=== PATIENT | female | born 1935 | race Caucasian/White ===

== ENCOUNTER 2017-06-02 16:16 | Inpatient (IN) | payer MEDICARE, OTHER ==
[2017-06-02] MEDS ORDERED: methylPREDNISolone 125 MG* 2 ML VIAL IV ONE (16:51)
[2017-06-02] MEDS ORDERED: Albuterol/Ipratropium NEB.SOL* Albuterol 2.5 MG/Ipratropium 0.5 MG 3 ML INH ONE (16:51)
--- NOTE | 2017-06-02 17:43 | RAD ---
INDICATION: Short of breath COMPARISON: March 23, 2015 TECHNIQUE: An AP portable view obtained at 1715 hours is submitted. FINDINGS: Bones/Soft Tissues: There are no acute bony findings. There is sternotomy. There is a scoliotic deformity. There is prior lumbar fusion. Cardiomediastinal: The cardiomediastinal silhouette is unchanged. The heart is normal in size. There is prior valvular surgery. Lungs: There is hyperinflation with chronic interstitial change. Pleura: There are no pleural effusions. Other: None IMPRESSION: HYPERINFLATION. POSTOPERATIVE CHANGE. NO ACUTE FINDINGS.
[2017-06-02 18:02] LABS: ABS Basophils 0 10^3/ul (0-0.2); ABS Eosinophils 0 10^3/ul (0-0.6); ABS Lymphocytes 0.9 10^3/ul (1.0-4.8); ABS Monocytes 0.5 10^3/ul (0-0.8); ABS Neutrophils 3.8 10^3/ul (1.5-7.7); ABS Nucleated RBC 0 10^3/ul; Eosinophil % 0.8 % (0-6); Hematocrit 43 % (35-47); Hemoglobin 14.3 g/dl (12.0-16.0); Lymphocyte % 16.4 % (25-47); Mean Corpuscular HGB Conc 33 g/dl (31-36); Mean Corpuscular Hemoglobin 32 pg (27-31); Mean Corpuscular Volume 95 fL (80-97); Mean Platelet Volume 9 um3 (7.4-10.4); Nucleated Red Blood Cells % 0.2; Platelet Count 148 10^3/ul (150-450); Red Cell Distribution Width 13 % (10.5-15); White Blood Count 5.2 10^3/ul (3.5-10.8)
[2017-06-02 18:16] LABS: EGFR Non-African American 54.3 (>60)
[2017-06-02 18:18] LABS: INR 0.94 (0.77-1.02)
[2017-06-02] MEDS ORDERED: Oseltamivir CAP* 75 MG CAP PO ONE (18:35)
[2017-06-02] MEDS ORDERED: HYDROcodone/ACETAMIN 5-325 MG* 1 TAB PO PRN (19:01)
[2017-06-02] MEDS ORDERED: Nitroglycerin TAB 0.4 MG* 0.4 MG TAB SL PRN (19:01)
[2017-06-02] MEDS ORDERED: Cetirizine* 10 MG TAB PO PRN (19:01)
[2017-06-02 19:28] LABS: Urine Appearance Clear; Urine Blood Negative (Negative); Urine Color Yellow; Urine Ketones Negative (Negative); Urine Protein 1+(30 mg/dL) (Negative); Urine Specific Gravity 1.019 (1.010-1.030); Urine Urobilinogen Negative (Negative)
[2017-06-02] MEDS ORDERED: Azithromycin TAB* 250 MG PO ONE ×2 (19:32)
[2017-06-02] MEDS ORDERED: Acetaminophen TAB* 325 MG PO PRN (19:36)
[2017-06-02] MEDS: Mometasone/Formoter 200/5 MDI INH SCH (19:55)
[2017-06-02] MEDS: Albuterol/Ipratropium NEB.SOL* Albuterol 2.5 MG/Ipratropium 0.5 MG 3 ML INH SCH (19:55)
[2017-06-02] MEDS: NS 0.9% 1000 ML* 1,000 ML IV SCH (21:13)
[2017-06-02] MEDS: Atorvastatin* 20 MG TAB PO SCH (21:28)
[2017-06-02] MEDS: ceFUROXime TAB(*) 250 MG PO SCH (21:28)
--- NOTE | 2017-06-02 22:15 | HP ---
HISTORY AND PHYSICAL: DATE OF ADMISSION: 06/02/17 ADMITTING PROVIDER: Vin Diego MD PRIMARY CARE PROVIDER: Dr. Milligan. CHIEF COMPLAINT: "Breathing hard; sorting out her medications." HISTORY OF PRESENT ILLNESS AND HOSPITAL COURSE: Charline Reyes is an 81-year-old female with past medical history of CAD, status post 2-vessel CABG and mitral valve repair in 2008, COPD, hypertension, hyperlipidemia, osteoporosis, diverticulitis (February 2011), who is a resident at [facility], who likely has some degree of dementia as well. She says that she called 911 because she was "breathing hard" and to sort out her medications. She is unable to give a clear history of the events but says that she has had a cough over the last week or so and at some point, saw Dr. Milligan and seems to have been prescribed cefuroxime 500 mg b.i.d. starting on 05/31/17. Her chief complaint actually seems to be that she was being told to drink a lot of fluids and orange juice and was not "allowed to eat" as much food as she would like and was getting frustrated. Per EMS, she was not improved on the cefuroxime and had a productive cough. She currently denies any fevers. Has occasional chills. Denies headaches. She has occasional back pains related to her surgical history. Denies abdominal pain or diarrhea. She is somewhat constipated with small marble-like bowel movements. She denies any chest tightness or chest pain. She uses a walker at baseline. On presentation to the [facility] Emergency Room , she was found to be influenza B positive. She was initially tachypneic to 25 on room air, satting 94% and hypoxic recorded to 84% on room air, and started on 2 L nasal cannula and referred to hospitalist service for admission for hypoxic respiratory failure secondary to influenza B. She also attest to nasal congestion. She cannot remember how long she has been at [facility] though when penned down, says a couple weeks. She formally had a condo in [place] which she has sold. PAST MEDICAL HISTORY: Includes hypertension, CAD, status post CABG, mitral valve repair in 2008, depression, frequent falls, COPD, hypertension, osteoporosis, postoperative atrial fibrillation (2008) does not seem to have returned, diverticulitis in 2010. MEDICATIONS: Include: 1. Ceftin 500 mg b.i.d., started on 05/31/17. 2. Atorvastatin 20 mg daily. 3. Fish oil 1000 mg p.o. every other day. 4. Ibuprofen 200 mg p.r.n. 5. Claritin 10 mg p.o. daily p.r.n. 6. Percocet 5/325 mg q.4 hours p.r.n. 7. Nitroglycerin 0.4 mg sublingual every 5 minutes p.r.n. 8. Vitamin D3 5000 units daily. 9. Celecoxib 200 mg every day. 10. Triamterene/hydrochlorothiazide 37.5/25 mg daily. 11. Advair 250 mg/50 mcg twice a day p.r.n. 12. Aspirin 81 mg daily. 13. Metoprolol tartrate 12.5 mg q.h.s. ALLERGIES: BIAXIN, ZITHROMAX, CODEINE, MIDODRINE, LISINOPRIL, PRINIVIL, AVELOX , OXYCODONE, TRAMADOL, DOXYCYCLINE, CLINDAMYCIN, AMBIEN, and MECLIZINE. FAMILY HISTORY: Heart attack in her father at age 55, heart attack in mother at age 78, and brother in his late 80s. SOCIAL HISTORY: The patient is a former teacher. Former smoker, quit 9 years ago, smoked between high school and age 72, approximately 65-pack years. She drinks a half a glass of wine each night at dinner. Her medical surrogate is her daughter, Floresita Arthur, though she is not currently on speaking terms with her and seems to have an estranged relationship. She also has a brother in [place], [place]. She is a DNR/DNI. REVIEW OF SYSTEMS: A complete 14-point review of systems negative except as per HPI. PHYSICAL EXAMINATION GENERAL APPEARANCE: Appears stated age but with poor muscle mass, somewhat cachectic. BMI is 19.9. No acute distress. VITAL SIGNS: Temperature 99.1; heart rate 70s to 90s; respiratory rate 25; O2 sat initially 94%, but dipped down to 84%, currently 93% on 2 L; blood pressure 121/64 initially, dipping down to 95/70 currently. HEENT: Normocephalic, atraumatic. Pupils equal, round, and reactive to light. EOMI NECK: No cervical lymphadenopathy. RESPIRATORY: Bilateral wheezing, both inspiratory and expiratory phase. Coarse rhonchi. No rales CARDIOVASCULAR: Regular rate and rhythm. No murmurs, rubs, or gallops. ABDOMEN: Soft, nontender. Paraumbilical hernia. No rebound, no guarding. The patient had a Sands placed in the emergency room draining clear yellow urine. EXTREMITIES: Warm and well perfused. SKIN: On lower extremities in particular left lower extremity, skin is very thin and occasionally hyperpigmented alternating with hypopigmentation, evidence of prior skin breaks it seems, no active skin breaks. Also ecchymosis on her left forearm about 3 cm in diameter. NEUROLOGIC: Cranial nerves II through XII intact. Clinical Laboratory Scientist strength 5/5. Hip flexion 5/5. Sensation intact bilaterally. LABORATORY DATA: White count 5.2, hemoglobin 14.3, hematocrit 43, platelets 148. INR 0.94. Sodium 137, potassium 4.0, chloride 95, carbon dioxide 38, creatinine 0.98, glucose 94, lactic acid 1.6. LFTs within normal limits. BNP 48. Serology influenza B positive. Urine pending. IMAGING: Chest x-ray showed no acute process, evidence of hyperinflation and evidence of prior valvular surgery. EKG demonstrated normal sinus rhythm, heart rate 72, normal axis, PAC, no T-wave inversions or ST changes, QTC 465, QRS 110. ASSESSMENT AND PLAN: Charline Reyes is an 81-year-old female with past medical history of coronary artery disease, status post CABG, mitral valve repair, and chronic obstructive pulmonary disease with approximately [id number] history, presenting with incompletely articulated history of respiratory distress and junky cough and found to be influenza B positive. She had some slight desaturations in the emergency room and is being admitted to observation status. Tamiflu is being initiated and can be monitored in the safe setting. We will continue her cefuroxime 500 mg b.i.d. for now. Chest x-ray was without evidence of infiltrate. She has no leukocytosis. I suspect this is all influenza B in the setting of chronic obstructive pulmonary disease. She is status post 125 mg of Solu-Medrol in the emergency room. We will continue 40 mg daily, start Dulera, DuoNebs q.6 hours standing and q.2 hours p.r.n. We will also start azithromycin for atypical coverage and get a sputum culture as well. We will get urine, strep pneumoniae antigen. For her coronary artery disease , we will continue her aspirin and nitroglycerin sublingual p.r.n. and her Lipitor in addition to her metoprolol tartrate 12.5 mg daily. For her hypertension, we will hold her triamterene/hydrochlorothiazide in the setting of acute illness and normotension here, titrate back as able. She is being admitted to observation status. We will remove the sands (placed to obtain urine sample apparently). We will not put her on telemetry and she is a DNR/ DNI. Her medical surrogate is Floresita Arthur, her daughter. She will continue the heart healthy diet. [id number]/[facility] #: [id number] MTDD
[2017-06-03] MEDS: Albuterol/Ipratropium NEB.SOL* Albuterol 2.5 MG/Ipratropium 0.5 MG 3 ML INH SCH ×4 (03:51→19:12)
[2017-06-03] MEDS: Mometasone/Formoter 200/5 MDI INH SCH ×2 (07:40→19:12)
[2017-06-03] MEDS: Tiotropium CAP.INH* CAP.INH/18 MCG (USE ORDER SET !) INH SCH (07:40)
[2017-06-03] MEDS ORDERED: Spiriva Inhaler DEVICE* 1 EACH DEVICE INH ONE (09:00)
[2017-06-03] MEDS: Cholecalciferol TAB* 1000 UNITS PO SCH (09:29)
[2017-06-03] MEDS: Atorvastatin* 20 MG TAB PO SCH (09:31)
[2017-06-03] MEDS: predniSONE TAB* 20 MG PO SCH (09:31)
[2017-06-03] MEDS: ceFUROXime TAB(*) 250 MG PO SCH ×2 (09:31→20:51)
[2017-06-03] MEDS: Aspirin EC Low Dose* 81 MG TAB.EC PO SCH (09:36)
[2017-06-03] MEDS: celeCOXIB CAP* 200 MG PO SCH (09:37)
[2017-06-03] MEDS: Oseltamivir SUSP 30 MG dose* 30 MG/5 ML ORAL.SYRIN PO SCH ×2 (10:57→20:51)
[2017-06-03] MEDS: Metoprolol Tartrate TAB* 25 MG PO SCH (10:57)
[2017-06-03] MEDS: NS 0.9% 1000 ML* 1,000 ML IV SCH (11:00)
[2017-06-03] MEDS: Azithromycin TAB* 250 MG PO SCH (14:43)
--- NOTE | 2017-06-03 17:27 | PN ---
Subjective Date of Service: 06/03/17 Interval History: Desat to 88% with PT. Still bronchospastic. Afebrile on 2L. no chest pain Objective Active Medications: Acetaminophen (Tylenol Tab*) 650 mg PO Q4H PRN PRN Reason: FEVER/PAIN Hydrocodone Bitart/Acetaminophen ([place] 5-325 Tab*) 1 tab PO Q4H PRN PRN Reason: PAIN Albuterol/Ipratropium (Duoneb (Albuterol 2.5 Mg/Ipratropium 0.5 Mg)) 1 neb INH Q6H [facility] Last Admin: 06/03/17 14:01 Dose: 1 neb Aspirin (Aspirin Ec Low Dose*) 81 mg PO DAILY [facility] Last Admin: 06/03/17 09:36 Dose: 81 mg Atorvastatin Calcium (Lipitor*) 20 mg PO DAILY [facility] Last Admin: 06/03/17 09:31 Dose: 20 mg Azithromycin (Zithromax Tab*) 250 mg PO DAILY [facility] Last Admin: 06/03/17 14:43 Dose: 250 mg Cefuroxime Axetil (Ceftin Tab(*)) 500 mg PO BID [facility] Last Admin: 06/03/17 09:31 Dose: 500 mg Celecoxib (Celebrex Cap*) 200 mg PO DAILY [facility] Last Admin: 06/03/17 09:37 Dose: 200 mg Cetirizine HCl (Zyrtec*) 10 mg PO DAILY PRN PRN Reason: Allergy Symptoms Cholecalciferol (Vitamin D Tab*) 5,000 units PO DAILY [facility] Last Admin: 06/03/17 09:29 Dose: 5,000 units Metoprolol Tartrate (Lopressor Tab*) 12.5 mg PO DAILY [facility] Last Admin: 06/03/17 10:57 Dose: 12.5 mg Mometasone Furoate/Formoterol Fumar (Dulera 200/5 Mdi*) 2 puff INH BID [facility] Last Admin: 06/03/17 07:40 Dose: 2 puff Nitroglycerin (Nitroglycerin Tab 0.4 Mg*) 0.4 mg SL Q5M PRN PRN Reason: PAIN - CHEST Oseltamivir Phosphate (Tamiflu Susp 30 Mg Dose*) 30 mg PO BID [facility] Last Admin: 06/03/17 10:57 Dose: 30 mg Prednisone (Deltasone Tab*) 40 mg PO DAILY [facility] Last Admin: 06/03/17 09:31 Dose: 40 mg Tiotropium [place] (Spiriva Cap.Inh*) 1 cap INH DAILY [facility] Last Admin: 06/03/17 07:40 Dose: 1 cap.inh Oxygen Devices in Use Now: Nasal Cannula Appearance: NAD, cachexia. Eyes: No Scleral Icterus, PERRLA Ears/Nose/Mouth/Throat: NL Teeth, Lips, Gums Respiratory: - - coarse rhonchi throughout Cardiovascular: NL Sounds; No Murmurs; No JVD, RRR, - - visible sternotomy scar Abdominal: NL Sounds; No Tenderness; No Distention, No Hepatosplenomegaly Extremities: - - trace edema Skin: No Rash or Ulcers, No Nodules or Sclerosis, - - alternating hypo and hyperpigmented skin LLE b/l Neurological: - - oriented to name and hospital Nutrition: Taking PO's Result Diagrams: 06/02/17 17:45 06/02/17 17:45 Additional Lab and Data: Laboratory Results - last 24 hr 06/02/17 17:18 Influenza A (Rapid) Negative Influenza B (Rapid) Positive H Microbiology and Other Data: Microbiology 06/02/17 17:25 Blood Venous Aerobic Blood Culture - Preliminary No Growth Day 1 06/02/17 17:25 Blood Venous Anaerobic Blood Culture - Preliminary No Growth Day 1 06/02/17 17:45 Blood Venous Aerobic Blood Culture - Preliminary No Growth Day 1 06/02/17 17:45 Blood Venous Anaerobic Blood Culture - Preliminary No Growth Day 1 06/03/17 04:00 Urine Legionella Urinary Antigen - Final Negative Legionella 06/03/17 04:00 Urine Streptococcus pneumoniae Ag Screen - Final Negative S. pneumo Antigen 06/02/17 17:05 Nasal Influenza Types A,B Antigen (CRISTELA) - Final Specimen received for Influenza A/B Molecular testing Assess/Plan/Problems-Billing Assessment: 81 yo PMH CAD, MVR s/p repair, COPD, HTN p/w influenza B and hypoxic respiratory failure w/ bronchspasm. - Patient Problems (1) COPD (chronic obstructive pulmonary disease) Current Visit: Yes Status: Acute Code(s): J44.9 - CHRONIC OBSTRUCTIVE PULMONARY DISEASE, UNSPECIFIED SNOMED Code(s): 03020338 Comment: continue dulera, spiriva, duo nebs. prednisone taper. was only on MEGAN upon admission. productive cough. f/u sputum cx cefuroxime(recent home) consider switch to ceftriaxone. Continue azithromycin (2) Influenza B Current Visit: Yes Status: Acute Code(s): J10.1 - FLU DUE TO OTH IDENT INFLUENZA VIRUS W OTH RESP MANIFEST SNOMED Code(s): 29234208 Comment: continue tamiflu. (3) CAD (coronary artery disease) Current Visit: Yes Status: Acute Code(s): I25.10 - ATHSCL HEART DISEASE OF [place] CORONARY ARTERY W/O ANG PCTRS SNOMED Code(s): 74959604 Comment: metoprolol 12.5mg BID, aspirin 81mg daily, atorvastatin 20mg daily. nitro 0.4mg SL prn (4) Falls frequently Current Visit: Yes Status: Acute Code(s): R29.6 - REPEATED FALLS SNOMED Code(s): 274324432 (5) Protein calorie malnutrition Current Visit: Yes Status: Acute Code(s): E46 - UNSPECIFIED PROTEIN-CALORIE MALNUTRITION SNOMED Code(s): 277589041 Status and Disposition: medicine, changed to inpatient. Attending: Vin Diego
--- NOTE | 2017-06-03 20:46 | ED ---
Garrison Carrillo Julia, scribed for Elian Crowder on 06/02/17 at 1914 . Respiratory - HPI Summary HPI Summary: This patient is a 81 year old F BIBA to [facility] with a chief complaint of SOB and cough for the past four days. Patient reports generalized illness and LE edema at baseline. Patient denies pain. Patient has a hx of COPD. - History of Current Complaint Chief Complaint: EDRespiratoryDistress Stated Complaint: GENERAL ILLNESS Time Seen by Provider: 06/02/17 16:38 Hx Obtained From: Patient Onset/Duration: Lasting Days, Still Present Pain Intensity: 0 Character: Cough (Nonproductive) Associated Signs and Symptoms: SOB - and cough Related History: Similar Episode/Dx as - COPD - Allergy/Home Medications Allergies/Adverse Reactions: Allergies Allergy/AdvReac Type Severity Reaction Status Date / Time EDIE Inhibitors Allergy Unknown Verified 06/02/17 19:40 Reaction Details acetaminophen Allergy Nausea And Verified 06/02/17 19:40 Vomiting amiodarone Allergy Unknown Verified 06/02/17 19:40 Reaction Details clarithromycin Allergy Unknown Verified 06/02/17 19:40 Reaction Details codeine Allergy Nausea And Verified 06/02/17 19:40 Vomiting hydrocodone Allergy Nausea And Verified 06/02/17 19:40 Vomiting Iodinated Contrast- Oral and Allergy Swelling Verified 06/02/17 19:40 IV Dye lisinopril Allergy Swelling Verified 06/02/17 19:40 Macrolide Antibiotics Allergy Unknown Verified 06/02/17 19:40 Reaction Details metoprolol Allergy Fatigue Verified 06/02/17 19:40 morphine Allergy Unknown Verified 06/02/17 19:40 Reaction Details oxycodone Allergy Nausea And Verified 06/02/17 19:40 Vomiting pimecrolimus Allergy Unknown Verified 06/02/17 19:40 Reaction Details sirolimus Allergy Unknown Verified 06/02/17 19:40 Reaction Details tacrolimus Allergy Unknown Verified 06/02/17 19:40 Reaction Details tramadol Allergy Swelling Verified 06/02/17 19:40 zolpidem Allergy See Comment Verified 06/02/17 19:41 Home Medications: Home Medications Aspirin EC Low Dose* [Ecotrin EC Low Dose 81 MG*] 81 mg PO DAILY 06/02/17 [ History Confirmed 06/02/17] Cholecalciferol CAP/TAB(NF) [Vitamin D3 CAP/TAB (NF)] 5,000 unit PO DAILY [History Confirmed 06/02/17] Fluticasone-Salmeterol 250-50* [Advair Diskus 250-50*] 1 puff PO BID PRN [History Confirmed 06/02/17] HYDROcodone/ACETAMIN 5-325 MG* [[place] 5-325 TAB*] 1 tab PO Q4H PRN 06/02/17 [ History Confirmed 06/02/17] Ibuprofen/Diphenhydramine HCl [Ibuprofen Pm 200-25 mg] 1 cap PO DAILY PRN [History Confirmed 06/02/17] LoraTADine TAB(NF) [Claritin 10 MG TAB(NF)] 10 mg PO DAILY PRN 06/02/17 [ History Confirmed 06/02/17] Nitroglycerin TAB 0.4 MG* 0.4 mg SL Q5M PRN 06/02/17 [History Confirmed 06/02/17 ] Park[place]-3 Fatty Acids (Nf) [Fish Oil (NF)] 1,000 mg PO DAILY 06/02/17 [History Confirmed 06/02/17] Triamterene/HCTZ 37.5-25 MG* [Dyazide CAP*] 1 cap PO DAILY 06/02/17 [History Confirmed 06/02/17] ceFUROXime TAB(*) [Ceftin TAB 250 MG(*)] 500 mg PO BID 06/02/17 [History Confirmed 06/02/17] PMH/Surg Hx/FS Hx/Imm Hx Endocrine/Hematology History: Denies: Hx Anticoagulant Therapy, Hx Diabetes, Hx Thyroid Disease Cardiovascular History: Reports: Hx Hypertension - benign Denies: Hx Pacemaker/ICD Respiratory History: Reports: Hx Chronic Obstructive Pulmonary Disease (COPD) Denies: Hx Asthma GI History: Denies: Hx Ulcer History: Denies: Hx Renal Disease Musculoskeletal History: Reports: Hx Osteoporosis Neurological History: Denies: Hx Dementia, Hx Seizures Psychiatric History: Denies: Hx Substance Abuse - Surgical History Surgery Procedure, Year, and Place: double bypass in 2008, back surgery; gallbladder and appendix - Immunization History Date of Influenza Vaccine: 01/26 Infectious Disease History: No Infectious Disease History: Denies: Hx Clostridium Difficile, Hx Hepatitis, Hx Human Immunodeficiency Virus (HIV), Hx of Known/Suspected MRSA, Hx Shingles, Hx Tuberculosis, Hx Known/ Suspected VRE, Hx Known/Suspected VRSA, History Other Infectious Disease, Traveled Outside the [place] in Last 30 Days - Family History Known Family History: Positive: Cardiac Disease - Social History Alcohol Use: Daily Alcohol Amount: WINE WITH DINNER Substance Use Type: Reports: None Smoking Status (MU): Former Smoker Type: Cigarettes Have You Smoked in the Last Year: No Review of Systems Positive: Other - generalized illness Positive: Shortness Of Breath, Cough Negative: Myalgia All Other Systems Reviewed And Are Negative: Yes Physical Exam - Summary Physical Exam Summary: Appearance: Well appearing, no pain distress Skin: warm, dry, reflects adequate perfusion Head/face: normal Eyes: EOMI, LINK ENT: normal Neck: supple, non-tender Respiratory: bilateral wheezes and rhonchi breath sounds present Cardiovascular: RRR, pulses symmetrical Abdomen: non-tender, soft Bowel: present Musculoskeletal: bilateral lower extremity edema, strength/ROM intact Neuro: normal, sensory motor intact, A&Ox3 Triage Information Reviewed: Yes Vital Signs On Initial Exam: Initial Vitals Temp Pulse Resp BP Pulse Ox 99.1 F 71 25 121/64 94 06/02/17 16:21 06/02/17 16:21 06/02/17 16:21 06/02/17 16:21 06/02/17 16:21 Vital Signs Reviewed: Yes Diagnostics - Vital Signs Vital Signs Temp Pulse Resp BP Pulse Ox 06/02/17 16:21 99.1 F 71 25 121/64 94 - Laboratory Lab Results: Lab Results 06/02/17 06/02/17 06/02/17 Range/Units 17:18 17:45 17:45 WBC (3.5-10.8) 10^3/ul RBC (4.0-5.4) 10^6/ul Hgb (12.0-16.0) g/dl Hct (35-47) % MCV (80-97) fL MCH (27-31) pg MCHC (31-36) g/dl RDW (10.5-15) % Plt Count (150-450) 10^3/ul MPV (7.4-10.4) um3 Neut % (Auto) (38-83) % Lymph % (Auto) (25-47) % Coal % (Auto) (1-9) % Eos % (Auto) (0-6) % Baso % (Auto) (0-2) % Absolute Neuts (auto) (1.5-7.7) 10^3/ul Absolute Lymphs (auto) (1.0-4.8) 10^3/ul Absolute Monos (auto) (0-0.8) 10^3/ul Absolute Eos (auto) (0-0.6) 10^3/ul Absolute Basos (auto) (0-0.2) 10^3/ul Absolute Nucleated RBC 10^3/ul Nucleated RBC % INR (Anticoag Therapy) 0.94 (0.77-1.02) APTT 30.8 (26.0-36.3) seconds Sodium (133-145) mmol/L Potassium (3.5-5.0) mmol/L Chloride (101-111) mmol/L Carbon Dioxide (22-32) mmol/L Anion Gap (2-11) mmol/L BUN (6-24) mg/dL Creatinine (0.51-0.95) mg/dL Est GFR ( Amer) (>60) Est GFR (Non-Af Amer) (>60) BUN/Creatinine Ratio (8-20) Glucose (70-100) mg/dL Lactic Acid (0.5-2.0) mmol/L Calcium (8.6-10.3) mg/dL Total Bilirubin (0.2-1.0) mg/dL AST (13-39) U/L ALT (7-52) U/L Alkaline Phosphatase (34-104) U/L Troponin I (<0.04) ng/mL B-Natriuretic Peptide 48 ( - 100) pg/mL Total Protein (6.4-8.9) g/dL Albumin (3.2-5.2) g/dL Globulin (2-4) g/dL Albumin/Globulin Ratio (1-3) Urine Color Urine Appearance Urine pH (5-9) Ur Specific [place] (1.010-1.030) Urine Protein (Negative) Urine Ketones (Negative) Urine Blood (Negative) Urine Nitrate (Negative) Urine Bilirubin (Negative) Urine Urobilinogen (Negative) Ur Leukocyte Esterase (Negative) Urine WBC (Auto) (Absent) Urine RBC (Auto) (Absent) Ur Squamous Epith Cells (Absent) Urine Bacteria (Absent) Hyaline Casts (Absent) Urine Glucose (Negative) Urine Ascorbic Acid (Negative) Influenza A (Rapid) Negative (Negative) Influenza B (Rapid) Positive H (Negative) 06/02/17 06/02/17 06/02/17 Range/Units 17:45 17:45 17:45 WBC 5.2 (3.5-10.8) 10^3/ul RBC 4.50 (4.0-5.4) 10^6/ul Hgb 14.3 (12.0-16.0) g/dl Hct 43 (35-47) % MCV 95 (80-97) fL MCH 32 H (27-31) pg MCHC 33 (31-36) g/dl RDW 13 (10.5-15) % Plt Count 148 L (150-450) 10^3/ul MPV 9 (7.4-10.4) um3 Neut % (Auto) 73.1 (38-83) % Lymph % (Auto) 16.4 L (25-47) % Coal % (Auto) 9.0 (1-9) % Eos % (Auto) 0.8 (0-6) % Baso % (Auto) 0.7 (0-2) % Absolute Neuts (auto) 3.8 (1.5-7.7) 10^3/ul Absolute Lymphs (auto) 0.9 L (1.0-4.8) 10^3/ul Absolute Monos (auto) 0.5 (0-0.8) 10^3/ul Absolute Eos (auto) 0 (0-0.6) 10^3/ul Absolute Basos (auto) 0 (0-0.2) 10^3/ul Absolute Nucleated RBC 0 10^3/ul Nucleated RBC % 0.2 INR (Anticoag Therapy) (0.77-1.02) APTT (26.0-36.3) seconds Sodium 137 (133-145) mmol/L Potassium 4.0 (3.5-5.0) mmol/L Chloride 95 L (101-111) mmol/L Carbon Dioxide 38 H (22-32) mmol/L Anion Gap 4 (2-11) mmol/L BUN 25 H (6-24) mg/dL Creatinine 0.98 H (0.51-0.95) mg/dL Est GFR ( Amer) 69.9 (>60) Est GFR (Non-Af Amer) 54.3 (>60) BUN/Creatinine Ratio 25.5 H (8-20) Glucose 94 (70-100) mg/dL Lactic Acid 1.6 (0.5-2.0) mmol/L Calcium 9.5 (8.6-10.3) mg/dL Total Bilirubin 0.70 (0.2-1.0) mg/dL AST 17 (13-39) U/L ALT 8 (7-52) U/L Alkaline Phosphatase 73 (34-104) U/L Troponin I 0.00 (<0.04) ng/mL B-Natriuretic Peptide ( - 100) pg/mL Total Protein 6.5 (6.4-8.9) g/dL Albumin 3.6 (3.2-5.2) g/dL Globulin 2.9 (2-4) g/dL Albumin/Globulin Ratio 1.2 (1-3) Urine Color Urine Appearance Urine pH (5-9) Ur Specific [place] (1.010-1.030) Urine Protein (Negative) Urine Ketones (Negative) Urine Blood (Negative) Urine Nitrate (Negative) Urine Bilirubin (Negative) Urine Urobilinogen (Negative) Ur Leukocyte Esterase (Negative) Urine WBC (Auto) (Absent) Urine RBC (Auto) (Absent) Ur Squamous Epith Cells (Absent) Urine Bacteria (Absent) Hyaline Casts (Absent) Urine Glucose (Negative) Urine Ascorbic Acid (Negative) Influenza A (Rapid) (Negative) Influenza B (Rapid) (Negative) 06/02/17 06/02/17 Range/Units 18:20 19:46 WBC (3.5-10.8) 10^3/ul RBC (4.0-5.4) 10^6/ul Hgb (12.0-16.0) g/dl Hct (35-47) % MCV (80-97) fL MCH (27-31) pg MCHC (31-36) g/dl RDW (10.5-15) % Plt Count (150-450) 10^3/ul MPV (7.4-10.4) um3 Neut % (Auto) (38-83) % Lymph % (Auto) (25-47) % Coal % (Auto) (1-9) % Eos % (Auto) (0-6) % Baso % (Auto) (0-2) % Absolute Neuts (auto) (1.5-7.7) 10^3/ul Absolute Lymphs (auto) (1.0-4.8) 10^3/ul Absolute Monos (auto) (0-0.8) 10^3/ul Absolute Eos (auto) (0-0.6) 10^3/ul Absolute Basos (auto) (0-0.2) 10^3/ul Absolute Nucleated RBC 10^3/ul Nucleated RBC % INR (Anticoag Therapy) (0.77-1.02) APTT (26.0-36.3) seconds Sodium (133-145) mmol/L Potassium (3.5-5.0) mmol/L Chloride (101-111) mmol/L Carbon Dioxide (22-32) mmol/L Anion Gap (2-11) mmol/L BUN (6-24) mg/dL Creatinine (0.51-0.95) mg/dL Est GFR ( Amer) (>60) Est GFR (Non-Af Amer) (>60) BUN/Creatinine Ratio (8-20) Glucose (70-100) mg/dL Lactic Acid (0.5-2.0) mmol/L Calcium (8.6-10.3) mg/dL Total Bilirubin (0.2-1.0) mg/dL AST (13-39) U/L ALT (7-52) U/L Alkaline Phosphatase (34-104) U/L Troponin I 0.00 (<0.04) ng/mL B-Natriuretic Peptide ( - 100) pg/mL Total Protein (6.4-8.9) g/dL Albumin (3.2-5.2) g/dL Globulin (2-4) g/dL Albumin/Globulin Ratio (1-3) Urine Color Yellow Urine Appearance Clear Urine pH 7.0 (5-9) Ur Specific [place] 1.019 (1.010-1.030) Urine Protein 1+(30 mg/dl) H (Negative) Urine Ketones Negative (Negative) Urine Blood Negative (Negative) Urine Nitrate Negative (Negative) Urine Bilirubin Negative (Negative) Urine Urobilinogen Negative (Negative) Ur Leukocyte Esterase Negative (Negative) Urine WBC (Auto) Trace(0-5/hpf) (Absent) Urine RBC (Auto) Trace(0-2/hpf) (Absent) Ur Squamous Epith Cells Present H (Absent) Urine Bacteria Absent (Absent) Hyaline Casts Present H (Absent) Urine Glucose Negative (Negative) Urine Ascorbic Acid * H (Negative) Influenza A (Rapid) (Negative) Influenza B (Rapid) (Negative) Result Diagrams: 06/02/17 17:45 06/02/17 17:45 Lab Statement: Any lab studies that have been ordered have been reviewed, and results considered in the medical decision making process. - Radiology CXR Radiology Interpretation Completed By: Radiologist - HYPERINFLATION. POSTOPERATIVE CHANGE. NO ACUTE FINDINGS. ED Physician has reviewed this report. - EKG 1651 Cardiac Rate: NL EKG Rhythm: Sinus Rhythm - no acute changes Disposition - Course Course Of Treatment: This patient presents with SOB and cough for the past four days. Patient has a hx of COPD. An EKG is unremarkable. A CXR reveals no acute findings.Bloodwork was completed. Labs were unremarkable except for a postive influenza B. Dr. Diego agrees to admit this patient. - Differential Dx - Cardiopulmonary Differential Diagnoses - Cardiopulmonary: Acute Dyspnea, Bronchitis, CHF, Exacerbation Of COPD, Influenza, Lower Resp Infection - Diagnoses Provider Diagnoses: Influenza B, COPD exacerbation - Critical Care Time Critical Care Time: 30-74 min Discharge - Discharge Plan Condition: Stable Disposition: ADMITTED TO [facility] documentation as recorded by the Garrison lala Julia accurately reflects the service I personally performed and the decisions made by Lakesha andino Emmanuel.
[2017-06-04] MEDS: Albuterol/Ipratropium NEB.SOL* Albuterol 2.5 MG/Ipratropium 0.5 MG 3 ML INH SCH ×4 (01:35→20:15)
[2017-06-04] MEDS: Tiotropium CAP.INH* CAP.INH/18 MCG (USE ORDER SET !) INH SCH (07:15)
[2017-06-04] MEDS: Mometasone/Formoter 200/5 MDI INH SCH ×2 (07:15→20:15)
[2017-06-04] MEDS: predniSONE TAB* 20 MG PO SCH (08:45)
[2017-06-04] MEDS: Azithromycin TAB* 250 MG PO SCH (08:45)
[2017-06-04] MEDS: ceFUROXime TAB(*) 250 MG PO SCH ×2 (08:45→22:48)
[2017-06-04] MEDS: Cholecalciferol TAB* 1000 UNITS PO SCH (08:45)
[2017-06-04] MEDS: celeCOXIB CAP* 200 MG PO SCH (08:45)
[2017-06-04] MEDS: Metoprolol Tartrate TAB* 25 MG PO SCH (08:45)
[2017-06-04] MEDS: Aspirin EC Low Dose* 81 MG TAB.EC PO SCH (08:45)
[2017-06-04] MEDS: Atorvastatin* 20 MG TAB PO SCH (08:45)
[2017-06-04] MEDS: Oseltamivir SUSP 30 MG dose* 30 MG/5 ML ORAL.SYRIN PO SCH ×2 (08:53→22:48)
[2017-06-04 09:32] LABS: ABS Basophils 0 10^3/ul (0-0.2); ABS Eosinophils 0 10^3/ul (0-0.6); ABS Lymphocytes 0.7 10^3/ul (1.0-4.8); ABS Monocytes 0.8 10^3/ul (0-0.8); ABS Neutrophils 7.5 10^3/ul (1.5-7.7); ABS Nucleated RBC 0 10^3/ul; Eosinophil % 0 % (0-6); Hematocrit 43 % (35-47); Hemoglobin 14.6 g/dl (12.0-16.0); Lymphocyte % 7.7 % (25-47); Mean Corpuscular HGB Conc 34 g/dl (31-36); Mean Corpuscular Hemoglobin 32 pg (27-31); Mean Corpuscular Volume 95 fL (80-97); Mean Platelet Volume 8 um3 (7.4-10.4); Nucleated Red Blood Cells % 0.1; Platelet Count 174 10^3/ul (150-450); Red Blood Count 4.58 10^6/ul (4.0-5.4); Red Cell Distribution Width 13 % (10.5-15); White Blood Count 8.9 10^3/ul (3.5-10.8)
[2017-06-04 09:41] LABS: EGFR Non-African American 60.7 (>60)
--- NOTE | 2017-06-04 20:27 | PN ---
Subjective Date of Service: 06/04/17 Interval History: Desat to 84% with ambulation on RA. Not oriented to year. nonproductive cough. Lung exam bad but improving does not remember last BM Afebrile, Cultures negative. Objective Active Medications: Acetaminophen (Tylenol Tab*) 650 mg PO Q4H PRN PRN Reason: FEVER/PAIN Hydrocodone Bitart/Acetaminophen ([place] 5-325 Tab*) 1 tab PO Q4H PRN PRN Reason: PAIN Albuterol/Ipratropium (Duoneb (Albuterol 2.5 Mg/Ipratropium 0.5 Mg)) 1 neb INH [id number] AWAKE [facility] Last Admin: 06/04/17 20:15 Dose: 1 neb Aspirin (Aspirin Ec Low Dose*) 81 mg PO DAILY [facility] Last Admin: 06/04/17 08:45 Dose: 81 mg Atorvastatin Calcium (Lipitor*) 20 mg PO DAILY [facility] Last Admin: 06/04/17 08:45 Dose: 20 mg Azithromycin (Zithromax Tab*) 250 mg PO DAILY [facility] Last Admin: 06/04/17 08:45 Dose: 250 mg Cefuroxime Axetil (Ceftin Tab(*)) 500 mg PO BID [facility] Last Admin: 06/04/17 08:45 Dose: 500 mg Celecoxib (Celebrex Cap*) 200 mg PO DAILY [facility] Last Admin: 06/04/17 08:45 Dose: 200 mg Cetirizine HCl (Zyrtec*) 10 mg PO DAILY PRN PRN Reason: Allergy Symptoms Cholecalciferol (Vitamin D Tab*) 5,000 units PO DAILY [facility] Last Admin: 06/04/17 08:45 Dose: 5,000 units Metoprolol Tartrate (Lopressor Tab*) 12.5 mg PO DAILY [facility] Last Admin: 06/04/17 08:45 Dose: 12.5 mg Mometasone Furoate/Formoterol Fumar (Dulera 200/5 Mdi*) 2 puff INH BID [facility] Last Admin: 06/04/17 20:15 Dose: 2 puff Nitroglycerin (Nitroglycerin Tab 0.4 Mg*) 0.4 mg SL Q5M PRN PRN Reason: PAIN - CHEST Oseltamivir Phosphate (Tamiflu Susp 30 Mg Dose*) 30 mg PO BID [facility] Last Admin: 06/04/17 08:53 Dose: 30 mg Prednisone (Deltasone Tab*) 40 mg PO DAILY [facility] Last Admin: 06/04/17 08:45 Dose: 40 mg Tiotropium [place] (Spiriva Cap.Inh*) 1 cap INH DAILY [facility] Last Admin: 06/04/17 07:15 Dose: 1 cap.inh Vital Signs - 8 hr 06/04/17 06/04/17 06/04/17 14:00 15:23 19:39 Temperature 97.4 F 98.1 F Pulse Rate 65 78 77 Respiratory 14 18 16 Rate Blood Pressure 102/47 131/59 (mmHg) O2 Sat by Pulse 92 95 91 Oximetry 06/04/17 06/04/17 19:56 20:15 Temperature Pulse Rate 77 Respiratory 16 16 Rate Blood Pressure (mmHg) O2 Sat by Pulse 91 Oximetry Oxygen Devices in Use Now: None Appearance: NAD Eyes: No Scleral Icterus, PERRLA Ears/Nose/Mouth/Throat: NL Teeth, Lips, Gums Respiratory: Symmetrical Chest Expansion and Respiratory Effort, - - rhoncorous diffusely but improved from day prior. no rales or wheezing. Cardiovascular: NL Sounds; No Murmurs; No JVD, RRR Extremities: No Edema Skin: - - hypo and hyperpigmented skin LE b/l with sensitivity to touch, unchanged. Neurological: - - oriented to name but not year. Nutrition: Taking PO's Result Diagrams: 06/04/17 08:57 06/04/17 08:57 Additional Lab and Data: Laboratory Results - last 24 hr 06/04/17 06/04/17 08:57 08:57 WBC 8.9 RBC 4.58 Hgb 14.6 Hct 43 MCV 95 MCH 32 H MCHC 34 RDW 13 Plt Count 174 MPV 8 Neut % (Auto) 83.7 H Lymph % (Auto) 7.[address] [place] % (Auto) 8.6 H Eos % (Auto) 0 Baso % (Auto) 0 Absolute Neuts (auto) 7.5 Absolute Lymphs (auto) 0.7 L Absolute Monos (auto) 0.8 Absolute Eos (auto) 0 Absolute Basos (auto) 0 Absolute Nucleated RBC 0 Nucleated RBC % 0.1 Sodium 139 Potassium 3.6 Chloride 100 L Carbon Dioxide 32 Anion Gap 7 BUN 27 H Creatinine 0.89 Est GFR ( Amer) 78.1 Est GFR (Non-Af Amer) 60.7 BUN/Creatinine Ratio 30.3 H Glucose 101 H Calcium 9.4 Microbiology and Other Data: Microbiology 06/02/17 17:25 Blood Venous Aerobic Blood Culture - Preliminary No Growth Day 2 06/02/17 17:25 Blood Venous Anaerobic Blood Culture - Preliminary No Growth Day 2 06/02/17 17:45 Blood Venous Aerobic Blood Culture - Preliminary No Growth Day 2 06/02/17 17:45 Blood Venous Anaerobic Blood Culture - Preliminary No Growth Day 2 06/03/17 04:00 Urine Legionella Urinary Antigen - Final Negative Legionella 06/03/17 04:00 Urine Streptococcus pneumoniae Ag Screen - Final Negative S. pneumo Antigen 06/02/17 17:05 Nasal Influenza Types A,B Antigen (CRISTELA) - Final Specimen received for Influenza A/B Molecular testing Assess/Plan/Problems-Billing Assessment: 81 yo PMH CAD, MVR s/p repair, COPD, HTN p/w influenza B and hypoxic respiratory failure w/ bronchspasm. - Patient Problems (1) COPD (chronic obstructive pulmonary disease) Current Visit: Yes Status: Acute Code(s): J44.9 - CHRONIC OBSTRUCTIVE PULMONARY DISEASE, UNSPECIFIED SNOMED Code(s): 96597122 Comment: continue dulera, spiriva, duo nebs. prednisone taper. was only on MEGAN upon admission. non-productive enough cough to get sputum sample. was continued on cefuroxime(recent started at home) but will switch to ceftriaxone now. Continue azithromycin (2) Influenza B Current Visit: Yes Status: Acute Code(s): J10.1 - FLU DUE TO OTH IDENT INFLUENZA VIRUS W OTH RESP MANIFEST SNOMED Code(s): 34871689 Comment: continue tamiflu. day 06/14 (3) CAD (coronary artery disease) Current Visit: Yes Status: Acute Code(s): I25.10 - ATHSCL HEART DISEASE OF [place] CORONARY ARTERY W/O ANG PCTRS SNOMED Code(s): 48118536 Comment: metoprolol 12.5mg BID, aspirin 81mg daily, atorvastatin 20mg daily. nitro 0.4mg SL prn (4) Falls frequently Current Visit: Yes Status: Acute Code(s): R29.6 - REPEATED FALLS SNOMED Code(s): 280503718 (5) Protein calorie malnutrition Current Visit: Yes Status: Acute Code(s): E46 - UNSPECIFIED PROTEIN-CALORIE MALNUTRITION SNOMED Code(s): 893217080 Comment: eating lunch today. Status and Disposition: medicine inpatient.
[2017-06-05] MEDS: Albuterol/Ipratropium NEB.SOL* Albuterol 2.5 MG/Ipratropium 0.5 MG 3 ML INH SCH ×2 (01:16→07:30)
[2017-06-05] MEDS: Mometasone/Formoter 200/5 MDI INH SCH ×2 (07:31→19:42)
[2017-06-05] MEDS: Tiotropium CAP.INH* CAP.INH/18 MCG (USE ORDER SET !) INH SCH (07:31)
[2017-06-05] MEDS: Cholecalciferol TAB* 1000 UNITS PO SCH (09:15)
[2017-06-05] MEDS: Azithromycin TAB* 250 MG PO SCH (09:15)
[2017-06-05] MEDS: Aspirin EC Low Dose* 81 MG TAB.EC PO SCH (09:16)
[2017-06-05] MEDS: predniSONE TAB* 20 MG PO SCH (09:16)
[2017-06-05] MEDS: Atorvastatin* 20 MG TAB PO SCH (09:16)
[2017-06-05] MEDS: celeCOXIB CAP* 200 MG PO SCH (09:18)
[2017-06-05] MEDS: Metoprolol Tartrate TAB* 25 MG PO SCH (09:18)
[2017-06-05] MEDS: Oseltamivir SUSP 30 MG dose* 30 MG/5 ML ORAL.SYRIN PO SCH (09:20)
[2017-06-05] MEDS: cefTRIAXone(*) 1 GM in NS 0.9% 50 ML* 50 ML IVPB SCH (09:24)
[2017-06-05] MEDS ORDERED: Albuterol/Ipratropium NEB.SOL* Albuterol 2.5 MG/Ipratropium 0.5 MG 3 ML INH PRN (12:13)
--- NOTE | 2017-06-05 16:49 | PN ---
Subjective Date of Service: 06/05/17 Interval History: Seemingly oriented this AM but also talking about how she has "2 flus" +cough denies SOB, CP, N/V RA 85% Objective Active Medications: Acetaminophen (Tylenol Tab*) 650 mg PO Q4H PRN PRN Reason: FEVER/PAIN Hydrocodone Bitart/Acetaminophen ([place] 5-325 Tab*) 1 tab PO Q4H PRN PRN Reason: PAIN Albuterol/Ipratropium (Duoneb (Albuterol 2.5 Mg/Ipratropium 0.5 Mg)) 1 neb INH Q4H PRN PRN Reason: SOB/WHEEZING Aspirin (Aspirin Ec Low Dose*) 81 mg PO DAILY [facility] Last Admin: 06/05/17 09:16 Dose: 81 mg Atorvastatin Calcium (Lipitor*) 20 mg PO DAILY [facility] Last Admin: 06/05/17 09:16 Dose: 20 mg Azithromycin (Zithromax Tab*) 250 mg PO DAILY [facility] Last Admin: 06/05/17 09:15 Dose: 250 mg Celecoxib (Celebrex Cap*) 200 mg PO DAILY [facility] Last Admin: 06/05/17 09:18 Dose: 200 mg Cetirizine HCl (Zyrtec*) 10 mg PO DAILY PRN PRN Reason: Allergy Symptoms Cholecalciferol (Vitamin D Tab*) 5,000 units PO DAILY [facility] Last Admin: 06/05/17 09:15 Dose: 5,000 units Ceftriaxone Sodium 1 gm/ (Sodium Chloride) 50 mls @ 200 mls/hr IVPB Q24H [facility] Last Admin: 06/05/17 09:24 Dose: 200 mls/hr Metoprolol Tartrate (Lopressor Tab*) 12.5 mg PO DAILY [facility] Last Admin: 06/05/17 09:18 Dose: 12.5 mg Mometasone Furoate/Formoterol Fumar (Dulera 200/5 Mdi*) 2 puff INH BID [facility] Last Admin: 06/05/17 07:31 Dose: 2 puff Nitroglycerin (Nitroglycerin Tab 0.4 Mg*) 0.4 mg SL Q5M PRN PRN Reason: PAIN - CHEST Oseltamivir Phosphate (Tamiflu Susp 30 Mg Dose*) 30 mg PO BID [facility] Last Admin: 06/05/17 09:20 Dose: 30 mg Prednisone (Deltasone Tab*) 40 mg PO DAILY [facility] Last Admin: 06/05/17 09:16 Dose: 40 mg Tiotropium [place] (Spiriva Cap.Inh*) 1 cap INH DAILY [facility] Last Admin: 06/05/17 07:31 Dose: 1 cap.inh Oxygen Devices in Use Now: Nasal Cannula Appearance: NAD Eyes: No Scleral Icterus, PERRLA Ears/Nose/Mouth/Throat: Clear Oropharnyx, Mucous Membranes Moist Respiratory: Symmetrical Chest Expansion and Respiratory Effort, - - right greater than left rales Cardiovascular: RRR, - - 2/6 EUSEBIO Abdominal: NL Sounds; No Tenderness; No Distention, No Hepatosplenomegaly Lymphatic: No Cervical Adenopathy Extremities: - - 1+ LE edema Neurological: Alert and Oriented x 3, - - cn2-12 intact, poor attention Result Diagrams: 06/04/17 08:57 06/04/17 08:57 Additional Lab and Data: Laboratory Results - last 24 hr 06/04/17 06/04/17 08:57 08:57 WBC 8.9 RBC 4.58 Hgb 14.6 Hct 43 MCV 95 MCH 32 H MCHC 34 RDW 13 Plt Count 174 MPV 8 Neut % (Auto) 83.7 H Lymph % (Auto) 7.7 L [place] % (Auto) 8.6 H Eos % (Auto) 0 Baso % (Auto) 0 Absolute Neuts (auto) 7.5 Absolute Lymphs (auto) 0.7 L Absolute Monos (auto) 0.8 Absolute Eos (auto) 0 Absolute Basos (auto) 0 Absolute Nucleated RBC 0 Nucleated RBC % 0.1 Sodium 139 Potassium 3.6 Chloride 100 L Carbon Dioxide 32 Anion Gap 7 BUN 27 H Creatinine 0.89 Est GFR ( Amer) 78.1 Est GFR (Non-Af Amer) 60.7 BUN/Creatinine Ratio 30.3 H Glucose 101 H Calcium 9.4 Microbiology and Other Data: Microbiology 06/02/17 17:25 Blood Venous Aerobic Blood Culture - Preliminary No Growth Day 2 06/02/17 17:25 Blood Venous Anaerobic Blood Culture - Preliminary No Growth Day 2 06/02/17 17:45 Blood Venous Aerobic Blood Culture - Preliminary No Growth Day 2 06/02/17 17:45 Blood Venous Anaerobic Blood Culture - Preliminary No Growth Day 2 06/03/17 04:00 Urine Legionella Urinary Antigen - Final Negative Legionella 06/03/17 04:00 Urine Streptococcus pneumoniae Ag Screen - Final Negative S. pneumo Antigen 06/02/17 17:05 Nasal Influenza Types A,B Antigen (CRISTELA) - Final Specimen received for Influenza A/B Molecular testing Assess/Plan/Problems-Billing Assessment: 81 yo PMH CAD, MVR s/p repair, COPD, HTN p/w influenza B and hypoxic respiratory failure w/ bronchspasm. - Patient Problems (1) Influenza B Comment: continue tamiflu. day 3 (2) CAD (coronary artery disease) Comment: metoprolol 12.5mg BID aspirin 81mg daily atorvastatin 20mg daily. nitro 0.4mg SL prn (3) COPD (chronic obstructive pulmonary disease) Comment: was only on MEGAN upon admission. continue dulera, spiriva, duo nebs. prednisone 40mg was continued on cefuroxime(recent started at home) but will switch to ceftriaxone now. Continue azithromycin - last day abx tomorrow (4) Protein calorie malnutrition (5) DVT prophylaxis Comment: HSQ Status and Disposition: medicine inpatient
[2017-06-06] MEDS: Heparin VIAL(*) 5000 UNITS/ML VIAL (FIVE THOUSAND) SUBCUT SCH ×2 (00:21→05:43)
[2017-06-06] MEDS: Oseltamivir SUSP 30 MG dose* 30 MG/5 ML ORAL.SYRIN PO SCH ×2 (00:21→07:29)
[2017-06-06] MEDS: Cholecalciferol TAB* 1000 UNITS PO SCH (07:28)
[2017-06-06] MEDS: Azithromycin TAB* 250 MG PO SCH (07:28)
[2017-06-06] MEDS: Aspirin EC Low Dose* 81 MG TAB.EC PO SCH (07:28)
[2017-06-06] MEDS: Atorvastatin* 20 MG TAB PO SCH (07:28)
[2017-06-06] MEDS: Metoprolol Tartrate TAB* 25 MG PO SCH (07:29)
[2017-06-06] MEDS: celeCOXIB CAP* 200 MG PO SCH (07:29)
[2017-06-06] MEDS: cefTRIAXone(*) 1 GM in NS 0.9% 50 ML* 50 ML IVPB SCH (07:29)
[2017-06-06] MEDS: predniSONE TAB* 20 MG PO SCH (07:29)
[2017-06-06] MEDS: Tiotropium CAP.INH* CAP.INH/18 MCG (USE ORDER SET !) INH SCH (07:50)
[2017-06-06] MEDS: Mometasone/Formoter 200/5 MDI INH SCH (07:50)
[2017-06-06 12:54] VITALS: BP 100/53
--- NOTE | 2017-06-06 13:47 | PN ---
Subjective Date of Service: 06/06/17 Interval History: desat to 85% RA while asleep and 88% RA awake. Afebrile. Objective Active Medications: Acetaminophen (Tylenol Tab*) 650 mg PO Q4H PRN PRN Reason: FEVER/PAIN Hydrocodone Bitart/Acetaminophen ([place] 5-325 Tab*) 1 tab PO Q4H PRN PRN Reason: PAIN Albuterol/Ipratropium (Duoneb (Albuterol 2.5 Mg/Ipratropium 0.5 Mg)) 1 neb INH Q4H PRN PRN Reason: SOB/WHEEZING Aspirin (Aspirin Ec Low Dose*) 81 mg PO DAILY [facility] Last Admin: 06/06/17 07:28 Dose: 81 mg Atorvastatin Calcium (Lipitor*) 20 mg PO DAILY [facility] Last Admin: 06/06/17 07:28 Dose: 20 mg Azithromycin (Zithromax Tab*) 250 mg PO DAILY [facility] Last Admin: 06/06/17 07:28 Dose: 250 mg Celecoxib (Celebrex Cap*) 200 mg PO DAILY [facility] Last Admin: 06/06/17 07:29 Dose: 200 mg Cetirizine HCl (Zyrtec*) 10 mg PO DAILY PRN PRN Reason: Allergy Symptoms Cholecalciferol (Vitamin D Tab*) 5,000 units PO DAILY [facility] Last Admin: 06/06/17 07:28 Dose: 5,000 units Heparin Sodium (Porcine) (Heparin Vial(*)) 5,000 units SUBCUT Q8HR [facility] Last Admin: 06/06/17 05:43 Dose: 5,000 units Ceftriaxone Sodium 1 gm/ (Sodium Chloride) 50 mls @ 200 mls/hr IVPB Q24H [facility] Last Admin: 06/06/17 07:29 Dose: 200 mls/hr Metoprolol Tartrate (Lopressor Tab*) 12.5 mg PO DAILY [facility] Last Admin: 06/06/17 07:29 Dose: 12.5 mg Mometasone Furoate/Formoterol Fumar (Dulera 200/5 Mdi*) 2 puff INH BID [facility] Last Admin: 06/06/17 07:50 Dose: 2 puff Nitroglycerin (Nitroglycerin Tab 0.4 Mg*) 0.4 mg SL Q5M PRN PRN Reason: PAIN - CHEST Oseltamivir Phosphate (Tamiflu Susp 30 Mg Dose*) 30 mg PO BID [facility] Last Admin: 06/06/17 07:29 Dose: 30 mg Prednisone (Deltasone Tab*) 40 mg PO DAILY [facility] Last Admin: 06/06/17 07:29 Dose: 40 mg Tiotropium [place] (Spiriva Cap.Inh*) 1 cap INH DAILY [facility] Last Admin: 06/06/17 07:50 Dose: 1 cap.inh Vital Signs - 8 hr 06/06/17 06/06/17 06/06/17 07:45 08:20 08:45 Temperature 98.2 F Pulse Rate 62 Respiratory 18 18 Rate Blood Pressure 117/55 (mmHg) O2 Sat by Pulse 85 92 Oximetry 06/06/17 12:15 Temperature 97.7 F Pulse Rate 67 Respiratory 20 Rate Blood Pressure 100/53 (mmHg) O2 Sat by Pulse 88 Oximetry Oxygen Devices in Use Now: Nasal Cannula Result Diagrams: 06/04/17 08:57 06/04/17 08:57 Additional Lab and Data: Laboratory Results - last 24 hr 06/04/17 06/04/17 08:57 08:57 WBC 8.9 RBC 4.58 Hgb 14.6 Hct 43 MCV 95 MCH 32 H MCHC 34 RDW 13 Plt Count 174 MPV 8 Neut % (Auto) 83.7 H Lymph % (Auto) 7.7 L [place] % (Auto) 8.6 H Eos % (Auto) 0 Baso % (Auto) 0 Absolute Neuts (auto) 7.5 Absolute Lymphs (auto) 0.7 L Absolute Monos (auto) 0.8 Absolute Eos (auto) 0 Absolute Basos (auto) 0 Absolute Nucleated RBC 0 Nucleated RBC % 0.1 Sodium 139 Potassium 3.6 Chloride 100 L Carbon Dioxide 32 Anion Gap 7 BUN 27 H Creatinine 0.89 Est GFR ( Amer) 78.1 Est GFR (Non-Af Amer) 60.7 BUN/Creatinine Ratio 30.3 H Glucose 101 H Calcium 9.4 Microbiology and Other Data: Microbiology 06/02/17 17:25 Blood Venous Aerobic Blood Culture - Preliminary No Growth Day 2 06/02/17 17:25 Blood Venous Anaerobic Blood Culture - Preliminary No Growth Day 2 06/02/17 17:45 Blood Venous Aerobic Blood Culture - Preliminary No Growth Day 2 06/02/17 17:45 Blood Venous Anaerobic Blood Culture - Preliminary No Growth Day 2 06/03/17 04:00 Urine Legionella Urinary Antigen - Final Negative Legionella 06/03/17 04:00 Urine Streptococcus pneumoniae Ag Screen - Final Negative S. pneumo Antigen 06/02/17 17:05 Nasal Influenza Types A,B Antigen (CRISTELA) - Final Specimen received for Influenza A/B Molecular testing Assess/Plan/Problems-Billing Assessment: 81 yo PMH CAD, MVR s/p repair, COPD, HTN p/w influenza B and hypoxic respiratory failure w/ bronchspasm. - Patient Problems (1) COPD (chronic obstructive pulmonary disease) Current Visit: Yes Status: Acute Code(s): J44.9 - CHRONIC OBSTRUCTIVE PULMONARY DISEASE, UNSPECIFIED SNOMED Code(s): 17365183 Comment: was only on MEGAN upon admission. continue dulera, spiriva, duo nebs. prednisone 40mg currently ceftriaxone now. Continue azithromycin - today day 08/14 (2) Influenza B Current Visit: Yes Status: Acute Code(s): J10.1 - FLU DUE TO OTH IDENT INFLUENZA VIRUS W OTH RESP MANIFEST SNOMED Code(s): 13221358 Comment: last of tamiflu. day 08/14 (3) CAD (coronary artery disease) Current Visit: Yes Status: Acute Code(s): I25.10 - ATHSCL HEART DISEASE OF [place] CORONARY ARTERY W/O ANG PCTRS SNOMED Code(s): 98537923 Comment: metoprolol 12.5mg BID aspirin 81mg daily atorvastatin 20mg daily. nitro 0.4mg SL prn (4) Falls frequently Current Visit: Yes Status: Acute Code(s): R29.6 - REPEATED FALLS SNOMED Code(s): 528351245 (5) Protein calorie malnutrition Current Visit: Yes Status: Acute Code(s): E46 - UNSPECIFIED PROTEIN-CALORIE MALNUTRITION SNOMED Code(s): 792317684 Status and Disposition: medicine inpatient
--- NOTE | 2017-06-07 10:47 | DS ---
DISCHARGE SUMMARY: DATE OF ADMISSION: 06/02/17 DATE OF DISCHARGE: 06/06/17 ADMITTING AND ATTENDING PROVIDER: Vin Diego MD. PRIMARY CARE PROVIDER: Dr. Milligan. CHIEF COMPLAINT: Breathing hard. PRINCIPAL DIAGNOSES: Influenza B; COPD exacerbation. HISTORY OF PRESENT ILLNESS AND HOSPITAL COURSE: Charline Reyes is an 81-year-old female with past medical history of CAD status post two-vessel CABG and mitral repair 2008, COPD, hypertension, hyperlipidemia, osteoporosis, diverticulitis, independent resident at [facility], who called 911 because she was "breathing hard." She was unable to give a completely clear history in the emergency room but did attest to a cough and then saw Dr. Milligan, her primary care provider and was given cefuroxime 500 mg b.i.d. starting 2 days prior to admission. She was receiving advice to drink lot of fluids and orange juice at [facility] and felt frustrated that she was "not allowed to eat as much food as she wanted." She attested to occasional chills, was constipated, uses walker at baseline. In the emergency room, she was tachypneic to 25, found to have evidence of influenza B on rapid testing, although initially satting 94%, dropped down to 84 % on room air, required 2 L nasal cannula and admitted for hypoxic respiratory failure secondary to influenza B and underlying COPD. She was started on Tamiflu, has received 5 doses in-house, initially continued on the Ceftin but on hospital day #4 and 5 received ceftriaxone and was also given azithromycin. She had a chest x-ray which demonstrated no infiltrates, evidence of hyperinflation and postoperative changes were seen. She was without leukocytosis on admission or throughout hospitalization. She was unable to produce a sputum sample. Her blood cultures have been negative x3 days and urine streptococcus and Legionella urine antigens have been negative. Her lung exam initially quite rhonchorous diffusely, has improved to each day. She was given Solu-Medrol 125 mg in the emergency room and then continued on 40 mg daily and will be discharged on a short taper. She has been given two new medications; Spiriva and albuterol breakthrough inhaler. She was only previously on Advair (had been given Dulera during admission). She still had oxygen requirements and will be discharged with oxygen services through [facility]. This should be re-evaluated as an outpatient if she has continued needs. She has a followup scheduled with Dr. Milligan day after discharge on . DISCHARGE MEDICATIONS: Include: 1. Albuterol HFA inhaler one puff q. 6 hours p.r.n. (new). 2. Aspirin 81 mg p.o. daily. 3. Atorvastatin 20 mg p.o. daily. 4. Celebrex 200 mg p.o. daily. 5. Cholecalciferol 500 units p.o. daily. 6. Advair one puff p.o. b.i.d. 7. [place] 5/325 mg p.o. q. 4 hours p.r.n. 8. Claritin 10 mg p.o. daily. 9. Metoprolol tartrate 12.5 mg p.o. daily. 10. Nitroglycerin 0.4 mg sublingual q. 5 minutes p.r.n. for chest pain. 11. Ibuprofen PM softgel one capsule p.o. daily. 12. Stitzer-3 fatty acid 1000 mg p.o. daily. 13. Prednisone 20 mg tabs to be taken 40 mg for 2 days, then 20 mg x4 days. 14. Spiriva one capsule inhale daily (new). 15. Triamterene 37.5/25 mg p.o. daily. DISCHARGE DIET: Heart healthy, unchanged. ACTIVITY LEVEL: No restrictions. FOLLOWUP: Please follow up with Dr. Milligan, 06/07 at 9:45 a.m. TIME SPENT ON DISCHARGE: Forty-five minutes. [id number]/[facility] #: [id number] MTDD
== END 2017-06-06 16:30 | disposition home or self-care (01) | DRG 193 ==
LOC: ED 16:16 → MED 19:00 → OBSVTOIN 06-03 16:00
PROVIDERS: ADMIT Internal Medicine; ATTEND Internal Medicine
DX: J10.1 Influenza due to other identified influenza virus with other respiratory manifestations (principal); J96.01 Acute respiratory failure with hypoxia; J44.1 Chronic obstructive pulmonary disease with (acute) exacerbation; E46 Unspecified protein-calorie malnutrition; I25.10 Atherosclerotic heart disease of native coronary artery without angina pectoris; I11.9 Hypertensive heart disease without heart failure; E78.5 Hyperlipidemia, unspecified; M81.0 Age-related osteoporosis without current pathological fracture; F03.90 Unspecified dementia, unspecified severity, without behavioral disturbance, psychotic disturbance, mood disturbance, and anxiety; K57.90 Diverticulosis of intestine, part unspecified, without perforation or abscess without bleeding; F32.9 Major depressive disorder, single episode, unspecified; Z66 Do not resuscitate; Z95.1 Presence of aortocoronary bypass graft; Z91.81 History of falling; Z79.1 Long term (current) use of non-steroidal anti-inflammatories (NSAID); Z79.82 Long term (current) use of aspirin; Z79.899 Other long term (current) drug therapy; Z88.1 Allergy status to other antibiotic agents; Z88.5 Allergy status to narcotic agent; Z88.8 Allergy status to other drugs, medicaments and biological substances; Z82.49 Family history of ischemic heart disease and other diseases of the circulatory system; Z87.891 Personal history of nicotine dependence; Z68.20 Body mass index [BMI] 20.0-20.9, adult
CPT/HCPCS: 36415; 71045; 80048; 80053; 81003; 81015; 83605; 83880; 84484; 85025; 85610; 85730; 87040; 87502; 87899; 93005; 94640; 94760; 96374; 99285; A9270-GY; G0378; G8978-GP-CI; G8979-GP-CI; J0696; J1644; J2930; J7512

== ENCOUNTER 2017-06-29 23:26 | Observation (INO) | payer MEDICARE, OTHER ==
[2017-06-30 01:56] LABS: ABS Basophils 0 10^3/ul (0-0.2); ABS Eosinophils 0.1 10^3/ul (0-0.6); ABS Lymphocytes 0.8 10^3/ul (1.0-4.8); ABS Monocytes 0.5 10^3/ul (0-0.8); ABS Neutrophils 3.6 10^3/ul (1.5-7.7); ABS Nucleated RBC 0 10^3/ul; Eosinophil % 2.2 % (0-6); Hematocrit 38 % (35-47); Hemoglobin 12.8 g/dl (12.0-16.0); Lymphocyte % 16.5 % (25-47); Mean Corpuscular HGB Conc 34 g/dl (31-36); Mean Corpuscular Hemoglobin 32 pg (27-31); Mean Corpuscular Volume 96 fL (80-97); Mean Platelet Volume 8 um3 (7.4-10.4); Nucleated Red Blood Cells % 0.1; Platelet Count 150 10^3/ul (150-450); Red Blood Count 3.97 10^6/ul (4.0-5.4); Red Cell Distribution Width 14 % (10.5-15); White Blood Count 5.1 10^3/ul (3.5-10.8)
[2017-06-30 02:10] LABS: INR 0.93 (0.77-1.02)
[2017-06-30 02:13] LABS: EGFR Non-African American 48.1 (>60)
[2017-06-30] MEDS ORDERED: traMADol TAB* 50 MG PO ONE (03:17)
--- NOTE | 2017-06-30 03:40 | ED ---
Jesús Carrillo Thomas, scribed for Paulie Small MD on 06/30/17 at 0247 . Lower Extremity - HPI Summary HPI Summary: The patient is an 81 year old female who woke up from a nightmare tonight and as a result hit her left lower extremity on a bedpost. She has pain, swelling, and discoloration to her left lower extremity. - History of Current Complaint Chief Complaint: EDExtremityLower Stated Complaint: LEG PAIN Time Seen by Provider: 06/30/17 00:14 Hx Obtained From: Patient Mechanism Of Injury: Other - Hit on bedpost Onset of Pain: Immediate Severity Currently: Moderate Pain Intensity: 5 Pain Scale Used: 0-10 Numeric Timing: Constant Location: Is Discrete @ - LLE Associated Signs And Symptoms: Positive: Swelling, Other - Pain, discoloration Aggravating Factor(s): Other - Palpation, movement - Allergies/Home Medications Allergies/Adverse Reactions: Allergies Allergy/AdvReac Type Severity Reaction Status Date / Time EDIE Inhibitors Allergy Unknown Verified 06/29/17 23:49 Reaction Details acetaminophen Allergy Nausea And Verified 06/29/17 23:49 Vomiting amiodarone Allergy Unknown Verified 06/29/17 23:49 Reaction Details codeine Allergy Nausea And Verified 06/29/17 23:49 Vomiting hydrocodone Allergy Nausea And Verified 06/29/17 23:49 Vomiting Iodinated Contrast- Oral and Allergy Swelling Verified 06/29/17 23:49 IV Dye lisinopril Allergy Swelling Verified 06/29/17 23:49 Macrolide Antibiotics Allergy Unknown Verified 06/29/17 23:49 Reaction Details metoprolol Allergy Fatigue Verified 06/29/17 23:49 morphine Allergy Unknown Verified 06/29/17 23:49 Reaction Details oxycodone Allergy Nausea And Verified 06/29/17 23:49 Vomiting pimecrolimus Allergy Unknown Verified 06/29/17 23:49 Reaction Details sirolimus Allergy Unknown Verified 06/29/17 23:49 Reaction Details tacrolimus Allergy Unknown Verified 06/29/17 23:49 Reaction Details tramadol Allergy Swelling Verified 06/29/17 23:49 zolpidem Allergy See Comment Verified 06/29/17 23:49 PMH/Surg Hx/FS Hx/Imm Hx Endocrine/Hematology History: Denies: Hx Anticoagulant Therapy, Hx Diabetes, Hx Thyroid Disease Cardiovascular History: Reports: Hx Hypertension - benign, Other Cardiovascular Problems/Disorders - MITRAL VALVE REPACEMENT Denies: Hx Pacemaker/ICD Respiratory History: Reports: Hx Chronic Obstructive Pulmonary Disease (COPD) Denies: Hx Asthma GI History: Denies: Hx Ulcer History: Denies: Hx Renal Disease Musculoskeletal History: Reports: Hx Osteoporosis Sensory History: Reports: Hx Contacts or Glasses Denies: Hx Hearing Aid Opthamlomology History: Reports: Hx Contacts or Glasses Neurological History: Denies: Hx Dementia, Hx Seizures Psychiatric History: Denies: Hx Substance Abuse - Surgical History Surgery Procedure, Year, and Place: double bypass in 2008, back surgery; gallbladder and appendix - Immunization History Date of Influenza Vaccine: fall 2016 Infectious Disease History: No Infectious Disease History: Denies: Hx Clostridium Difficile, Hx Hepatitis, Hx Human Immunodeficiency Virus (HIV), Hx of Known/Suspected MRSA, Hx Shingles, Hx Tuberculosis, Hx Known/ Suspected VRE, Hx Known/Suspected VRSA, History Other Infectious Disease, Traveled Outside the [place] in Last 30 Days - Family History Known Family History: Positive: Cardiac Disease - Social History Alcohol Use: Daily Alcohol Amount: WINE WITH DINNER Substance Use Type: Reports: None Smoking Status (MU): Former Smoker Type: Cigarettes Have You Smoked in the Last Year: No Review of Systems Negative: Fever Positive: Other - Pain, swelling, and discoloration to LLE All Other Systems Reviewed And Are Negative: Yes Physical Exam - Summary Physical Exam Summary: VITAL SIGNS: Reviewed. GENERAL: Patient is a well-developed and nourished female who is lying comfortable in the stretcher. Patient is not in any acute respiratory distress. HEAD AND FACE: No signs of trauma. No ecchymosis, hematomas or skull depressions. No sinus tenderness. EYES: PERRLA, EOMI x 2, No injected conjunctiva, no nystagmus. EARS: Hearing grossly intact. Ear canals and tympanic membranes are within normal limits. MOUTH: Oropharynx within normal limits. NECK: Supple, trachea is midline, no adenopathy, no JVD, no carotid bruit, no c- spine tenderness, neck with full ROM. CHEST: Symmetric, no tenderness at palpation LUNGS: Clear to auscultation bilaterally. No wheezing or crackles. CVS: Regular rate and rhythm, S1 and S2 present, no murmurs or gallops appreciated. ABDOMEN: Soft, non-tender. No signs of distention. No rebound no guarding, and no masses palpated. Bowel sounds are normal. EXTREMITIES: She has a large subcutaneous hematoma over her left leg. It is mainly in the later and posterior aspects. She has tenderness over her distal left leg. NEURO: Alert and oriented x 3. No acute neurological deficits. Speech is normal and follows commands. SKIN: Dry and warm Triage Information Reviewed: Yes Vital Signs On Initial Exam: Initial Vitals Temp Pulse Resp BP Pulse Ox 98.4 F 65 18 120/59 96 06/29/17 23:30 06/29/17 23:30 06/29/17 23:30 06/29/17 23:30 06/29/17 23:30 Vital Signs Reviewed: Yes Diagnostics - Vital Signs Vital Signs Temp Pulse Resp BP Pulse Ox 06/30/17 01:07 117 89 06/30/17 00:30 52 116/43 98 06/30/17 00:01 71 114/60 81 06/30/17 00:00 65 90 06/29/17 23:44 65 98 06/29/17 23:37 65 96 06/29/17 23:35 120/59 06/29/17 23:30 98.4 F 65 18 120/59 96 - Laboratory Lab Results: Lab Results 06/30/17 06/30/17 06/30/17 Range/Units 01:45 01:45 01:45 WBC 5.1 (3.5-10.8) 10^3/ul RBC 3.97 L (4.0-5.4) 10^6/ul Hgb 12.8 (12.0-16.0) g/dl Hct 38 (35-47) % MCV 96 (80-97) fL MCH 32 H (27-31) pg MCHC 34 (31-36) g/dl RDW 14 (10.5-15) % Plt Count 150 (150-450) 10^3/ul MPV 8 (7.4-10.4) um3 Neut % (Auto) 70.1 (38-83) % Lymph % (Auto) 16.5 L (25-47) % [place] % (Auto) 10.4 H (0-7) % Eos % (Auto) 2.2 (0-6) % Baso % (Auto) 0.8 (0-2) % Absolute Neuts (auto) 3.6 (1.5-7.7) 10^3/ul Absolute Lymphs (auto) 0.8 L (1.0-4.8) 10^3/ul Absolute Monos (auto) 0.5 (0-0.8) 10^3/ul Absolute Eos (auto) 0.1 (0-0.6) 10^3/ul Absolute Basos (auto) 0 (0-0.2) 10^3/ul Absolute Nucleated RBC 0 10^3/ul Nucleated RBC % 0.1 INR (Anticoag Therapy) (0.77-1.02) APTT (26.0-36.3) seconds Sodium 141 (133-145) mmol/L Potassium 3.8 (3.5-5.0) mmol/L Chloride 105 (101-111) mmol/L Carbon Dioxide 31 (22-32) mmol/L Anion Gap 5 (2-11) mmol/L BUN 26 H (6-24) mg/dL Creatinine 1.09 H (0.51-0.95) mg/dL Est GFR ( Amer) 61.8 (>60) Est GFR (Non-Af Amer) 48.1 (>60) BUN/Creatinine Ratio 23.9 H (8-20) Glucose 110 H (70-100) mg/dL Lactic Acid 0.6 (0.5-2.0) mmol/L Calcium 9.3 (8.6-10.3) mg/dL Total Bilirubin 0.60 (0.2-1.0) mg/dL AST 14 (13-39) U/L ALT 9 (7-52) U/L Alkaline Phosphatase 56 (34-104) U/L Total Creatine Kinase 31 (10-223) U/L Total Protein 5.7 L (6.4-8.9) g/dL Albumin 3.5 (3.2-5.2) g/dL Globulin 2.2 (2-4) g/dL Albumin/Globulin Ratio 1.6 (1-3) Blood Type Antibody Screen 06/30/17 06/30/17 Range/Units 01:45 01:45 WBC (3.5-10.8) 10^3/ul RBC (4.0-5.4) 10^6/ul Hgb (12.0-16.0) g/dl Hct (35-47) % MCV (80-97) fL MCH (27-31) pg MCHC (31-36) g/dl RDW (10.5-15) % Plt Count (150-450) 10^3/ul MPV (7.4-10.4) um3 Neut % (Auto) (38-83) % Lymph % (Auto) (25-47) % [place] % (Auto) (0-7) % Eos % (Auto) (0-6) % Baso % (Auto) (0-2) % Absolute Neuts (auto) (1.5-7.7) 10^3/ul Absolute Lymphs (auto) (1.0-4.8) 10^3/ul Absolute Monos (auto) (0-0.8) 10^3/ul Absolute Eos (auto) (0-0.6) 10^3/ul Absolute Basos (auto) (0-0.2) 10^3/ul Absolute Nucleated RBC 10^3/ul Nucleated RBC % INR (Anticoag Therapy) 0.93 (0.77-1.02) APTT 32.7 (26.0-36.3) seconds Sodium (133-145) mmol/L Potassium (3.5-5.0) mmol/L Chloride (101-111) mmol/L Carbon Dioxide (22-32) mmol/L Anion Gap (2-11) mmol/L BUN (6-24) mg/dL Creatinine (0.51-0.95) mg/dL Est GFR ( Amer) (>60) Est GFR (Non-Af Amer) (>60) BUN/Creatinine Ratio (8-20) Glucose (70-100) mg/dL Lactic Acid (0.5-2.0) mmol/L Calcium (8.6-10.3) mg/dL Total Bilirubin (0.2-1.0) mg/dL AST (13-39) U/L ALT (7-52) U/L Alkaline Phosphatase (34-104) U/L Total Creatine Kinase (10-223) U/L Total Protein (6.4-8.9) g/dL Albumin (3.2-5.2) g/dL Globulin (2-4) g/dL Albumin/Globulin Ratio (1-3) Blood Type O Positive Antibody Screen Negative Result Diagrams: 03/21/18 01:45 06/30/17 01:45 Lab Statement: Any lab studies that have been ordered have been reviewed, and results considered in the medical decision making process. - Radiology Ankle XR Xray Interpretation: No Acute Changes - No fracture. Pending official report. Radiology Interpretation Completed By: ED Physician, Radiologist Tib-Fib XR Xray Interpretation: No Acute Changes - No fracture. Pending official report. Radiology Interpretation Completed By: ED Physician Re-Evaluation - Re-Evaluation First Eval Re-Evaluation Time: 03:29 Comment: Discussed results. Patient will be admitted. Lower Extremity Course/Dx - Course Assessment/Plan: The patient is an 81 year old female who woke up from a nightmare tonight and as a result hit her left lower extremity on a bedpost. She has pain, swelling, and discoloration to her left lower extremity. Bloodwork was obtained. Ankle and Tib-Fib XRs are negative for fracture. The patient will be admitted to Dr. Joshua. - Diagnoses Provider Diagnoses: Hematoma of left lower extremity - Physician Notifications Discussed Care Of Patient With: Lisa Joshua Time Discussed With Above Provider: 03:31 Instructed by Provider To: Admit As Inpatient Discharge - Sign-Out/Discharge Documenting (check all that apply): Discharge - Discharge Plan Condition: Stable Disposition: ADMITTED TO [facility] Referrals: Lucien Milligan MD [Primary Care Provider] - The documentation as recorded by the Jesús lala Thomas accurately reflects the service I personally performed and the decisions made by me, Paulie Small MD.
[2017-06-30] MEDS ORDERED: Senna TAB PO PRN (04:04)
[2017-06-30] MEDS ORDERED: Docusate CAP* 100 MG PO PRN (04:04)
[2017-06-30] MEDS ORDERED: Ondansetron INJ* 2 MG/ML VIAL IV PRN (04:04)
[2017-06-30] MEDS ORDERED: Acetaminophen TAB* 325 MG PO PRN (04:04)
[2017-06-30] MEDS ORDERED: Al Hydrox/Mg Hydrox/Simet LIQ* 30 ML UDC PO PRN (04:04)
[2017-06-30] MEDS ORDERED: Albuterol HFA INHALER* 8 gm MDI INH PRN (04:07)
[2017-06-30] MEDS: oxyCODONE TAB* 5 MG TAB PO PRN ×2 (04:54→20:27)
[2017-06-30] MEDS ORDERED: Spiriva Inhaler DEVICE* 1 EACH DEVICE INH SCH (05:00)
[2017-06-30] MEDS ORDERED: Spiriva Inhaler DEVICE* 1 EACH DEVICE SCH (05:00)
[2017-06-30] MEDS: Heparin VIAL(*) 5000 UNITS/ML VIAL (FIVE THOUSAND) SUBCUT SCH ×2 (06:29→13:40)
[2017-06-30 06:51] LABS: ABS Basophils 0 10^3/ul (0-0.2); ABS Eosinophils 0.1 10^3/ul (0-0.6); ABS Lymphocytes 0.8 10^3/ul (1.0-4.8); ABS Monocytes 0.6 10^3/ul (0-0.8); ABS Neutrophils 3.1 10^3/ul (1.5-7.7); ABS Nucleated RBC 0 10^3/ul; Eosinophil % 2.7 % (0-6); Hematocrit 37 % (35-47); Hemoglobin 12.4 g/dl (12.0-16.0); Mean Corpuscular HGB Conc 34 g/dl (31-36); Mean Corpuscular Hemoglobin 33 pg (27-31); Mean Corpuscular Volume 97 fL (80-97); Mean Platelet Volume 8 um3 (7.4-10.4); Nucleated Red Blood Cells % 0.1; Platelet Count 137 10^3/ul (150-450); Red Cell Distribution Width 14 % (10.5-15); White Blood Count 4.7 10^3/ul (3.5-10.8)
--- NOTE | 2017-06-30 07:48 | RAD ---
INDICATION: Left ankle injury. TECHNIQUE: 3 views of the left ankle were obtained. FINDINGS: Soft tissue swelling is noted along the anterolateral aspect of the ankle. No fracture is seen. Joint spaces appear maintained. IMPRESSION: SOFT TISSUE SWELLING, NO FRACTURE IS SEEN.
--- NOTE | 2017-06-30 07:50 | RAD ---
INDICATION: Left lower leg injury. TECHNIQUE: 2 views of the left lower leg were obtained. FINDINGS: There is diffuse soft tissue swelling. The bones are normal. No fracture is seen. IMPRESSION: SOFT TISSUE SWELLING, NO FRACTURE IS SEEN. IF THE PATIENT'S SYMPTOMS PERSIST, RECOMMEND FOLLOW-UP IMAGING.
--- NOTE | 2017-06-30 08:41 | HP ---
CC: Dr. Milligan * DATE OF ADMISSION: 06/30/17. TIME OF EVALUATION: 0400. PRIMARY CARE PROVIDER: Dr. Milligan. CHIEF COMPLAINT: Fall, with a leg injury. HISTORY OF PRESENT ILLNESS: This is an 81-year-old female with past medical history of coronary artery disease, COPD, who presented from [facility] after having a fall. Patient states she has a history of sleep walking. She believes she was sleep walking. She is not clear exactly what happened, but she believes she banged her left leg on a wooden post and dragged herself to get help and that's when they found her and EMS was called. In the emergency room, patient was noted to have a significant lower extremity hematoma and no bony abnormality. She was referred to the hospital service after she failed road testing. Patient denies any chest pain or shortness of breath. She has diarrhea off and on. No fevers or chills. No urinary symptoms. She denies any recent changes in her medication, but she is not entirely clear. She was just admitted recently for COPD exacerbation. Otherwise, remaining review of systems is negative. PAST MEDICAL HISTORY: 1. Hypertension. 2. CAD, status post bypass. 3. History of mitral valve repair. 4. Depression. 5. History of frequent falls. 6. COPD, on room air. 7. Osteoporosis. 8. History of atrial fibrillation. 9. History of diverticulitis. 10. Arthritis. MEDICATIONS: Based on her discharge summary from May 2017: 1. Albuterol inhaler q.6 hours as needed. 2. Aspirin 81 mg p.o. daily. 3. Atorvastatin 20 mg p.o. daily. 4. Celebrex 200 mg p.o. daily. 5. Cholecalciferol 500 units p.o. daily. 6. Advair one puff b.i.d. 7. Narco 5/325 mg q.4 hours as needed. 8. Claritin 10 mg p.o. daily. 9. Metoprolol tartrate 12.5 mg p.o. daily. 10. Nitroglycerin 0.4 mg sublingual q.5 minutes as needed for chest pain. 11. Ibuprofen one capsule p.o. daily. 12. [place]-3 fatty acid 1000 mg p.o. daily. 13. Spiriva. 14. Triamterene 37.5/25 mg p.o. daily. ALLERGIES: EDIE inhibitors, Tylenol, amiodarone, codeine, hydrocodone, contrast , lisinopril, macrolides, metoprolol, morphine, oxycodone, sirolimus tacrolimus , tramadol, and zolpidem. FAMILY HISTORY: Reviewed and noncontributory. SOCIAL HISTORY: The patient, as mentioned, lives in [facility]. She ambulates with a walker. She quit smoking 9 years ago with a [id number]-cisw history. She drinks one glass of wine per day. She states her daughter, Ellie, is her healthcare proxy. She has confirmed she is a DNR and DNI. I do not see MOLST form on file. REVIEW OF SYSTEMS: A 14-point review of systems are as mentioned in the HPI, otherwise negative. PHYSICAL EXAMINATION GENERAL: No acute distress, frail elderly lady. VITAL SIGNS: Temp 98.4, pulse rate ranges from 60 to 40, respiratory rate 18, oxygen saturation 97% on room air, blood pressure 101/67. HEENT: Head normocephalic. Pupils equal and reactive. Anicteric. Oropharynx , mucous membranes are moist. NECK: Supple. No adenopathy. CARDIAC: Regular rate and rhythm. Positive ectopic beats. Soft systolic murmur heard throughout. RESPIRATORY: Poor aeration. Prolonged expiatory phase. No increased work of breathing. No wheezes, rhonchi, or rales. ABDOMEN: Soft, nontender, nondistended. EXTREMITIES: The patient with a notable left lower extremity ecchymosis, hematoma with a blood blister on the lateral left lower extremity. Her extremity is warm, +1 DPs. She is able to move it. Sensation intact. NEUROLOGIC: Alert and oriented x3. No gross focal neurologic deficits. LABORATORY DATA: White count 5.1, hemoglobin 12.8, hematocrit 38, platelets 150. INR 0.93. Sodium 141, potassium 3.8, chloride 105, bicarb 31, BUN 26, creatinine 1.09. RADIOGRAPHIC IMAGING: Per wet read of her ankle x-ray and lower extremity x-ray : No bony deformity. ASSESSMENT AND PLAN: This is an 81-year-old female with a past medical history of CAD and COPD, who presents to the emergency room from [facility] after having a fall, suffering a significant left lower extremity hematoma, inability to ambulate. 1. Fall. Assessment: It appears patient was sleep walking, which she is known to do, and suffered a fall. She has significant lower extremity hematoma. No bony abnormalities. Plan: We will admit her for pain control, have PT evaluate her in the morning for a safe disposition plan. We will discontinue her aspirin, her Celebrex, and her ibuprofen for now in the setting of quite a significant hematoma, and repeat her CBC in the morning to follow her H&H. 2. Hypertension. Her blood pressures have been soft here. It could be that she had a vasovagal event that contributed to her fall; it's unclear. We will stop her triamterene. Continue her on low-dose metoprolol, but may consider discontinuing this as well. CHRONIC MEDICAL PROBLEMS: 1. COPD. Continue albuterol and her Advair. 2. Hyperlipidemia. Continue her Atorvastatin. 3. Hypertension. As mentioned above. 4. FEN. We will place her on a regular diet. 5. DVT prophylaxis. The patient scores high risk. Place her on heparin subcu t.i.d. 6. Code status. She is a DNR/DNI. We will see if this is on file; otherwise will fill out a MOLST. PATIENT TIME: Greater than 50 minutes were spent doing the history and physical , more than half the time was spent in direct patient contact. [id number]/CPS #: [id number] SEAN
[2017-06-30] MEDS: Metoprolol Tartrate TAB* 25 MG PO SCH (08:44)
[2017-06-30] MEDS: Mometasone/Formoter 200/5 MDI INH SCH ×2 (08:51→19:29)
[2017-06-30] MEDS: Tiotropium CAP.INH* CAP.INH/18 MCG (USE ORDER SET !) INH SCH (08:51)
--- NOTE | 2017-06-30 09:51 | PN ---
Subjective Date of Service: 06/30/17 Interval History: Patient seen and examined at bedside. Denies significant pain to the leg; concerned about returning home and ambulating. We discussed medications to avoid. Patient would feel comfortable staying overnight and having supervision before returning to independent living, as she is concerned for falls or increased pain. Family History: Unchanged from Admission Social History: Unchanged from Admission Past Medical History: Unchanged from Admission Objective Active Medications: Acetaminophen (Tylenol Tab*) 650 mg PO Q4H PRN PRN Reason: FEVER/PAIN Al Hydrox/Mg Hydrox/Simethicone (Maalox Plus*) 30 ml PO Q6H PRN PRN Reason: INDIGESTION Albuterol (Ventolin Hfa Inhaler*) 2 puff INH Q4H PRN PRN Reason: SOB/WHEEZING Atorvastatin Calcium (Lipitor*) 20 mg PO 1700 [facility] Device (Tiotropium Inhaler Device*) 1 each .SEE ORDER .USE w/ SPIRIVA CAPS [facility] Docusate Sodium (Colace Cap*) 100 mg PO BID PRN PRN Reason: CONSTIPATION Heparin Sodium (Porcine) (Heparin Vial(*)) 5,000 units SUBCUT Q8HR [facility] Last Admin: 06/30/17 06:29 Dose: 5,000 units Metoprolol Tartrate (Lopressor Tab*) 12.5 mg PO DAILY [facility] Last Admin: 06/30/17 08:44 Dose: 12.5 mg Mometasone Furoate/Formoterol Fumar (Dulera 200/5 Mdi*) 2 puff INH BID [facility] Last Admin: 06/30/17 08:51 Dose: 2 puff Ondansetron HCl (Zofran Inj*) 4 mg IV Q4H PRN PRN Reason: NAUSEA/VOMITING Oxycodone HCl (Roxycodone Tab*) 5 mg PO Q6H PRN PRN Reason: PAIN Last Admin: 06/30/17 04:54 Dose: 5 mg Senna (Senokot Tab*) 1 tab PO BID PRN PRN Reason: CONSTIPATION Tiotropium [place] (Spiriva Cap.Inh*) 1 cap INH DAILY [facility] Last Admin: 06/30/17 08:51 Dose: 1 cap Vital Signs - 8 hr 06/30/17 06/30/17 06/30/17 04:05 04:30 04:54 Temperature Pulse Rate 65 71 Respiratory 16 Rate Blood Pressure 119/53 122/95 (mmHg) O2 Sat by Pulse 95 92 Oximetry 06/30/17 06/30/17 06/30/17 05:00 05:30 05:32 Temperature 98.2 F Pulse Rate 99 67 67 Respiratory 16 Rate Blood Pressure 121/97 86/54 96/41 (mmHg) O2 Sat by Pulse 84 95 94 Oximetry 06/30/17 06/30/17 06/30/17 05:45 05:59 06:22 Temperature 98.2 F 97.3 F 97.3 F Pulse Rate 66 60 60 Respiratory 16 18 18 Rate Blood Pressure 121/97 135/62 135/62 (mmHg) O2 Sat by Pulse 97 96 96 Oximetry 06/30/17 06/30/17 06/30/17 07:42 08:13 08:40 Temperature 97.5 F Pulse Rate 58 72 Respiratory 18 Rate Blood Pressure (mmHg) O2 Sat by Pulse 96 Oximetry 06/30/17 06/30/17 08:44 09:13 Temperature Pulse Rate 65 70 Respiratory 14 Rate Blood Pressure 107/59 (mmHg) O2 Sat by Pulse 96 Oximetry Oxygen Devices in Use Now: None Appearance: Older female, lying in bed, NAD Eyes: PERRLA Ears/Nose/Mouth/Throat: Clear Oropharnyx, Mucous Membranes Moist Neck: NL Appearance and Movements; NL JVP Respiratory: Symmetrical Chest Expansion and Respiratory Effort, - - diminished throughout Cardiovascular: RRR - systolic murmur Abdominal: NL Sounds; No Tenderness; No Distention Extremities: No Clubbing, Cyanosis - chronic changes to BLE, LLE with significant ecchymosis and left lateral hematoma Neurological: Alert and Oriented x 3, NL Muscle Strength and Tone Lines/Tubes/Other Access: Clean, Dry and Intact Peripheral IV Nutrition: Taking PO's Result Diagrams: 06/30/17 06:30 06/30/17 01:45 Additional Lab and Data: Lab Results 06/30/17 06/30/17 06/30/17 Range/Units 01:45 01:45 01:45 WBC 5.1 (3.5-10.8) 10^3/ul RBC 3.97 L (4.0-5.4) 10^6/ul Hgb 12.8 (12.0-16.0) g/dl Hct 38 (35-47) % MCV 96 (80-97) fL MCH 32 H (27-31) pg MCHC 34 (31-36) g/dl RDW 14 (10.5-15) % Plt Count 150 (150-450) 10^3/ul MPV 8 (7.4-10.4) um3 Neut % (Auto) 70.1 (38-83) % Lymph % (Auto) 16.5 L (25-47) % [place] % (Auto) 10.4 H (0-7) % Eos % (Auto) 2.2 (0-6) % Baso % (Auto) 0.8 (0-2) % Absolute Neuts (auto) 3.6 (1.5-7.7) 10^3/ul Absolute Lymphs (auto) 0.8 L (1.0-4.8) 10^3/ul Absolute Monos (auto) 0.5 (0-0.8) 10^3/ul Absolute Eos (auto) 0.1 (0-0.6) 10^3/ul Absolute Basos (auto) 0 (0-0.2) 10^3/ul Absolute Nucleated RBC 0 10^3/ul Nucleated RBC % 0.1 INR (Anticoag Therapy) (0.77-1.02) APTT (26.0-36.3) seconds Sodium 141 (133-145) mmol/L Potassium 3.8 (3.5-5.0) mmol/L Chloride 105 (101-111) mmol/L Carbon Dioxide 31 (22-32) mmol/L Anion Gap 5 (2-11) mmol/L BUN 26 H (6-24) mg/dL Creatinine 1.09 H (0.51-0.95) mg/dL Est GFR ( Amer) 61.8 (>60) Est GFR (Non-Af Amer) 48.1 (>60) BUN/Creatinine Ratio 23.9 H (8-20) Glucose 110 H (70-100) mg/dL Lactic Acid 0.6 (0.5-2.0) mmol/L Calcium 9.3 (8.6-10.3) mg/dL Total Bilirubin 0.60 (0.2-1.0) mg/dL AST 14 (13-39) U/L ALT 9 (7-52) U/L Alkaline Phosphatase 56 (34-104) U/L Total Creatine Kinase 31 (10-223) U/L Total Protein 5.7 L (6.4-8.9) g/dL Albumin 3.5 (3.2-5.2) g/dL Globulin 2.2 (2-4) g/dL Albumin/Globulin Ratio 1.6 (1-3) Blood Type Antibody Screen 06/30/17 06/30/17 Range/Units 01:45 01:45 WBC (3.5-10.8) 10^3/ul RBC (4.0-5.4) 10^6/ul Hgb (12.0-16.0) g/dl Hct (35-47) % MCV (80-97) fL MCH (27-31) pg MCHC (31-36) g/dl RDW (10.5-15) % Plt Count (150-450) 10^3/ul MPV (7.4-10.4) um3 Neut % (Auto) (38-83) % Lymph % (Auto) (25-47) % [place] % (Auto) (0-7) % Eos % (Auto) (0-6) % Baso % (Auto) (0-2) % Absolute Neuts (auto) (1.5-7.7) 10^3/ul Absolute Lymphs (auto) (1.0-4.8) 10^3/ul Absolute Monos (auto) (0-0.8) 10^3/ul Absolute Eos (auto) (0-0.6) 10^3/ul Absolute Basos (auto) (0-0.2) 10^3/ul Absolute Nucleated RBC 10^3/ul Nucleated RBC % INR (Anticoag Therapy) 0.93 (0.77-1.02) APTT 32.7 (26.0-36.3) seconds Sodium (133-145) mmol/L Potassium (3.5-5.0) mmol/L Chloride (101-111) mmol/L Carbon Dioxide (22-32) mmol/L Anion Gap (2-11) mmol/L BUN (6-24) mg/dL Creatinine (0.51-0.95) mg/dL Est GFR ( Amer) (>60) Est GFR (Non-Af Amer) (>60) BUN/Creatinine Ratio (8-20) Glucose (70-100) mg/dL Lactic Acid (0.5-2.0) mmol/L Calcium (8.6-10.3) mg/dL Total Bilirubin (0.2-1.0) mg/dL AST (13-39) U/L ALT (7-52) U/L Alkaline Phosphatase (34-104) U/L Total Creatine Kinase (10-223) U/L Total Protein (6.4-8.9) g/dL Albumin (3.2-5.2) g/dL Globulin (2-4) g/dL Albumin/Globulin Ratio (1-3) Blood Type O Positive Antibody Screen Negative Microbiology and Other Data: Microbiology 06/30/17 06:40 Nasal Screen MRSA (PCR)(CRISTELA) - Final Nasal Mrsa Not Detected Assess/Plan/Problems-Billing Assessment: Ms. Reyes is an 81 yo female with a PMH significant for CAD and COPD who presented to the ED on 06/29 after a fall with subsequent LLE hematoma. - Patient Problems (1) Traumatic hematoma of left lower leg Code(s): S80.12XA - CONTUSION OF LEFT LOWER LEG, INITIAL ENCOUNTER Comment: No bony abnormalities Pain better controlled at this time Continue physical therapy and use of walker Continue to hold ASA, ibuprofen, celecoxib in the presence of acute hematoma (2) Hypertension Code(s): I10 - ESSENTIAL (PRIMARY) HYPERTENSION Comment: Currently normotensive and, at times, hypotensive Continue to hold triamterene Continue low dose metoprolol (3) Atrial fibrillation Code(s): I48.91 - UNSPECIFIED ATRIAL FIBRILLATION Comment: Likely paroxysmal, as she sounds as if she's in SR at this time but was previously noted to be irregular by nursing. Continue metoprolol. No anticoagulation secondary to frequent falls. ASA held secondary to acute hematoma. (4) CAD (coronary artery disease) Status: Chronic Code(s): I25.10 - ATHSCL HEART DISEASE OF [place] CORONARY ARTERY W/O ANG PCTRS Comment: Continue metoprolol, atorvastatin, nitro 0.4mg SL prn Hold ASA with acute hematoma (5) COPD (chronic obstructive pulmonary disease) Code(s): J44.9 - CHRONIC OBSTRUCTIVE PULMONARY DISEASE, UNSPECIFIED Comment: Stable, not in acute exacerbation Continue Dulera, Spiriva (6) Falls frequently Code(s): R29.6 - REPEATED FALLS (7) DVT prophylaxis Comment: Encourage ambulation Will hold heparin SQ as hematoma is signifcantly large in size Status and Disposition: OBV admit. Anticipate potential dc to home tomorrow.
[2017-06-30] MEDS ORDERED: Atorvastatin* 20 MG TAB PO SCH (17:00)
[2017-07-01] MEDS: Tiotropium CAP.INH* CAP.INH/18 MCG (USE ORDER SET !) INH SCH (08:09)
[2017-07-01] MEDS: Mometasone/Formoter 200/5 MDI INH SCH (08:09)
[2017-07-01] MEDS: Metoprolol Tartrate TAB* 25 MG PO SCH (08:54)
[2017-07-01] MEDS: oxyCODONE TAB* 5 MG TAB PO PRN (08:57)
--- NOTE | 2017-07-01 10:57 | PN ---
Subjective Date of Service: 07/01/17 Interval History: Ms. Reyes states that she is feeling well and is ready for discharge. Family History: Unchanged from Admission Social History: Unchanged from Admission Past Medical History: Unchanged from Admission Objective Active Medications: Acetaminophen (Tylenol Tab*) 650 mg PO Q4H PRN Al Hydrox/Mg Hydrox/Simethicone (Maalox Plus*) 30 ml PO Q6H PRN Albuterol (Ventolin Hfa Inhaler*) 2 puff INH Q4H PRN Atorvastatin Calcium (Lipitor*) 20 mg PO 1700 [facility] Device (Tiotropium Inhaler Device*) 1 each .SEE ORDER .USE w/ SPIRIVA CAPS [facility] Docusate Sodium (Colace Cap*) 100 mg PO BID PRN Metoprolol Tartrate (Lopressor Tab*) 12.5 mg PO DAILY [facility] Mometasone Furoate/Formoterol Fumar (Dulera 200/5 Mdi*) 2 puff INH BID [facility] Ondansetron HCl (Zofran Inj*) 4 mg IV Q4H PRN Oxycodone HCl (Roxycodone Tab*) 5 mg PO Q6H PRN Senna (Senokot Tab*) 1 tab PO BID PRN Tiotropium [place] (Spiriva Cap.Inh*) 1 cap INH DAILY [facility] Vital Signs: Temp Pulse Resp BP Pulse Ox 98.1 F 72 16 120/48 92 07/01/17 03:06 07/01/17 08:55 07/01/17 08:57 07/01/17 08:55 07/01/17 08:11 Oxygen Devices in Use Now: None Appearance: Elderly female sitting in chair in NAD Eyes: No Scleral Icterus Ears/Nose/Mouth/Throat: Mucous Membranes Moist Neck: NL Appearance and Movements; NL JVP Respiratory: Symmetrical Chest Expansion and Respiratory Effort, Clear to Auscultation Cardiovascular: NL Sounds; No Murmurs; No JVD Abdominal: NL Sounds; No Tenderness; No Distention Extremities: - - Left lower extremity with large hematoma from mid calf to ankle Skin: No Rash or Ulcers Neurological: Alert and Oriented x 3, NL Muscle Strength and Tone Nutrition: Taking PO's Result Diagrams: 06/30/17 06:30 06/30/17 01:45 Additional Lab and Data: Vital Signs: Temp Pulse Resp BP Pulse Ox 98.1 F 72 16 120/48 92 07/01/17 03:06 07/01/17 08:55 07/01/17 08:57 07/01/17 08:55 07/01/17 08:11 Microbiology and Other Data: . Assess/Plan/Problems-Billing Assessment: Ms. Reyes is an 81 yo female with a PMH significant for CAD and COPD who presented to the ED on 06/29 after a fall with subsequent LLE hematoma. - Patient Problems (1) Traumatic hematoma of left lower leg Comment: - Pain well controlled, PT states she is ambulating independently with walker. - No bony abnormalities - Continue to hold ASA, ibuprofen, celecoxib in the presence of acute hematoma (2) Irregular heart beat Comment: - Per nursing staff, not caught on EKG. - No indication for anticoagulation as afib not confirmed. (3) Hypertension Comment: - SBP 80-120s. - Continue metoprolol, hold triamterine/hctz until follow up with PCP. (4) CAD (coronary artery disease) Comment: - Continue metoprolol, atorvastatin, nitro 0.4mg SL prn. - Hold ASA with acute hematoma. (5) COPD (chronic obstructive pulmonary disease) Comment: - Stable, not in acute exacerbation - Continue Dulera, Spiriva (6) DVT prophylaxis Comment: - SCDs only. Status and Disposition: OBV admit. Discharge to home.
[2017-07-01 11:35] VITALS: BP 102/57
--- NOTE | 2017-07-02 01:32 | DS ---
CC: Dr. Lucien Milligan * [facility] MEDICINE DISCHARGE SUMMARY: DATE OF ADMISSION: 06/30/17 DATE OF DISCHARGE: 07/01/17 PRIMARY CARE PHYSICIAN: Dr. Milligan. ATTENDING PHYSICIAN: Dr. Vin Diego * (dictation provided by Cindy Whitlock NP). PRIMARY DIAGNOSES: 1. Fall. 2. Left lower extremity hematoma. SECONDARY DIAGNOSES: 1. Hypertension. 2. Coronary artery disease, status post bypass. 3. History of mitral valve repair. 4. Depression. 5. History of frequent falls. 6. Chronic obstructive pulmonary disease, on room air. 7. Osteoporosis. 8. History of atrial fibrillation. 9. History of diverticulitis. 10. Arthritis. MEDICATIONS: At the time of discharge are: 1. Spiriva 1 cap inhaled daily. 2. [place]-3 fatty acid 1000 mg p.o. daily. 3. Nitroglycerin 0.4 mg sublingually q.5 minutes p.r.n. 4. Metoprolol tartrate 12.5 mg p.o. daily. 5. Loratadine 10 mg p.o. daily p.r.n. 6. Hydrocodone with acetaminophen 5/325 one tab p.o. q.4 hours p.r.n. 7. Advair 250/50 one puff p.o. b.i.d. p.r.n. 8. Vitamin D3 5000 units p.o. daily. 9. Atorvastatin 20 mg p.o. daily. 10. Albuterol inhaler 1 puff inhaled q.6 hours p.r.n. The patient has been instructed to hold aspirin, Celebrex, ibuprofen, and triamterene/hydrochlorothiazide until followup with primary care physician. HOSPITAL COURSE: Ms. Reyes is an 81-year-old female, resident of [place] with a past medical history of coronary artery disease, COPD, and frequent falls, who presented to the hospital on 06/30/17 after a fall at home. Please see the dictated H and P from Dr. Lisa Joshua for complete details. In brief, the patient reported that she was sleep walking (a chronic issue for her) and believed that she banged her leg on a wooden post. She called EMS and was brought to the emergency room where she was noted to have a significant lower extremity hematoma. Ankle x-ray was read as follows: Soft tissue swelling, no fractures seen. Lower extremity x-ray is read as follows: Soft tissue swelling , no fractures seen. Ms. Reyes was observed in the hospital overnight for pain control and for evaluation by Physical Therapy for safety with ambulation. She has had good pain control with oxycodone and does have hydrocodone available at home. We have held her aspirin, celecoxib, and ibuprofen secondary to concern for increased bleeding into significant hematoma to her left calf. We have also held her triamterene and hydrochlorothiazide due to the fact that her blood pressure was running systolically about 90 to 110. The patient was seen in consultation by Physical Therapy and they deemed her to be independent with her walker and at baseline. Ms. Reyes is medically stable for discharge to home. She has no anemia. Her hemoglobin is 12.4, hematocrit is 37. Her blood pressure is 120/48 off her triamterene/hydrochlorothiazide. Ms. Reyes is medically stable for discharge to home to follow up closely with Dr. Milligan. DISPOSITION: Home. DIET: Low-salt. ACTIVITY: As tolerated. FOLLOWUP PLANS: Please follow up with Dr. Milligan regarding resumption of aspirin, ibuprofen, and celecoxib as well as triamterene/hydrochlorothiazide as indicated based on clinical course. TIME SPENT: Approximately 60 minutes were spent on the discharge of this patient, more than half that time spent with the patient at the bedside reviewing the events leading up to this hospitalization, performing the physical examination, and reviewing the plan of care. CINDY WHITLOCK NP [id number]/CPS #: [id number] SEAN
== END 2017-07-01 13:45 | disposition home or self-care (01) ==
LOC: ED 23:26 → MED 06-30 04:04
PROVIDERS: ADMIT Pediatrics; ATTEND Internal Medicine
DX: S80.12XA Contusion of left lower leg, initial encounter (principal); W18.30XA Fall on same level, unspecified, initial encounter; Y92.009 Unspecified place in unspecified non-institutional (private) residence as the place of occurrence of the external cause; I25.10 Atherosclerotic heart disease of native coronary artery without angina pectoris; Z95.1 Presence of aortocoronary bypass graft; F32.9 Major depressive disorder, single episode, unspecified; J44.9 Chronic obstructive pulmonary disease, unspecified; M81.0 Age-related osteoporosis without current pathological fracture; Z79.899 Other long term (current) drug therapy; Z88.8 Allergy status to other drugs, medicaments and biological substances; Z88.5 Allergy status to narcotic agent
CPT/HCPCS: 36415; 80053; 82550; 83605; 85025; 85610; 85730; 86850; 86900; 86901; 87641; 94640; 94760; 99284; A9270-GY; G0378; G8978-GP-CH; G8979-GP-CH; G8980-GP-CH; J1644

== ENCOUNTER 2017-07-14 19:09 | Emergency (ER) | payer MEDICARE, OTHER ==
--- NOTE | 2017-07-14 20:45 | ED ---
Maricarmen Carrillo Nilda, scribed for Paulie Small MD on 07/14/17 at 1943 . ED Suture/Wound Check - HPI Summary HPI Summary: This patient is an 81 year old F presenting from [place] to [facility] accompanied by daughter with a chief complaint of constant draining wound on LLE since this morning. Today pt was at wound care for left ankle hematoma evacuation. Since then, wound has been draining clear fluid copiously, per daughter. Pt states she has had the hematoma since 06/30/17 and it did not resolve spontaneously, which is why pt had it evacuated, per daughter. Daughter states pt is due to return for wound re-check in one week. Yesterday morning, pt finished her last dose of abx, per daughter. Pt denies icing the wound, but states shes been ambulating. The patient rates the pain 7/10 in severity. Symptoms aggravated and alleviated by nothing. Patient reports mild foot pain and bilat edema (this morning), but denies any severe pain. - History Of Current Complaint Chief Complaint: EDExtremityLower Stated Complaint: LEFT LEG WOUND Time Seen by Provider: 07/14/17 19:22 Hx Obtained From: Patient Onset/Duration: Sudden Onset, Lasting Hours, Still Present Surgical Site: left ankle Severity: Severe Pain Intensity: 7 Pain Scale Used: 0-10 Numeric Procedure Type: hematoma evacuation Surgery Date: 07/14/17 - Allergies/Home Medications Allergies/Adverse Reactions: Allergies Allergy/AdvReac Type Severity Reaction Status Date / Time EDIE Inhibitors Allergy Unknown Verified 07/14/17 19:20 Reaction Details acetaminophen Allergy Nausea And Verified 07/14/17 19:20 Vomiting amiodarone Allergy Unknown Verified 07/14/17 19:20 Reaction Details codeine Allergy Nausea And Verified 07/14/17 19:20 Vomiting hydrocodone Allergy Nausea And Verified 07/14/17 19:20 Vomiting Iodinated Contrast- Oral and Allergy Swelling Verified 07/14/17 19:20 IV Dye lisinopril Allergy Swelling Verified 07/14/17 19:20 Macrolide Antibiotics Allergy Unknown Verified 07/14/17 19:20 Reaction Details metoprolol Allergy Fatigue Verified 07/14/17 19:20 morphine Allergy Unknown Verified 07/14/17 19:20 Reaction Details oxycodone Allergy Nausea And Verified 07/14/17 19:20 Vomiting pimecrolimus Allergy Unknown Verified 07/14/17 19:20 Reaction Details sirolimus Allergy Unknown Verified 07/14/17 19:20 Reaction Details tacrolimus Allergy Unknown Verified 07/14/17 19:20 Reaction Details tramadol Allergy Swelling Verified 07/14/17 19:20 zolpidem Allergy See Comment Verified 07/14/17 19:20 Home Medications: Home Medications Ibuprofen TAB* [Advil TAB*] 200 mg PO Q6H PRN 07/14/17 [History Confirmed ] PMH/Surg Hx/FS Hx/Imm Hx Endocrine/Hematology History: Denies: Hx Anticoagulant Therapy, Hx Diabetes, Hx Thyroid Disease Cardiovascular History: Reports: Hx Hypertension - benign, Other Cardiovascular Problems/Disorders - MITRAL VALVE REPACEMENT Denies: Hx Pacemaker/ICD Respiratory History: Reports: Hx Chronic Obstructive Pulmonary Disease (COPD) Denies: Hx Asthma GI History: Denies: Hx Ulcer History: Denies: Hx Renal Disease Musculoskeletal History: Reports: Hx Osteoporosis Sensory History: Reports: Hx Contacts or Glasses Denies: Hx Hearing Aid Opthamlomology History: Reports: Hx Contacts or Glasses Neurological History: Denies: Hx Dementia, Hx Seizures Psychiatric History: Denies: Hx Substance Abuse - Surgical History Surgery Procedure, Year, and Place: double bypass in 2008, back surgery; gallbladder and appendix - Immunization History Date of Influenza Vaccine: fall 2016 Infectious Disease History: No Infectious Disease History: Denies: Hx Clostridium Difficile, Hx Hepatitis, Hx Human Immunodeficiency Virus (HIV), Hx of Known/Suspected MRSA, Hx Shingles, Hx Tuberculosis, Hx Known/ Suspected VRE, Hx Known/Suspected VRSA, History Other Infectious Disease, Traveled Outside the [place] in Last 30 Days - Family History Known Family History: Positive: Cardiac Disease - Social History Alcohol Use: Occasionally Alcohol Amount: WINE WITH DINNER Substance Use Type: Reports: None Smoking Status (MU): Former Smoker Type: Cigarettes Have You Smoked in the Last Year: No Review of Systems Negative: Shortness Of Breath Positive: Edema, Other - mild left foot pain, wound on left ankle All Other Systems Reviewed And Are Negative: Yes Physical Exam - Summary Physical Exam Summary: VITAL SIGNS: Reviewed. GENERAL: Patient is a well-developed and nourished female who is lying comfortable in the stretcher. Patient is not in any acute respiratory distress. HEAD AND FACE: No signs of trauma. No ecchymosis, hematomas or skull depressions. No sinus tenderness. EYES: PERRLA, EOMI x 2, No injected conjunctiva, no nystagmus. EARS: Hearing grossly intact. Ear canals and tympanic membranes are within normal limits. MOUTH: Oropharynx within normal limits. NECK: Supple, trachea is midline, no adenopathy, no JVD, no carotid bruit, no c- spine tenderness, neck with full ROM. CHEST: Symmetric, no tenderness at palpation LUNGS: Clear to auscultation bilaterally. No wheezing or crackles. CVS: Regular rate and rhythm, S1 and S2 present, no murmurs or gallops appreciated. ABDOMEN: Soft, non-tender. No signs of distention. No rebound no guarding, and no masses palpated. Bowel sounds are normal. EXTREMITIES: We removed dressing from left leg and saw large incision with skin removed over lateral aspect of the left leg. Wound was packed. No active bleeding. There is +1 piting edema left less than right. We noted left foot is cold. Unable to palpate pulses b/c pts edema. Sensory and motor exam is intact. She has good capillary refill. NEURO: Alert and oriented x 3. No acute neurological deficits. Speech is normal and follows commands. SKIN: Dry and warm Triage Information Reviewed: Yes Vital Signs On Initial Exam: Initial Vitals Temp Pulse Resp BP Pulse Ox 97.1 F 75 16 139/64 98 07/14/17 19:15 07/14/17 19:15 07/14/17 19:15 07/14/17 19:15 07/14/17 19:15 Vital Signs Reviewed: Yes Diagnostics - Vital Signs Vital Signs Temp Pulse Resp BP Pulse Ox 07/14/17 19:15 97.1 F 75 16 139/64 98 - Laboratory Lab Statement: Any lab studies that have been ordered have been reviewed, and results considered in the medical decision making process. Re-Evaluation - Re-Evaluation First Eval Re-Evaluation Time: 20:13 Comment: Left foot is warmer. Better color. Not as pale as it was before. No more oozing. Dressing will be changed and patient will be D/C home. Course/Dx - Course Assessment/Plan: Pt is 81 y/o and has multiple medical problems. She fell on June 29 and had large left leg hematoma. Hematoma was evacuated today at wound clinic because it was not going away. Pt came this evening because the dressing was soaking wet. We removed dressing from left leg and saw large incision with skin removed over lateral aspect of the left leg. Wound was packed. No active bleeding. There is +1 pitting edema left less than right. We noted left foot is cold. Unable to palpate pulses b/c pts edema. Sensory and motor exam is intact. She has good capillary refill. Pt foot most likely cold from wet dressing. Pt foot will be warmed with warm blanket for half hour and we will recheck. [2022] Left foot is warmer. Better color. Not as pale as it was before. No more oozing. Dressing will be changed and patient will be D/C home with Dx of wound recheck. - Clinical Impression Provider Diagnoses: Encounter for wound re-check Discharge - Sign-Out/Discharge Documenting (check all that apply): Discharge - home - Discharge Plan Condition: Stable Disposition: HOME Patient Education Materials: Acute Wound Care (ED), Acute Wounds (ED) Referrals: Lucien Milligan MD [Primary Care Provider] - 3 Days Additional Instructions: Keep your wound re-check appointment. RETURN TO THE EMERGENCY DEPARTMENT FOR CHANGING OR WORSENING SYMPTOMS. The documentation as recorded by the Maricarmen lala Nilda accurately reflects the service I personally performed and the decisions made by me, Paulie Small MD.
[2017-07-14 21:02] VITALS: BP 121/69
== END 2017-07-14 20:56 | disposition home or self-care (01) ==
LOC: ED 19:09
DX: S81.802A Unspecified open wound, left lower leg, initial encounter (principal); Y83.8 Other surgical procedures as the cause of abnormal reaction of the patient, or of later complication, without mention of misadventure at the time of the procedure; I10 Essential (primary) hypertension; Z88.8 Allergy status to other drugs, medicaments and biological substances
CPT/HCPCS: 99282

== ENCOUNTER 2018-08-18 10:14 | Emergency (ER) | payer MEDICARE, OTHER ==
[2018-08-18 10:36] VITALS: BP 127/62
--- NOTE | 2018-08-18 10:58 | UC ---
Skin Complaint HPI - HPI Summary HPI Summary: CHIEF COMPLAINT and HPI: This is a 82-year-old female with a complex past medical history valve replacement and atrial fibrillation who reports swelling and redness to both feet. This is developed over the past week. In itches. She was seen by her regular physician, but the rash at that time was smaller. He is here with her caregiver and they note that she change socks approximately 2 weeks ago. She does have a history possibly 6 months ago of lower extremity infection was treated at a wound clinic. She is on alternating doses of Lasix for lower extremity swelling. The patient states that the rash on her feet is mildly uncomfortable. She denies redness, increased temperature or calf pain. VITAL SIGNS & SaO2 REVIEWED. Within normal limits unless noted. 124/62 NURSES NOTE REVIEWED. "Pt here with rash and swelling on both feet that started last Saturday 08/12. Pt states rash is itchy and painful. Went to Dr. Bal on Tuesday 08/15. " - History of Current Complaint Time Seen by Provider: 08/18/18 10:25 Stated Complaint: RASH ON FEET AND SWELLING Pain Intensity: 8 - Allergy/Home Medications Allergies/Adverse Reactions: Allergies Allergy/AdvReac Type Severity Reaction Status Date / Time EDIE Inhibitors Allergy Unknown Verified 08/18/18 10:23 Reaction Details amiodarone Allergy Unknown Verified 08/18/18 10:23 Reaction Details codeine Allergy Nausea And Verified 08/18/18 10:23 Vomiting hydrocodone Allergy Nausea And Verified 08/18/18 10:23 Vomiting Iodinated Contrast- Oral and Allergy Swelling Verified 08/18/18 10:23 IV Dye lisinopril Allergy Swelling Verified 08/18/18 10:23 Macrolide Antibiotics Allergy Unknown Verified 08/18/18 10:23 Reaction Details metoprolol Allergy Fatigue Verified 08/18/18 10:23 morphine Allergy Unknown Verified 08/18/18 10:23 Reaction Details oxycodone Allergy Nausea And Verified 08/18/18 10:23 Vomiting pimecrolimus Allergy Unknown Verified 08/18/18 10:23 Reaction Details sirolimus Allergy Unknown Verified 08/18/18 10:23 Reaction Details tacrolimus Allergy Unknown Verified 08/18/18 10:23 Reaction Details tramadol Allergy Swelling Verified 08/18/18 10:23 zolpidem Allergy See Comment Verified 08/18/18 10:23 Home Medications: Home Medications Furosemide TAB* [Lasix TAB*] 20 mg PO DAILY 08/18/18 [History Confirmed 08/18/18 ] Nitroglycerin TAB 0.4 MG* 0.4 mg SL . NEEDED PRN 08/18/18 [History Confirmed 08/18/18] celeCOXIB CAP* [Celebrex CAP*] 100 mg PO DAILY 08/18/18 [History Confirmed 08/18] PMH/Surg Hx/FS Hx/Imm Hx - Additional Past Medical History Additional PMH: PAST MEDICAL HISTORY- INCLUDES LYMPHEDEMA, DEPRESSION, A. FIB, VALVE REPLACEMENT , COPD. CHRONIC and RECURRENT HEALTH PROBLEM LIST REVIEWED. Information relevant to present complaint: Patient had wound care for skin infection of the lower extremities approximately 6 months ago. VISIT HISTORY REVIEWED: MEDICATIONS & ALLERGIES REVIEWED. Blood pressure was 127/62. This slight elevation may be because of her presence in the [facility]. She does take furosemide for lower extremity swelling. HYPERTENSION STATUS: Lasix FAMILY HISTORY: Positive for: cardiovascular disease, diabetes. Patient denies family history of: cancer. SOCIAL HISTORY: non-smoker, lives at [place] and has a caregiver who is with her today, retired. Other History Of: Negative For: Anticoagulant Therapy - Surgical History Surgical History: Yes Surgery Procedure, Year, and Place: double bypass in 2008, back surgery; gallbladder and appendix - Family History Known Family History: Positive: Unknown, Cardiac Disease - Social History Alcohol Use: Daily Alcohol Amount: WINE WITH DINNER Substance Use Type: None Smoking Status (MU): Former Smoker Type: Cigarettes Length of Time of Smoking/Using Tobacco: 20 Have You Smoked in the Last Year: No When Did the Patient Quit Smoking/Using Tobacco: 8 yrs ago - Immunization History Most Recent Tetanus Shot: Dr Milligan's office - [facility] Review of Systems All Other Systems Reviewed And Are Negative: Yes Skin: Positive: Rash - both feet; itching and swelling Respiratory: Positive: Negative. Negative: Shortness Of Breath Cardiovascular: Positive: Negative. Negative: Palpitations Gastrointestinal: Positive: Negative. Negative: Abdominal Pain Is Patient Immunocompromised?: No Physical Exam - Summary Physical Exam Summary: Appearance: The patient is well-appearing, is in no pain or distress, and is well-nourished. Eyes: Conjunctiva are clear. Pupils are equal and reactive to light and accommodation. Extra ocular muscle movement is intact. ENT: The hearing is grossly normal, the pharynx is normal, and the TMs are normal. There is no muffled or hoarse voice. No stridor. Neck: The neck is supple and there is no lymphadenopathy. Respiratory: The chest is non-tender to palpation and without crepitus. The lungs are clear, there are normal breath sounds, and there is no respiratory distress. No wheezes, rales or rhonchi. Cardiovascular: Heart sounds reveal a regular rate and rhythm. There are no clicks, rubs or murmurs. There are no carotid bruits or thrills. Circulation is grossly intact. Abdomen: The abdomen is soft and nontender. There is no organomegaly. Bowel sounds are present and within normal limits. No point tenderness at McBurneys point. No CVA tenderness. Musculoskeletal: Strength is intact. The patient moves all extremities. Neurological: The patient is alert. Motor and sensory are examination grossly intact. Speech is normal. Psychological: The patient displays age appropriate behavior, and is conversant. GCS=15. Skin: There is an erythematous rash on the dorsum of both feet. The rash extends laterally to the calcaneal area. There is mild swelling of the dorsum of both feet and 1+ edema of the ankles. There is no evidence vesicles and the rash does belgica with palpation. There is no ascending cellulitis or lymphangitis. Vital Signs: Initial Vital Signs Temp 98.4 F 08/18/18 10:26 Pulse 50 08/18/18 10:26 Resp 16 08/18/18 10:26 BP 127/62 08/18/18 10:26 Pulse Ox 96 08/18/18 10:26 Course/Dx - Course Course Of Treatment: MEDICAL DECISION MAKING and PLAN: This is a 82-year-old female with a complex past medical history valve replacement and atrial fibrillation who reports swelling and redness to both feet. This is developed over the past week. In itches. She was seen by her regular physician, but the rash at that time was smaller. He is here with her caregiver and they note that she change socks approximately 2 weeks ago. She does have a history possibly 6 months ago of lower extremity infection was treated at a wound clinic. She is on alternating doses of Lasix for lower extremity swelling. The patient states that the rash on her feet is mildly uncomfortable. She denies redness, increased temperature or calf pain. There is an erythematous rash on the dorsum of both feet. The rash extends laterally to the calcaneal area. There is mild swelling of the dorsum of both feet and 1+ edema of the ankles. There is no evidence vesicles and the rash does belgica with palpation. There is no ascending cellulitis or lymphangitis. My differential is between a localized cellulitis, and atypical petechial rash, or contact dermatitis. In discussion with with the patient and her caregiver, they noted that she change socks 2 weeks ago. The patient has been instructed to elevate, use Lotrisone over the next 7-10 days, and follow-up with her primary care physician to make sure this is improving and to deal with any increased swelling, for which she would need an adjustment. Lasix. Patient and her caregiver voiced understanding of this plan. MEDICATIONS REVIEWED. HYPERTENSION STATUS REVIEWED WITH PATIENT IF blood pressure is above 120/80. 127/62. Patient is urgent/emergent causing transient blood pressure elevation. Patient is being treated for hypertension, and will follow up with PMD within 4 weeks. - Differential Diagnoses - Skin Complaint Differential Diagnoses: Abscess, Cellulitis, Contact Dermatitis - Diagnoses Provider Diagnosis: Contact dermatitis Discharge - Sign-Out/Discharge Documenting (check all that apply): Patient Departure All imaging exams completed and their final reports reviewed: No Studies - Discharge Plan Condition: Stable Disposition: HOME Prescriptions: Clotrimazole/Betamethasone* [Lotrisone Cream*] 1 applic TOPICAL BID #30 tube MDD 3 Patient Education Materials: Contact Dermatitis (DC) Referrals: Lucien Milligan MD [Primary Care Provider] - Additional Instructions: WE DISCUSSED: PLEASE SEEK CARE AT THE EMERGENCY DEPARTMENT IF SYMPTOMS WORSEN OR IF NEW SYMPTOMS DEVELOP. FOLLOW UP WITH YOUR PRIMARY CARE PHYSICIAN IF CONDITION CONTINUES BEYOND 3 DAYS WITHOUT IMPROVEMENT. YOUR DIAGNOSIS IS: ALLERGIC OR FUNGAL RASH ON YOUR FEET YOUR PRESCRIPTION RECOMMENDATION IS: LOTRISONE 2-3 TIMES A DAY FOR 5-10 DAYS OTHER INSTRUCTIONS: FOLLOW UP WE DISCUSSED with your primary care physician in 3-5 days. Picture your rash is getting better and that is not spreading. Also check the swelling in her ankles because you may need to adjust her Lasix. Call me in 2 days when I'm working here, if you have any questions or concerns. - Billing Disposition and Condition Condition: STABLE Disposition: Home
== END 2018-08-18 11:15 | disposition home or self-care (01) ==
LOC: UCEAST 10:14
DX: L25.9 Unspecified contact dermatitis, unspecified cause (principal); I10 Essential (primary) hypertension; I89.0 Lymphedema, not elsewhere classified; I48.91 Unspecified atrial fibrillation; J44.9 Chronic obstructive pulmonary disease, unspecified; F32.9 Major depressive disorder, single episode, unspecified; Z95.2 Presence of prosthetic heart valve; Z95.1 Presence of aortocoronary bypass graft; Z88.5 Allergy status to narcotic agent; Z88.8 Allergy status to other drugs, medicaments and biological substances; Z88.1 Allergy status to other antibiotic agents; Z91.041 Radiographic dye allergy status; Z87.891 Personal history of nicotine dependence
CPT/HCPCS: 99212; G0463

== ENCOUNTER 2018-08-18 15:39 | Emergency (ER) | payer MEDICARE, OTHER ==
[2018-08-18] MEDS ORDERED: diPHENhydraMINE IV* 50 MG/ML 1 ml VIAL (BENADRYL) IV ONE ×2 (19:13)
[2018-08-18] MEDS ORDERED: NS 0.9% 1000 ML** 1,000 ML IV ONE (19:13)
[2018-08-18] MEDS ORDERED: Dexamethasone IV* 4 MG/ML 1 ML (4 MG) IV SLOW PU ONE (19:13)
--- NOTE | 2018-08-18 19:14 | ED ---
Skin Complaint - HPI Summary HPI Summary: Pt is an 82 y/o F presenting to the ED with a chief complaint of a rash on her lower extremity initially onset over the weekend. She had a small rash on her L foot noticed on 08/15/18, so they went to the doctor who said to keep it elevated. She did so, but today they noticed it spread up her legs and all over her body. She states its pruritic, erythematous, and painful. She denies fevers or chills. - History of Current Complaint Chief Complaint: EDRashSkinAbscess Time Seen by Provider: 08/18/18 18:43 Stated Complaint: RASH PER PT Hx Obtained From: Patient Onset/Duration: Started Days Ago, Still Present Skin Exposure Onset/Duration: Days Ago Timing: Constant, Lasting Days Onset Severity: Moderate Current Severity: Mild Pain Intensity: 0 Pain Scale Used: 0-10 Numeric Skin Location: Diffuse Character: Pruritus, Redness, Painful Aggravating Symptom(s): Touch Alleviating Symptom(s): Nothing Associated Signs & Symptoms: Rash - Additional Pertinent History Primary Care Physician: DESIRE - Allergy/Home Medications Allergies/Adverse Reactions: Allergies Allergy/AdvReac Type Severity Reaction Status Date / Time EDIE Inhibitors Allergy Unknown Verified 08/18/18 10:23 Reaction Details amiodarone Allergy Unknown Verified 08/18/18 10:23 Reaction Details codeine Allergy Nausea And Verified 08/18/18 10:23 Vomiting hydrocodone Allergy Nausea And Verified 08/18/18 10:23 Vomiting Iodinated Contrast- Oral and Allergy Swelling Verified 08/18/18 10:23 IV Dye lisinopril Allergy Swelling Verified 08/18/18 10:23 Macrolide Antibiotics Allergy Unknown Verified 08/18/18 10:23 Reaction Details metoprolol Allergy Fatigue Verified 08/18/18 10:23 morphine Allergy Unknown Verified 08/18/18 10:23 Reaction Details oxycodone Allergy Nausea And Verified 08/18/18 10:23 Vomiting pimecrolimus Allergy Unknown Verified 08/18/18 10:23 Reaction Details sirolimus Allergy Unknown Verified 08/18/18 10:23 Reaction Details tacrolimus Allergy Unknown Verified 08/18/18 10:23 Reaction Details tramadol Allergy Swelling Verified 08/18/18 10:23 zolpidem Allergy See Comment Verified 08/18/18 10:23 PMH/Surg Hx/FS Hx/Imm Hx Previously Healthy: Yes Endocrine/Hematology History: Denies: Hx Anticoagulant Therapy, Hx Diabetes, Hx Thyroid Disease Cardiovascular History: Reports: Hx Hypertension, Other Cardiovascular Problems/ Disorders - MITRAL VALVE REPACEMENT Denies: Hx Pacemaker/ICD Respiratory History: Reports: Hx Chronic Obstructive Pulmonary Disease (COPD) Denies: Hx Asthma GI History: Denies: Hx Ulcer History: Denies: Hx Renal Disease Musculoskeletal History: Reports: Hx Osteoporosis Sensory History: Reports: Hx Contacts or Glasses Denies: Hx Hearing Aid Opthamlomology History: Reports: Hx Contacts or Glasses Neurological History: Denies: Hx Dementia, Hx Seizures Psychiatric History: Denies: Hx Substance Abuse - Surgical History Surgery Procedure, Year, and Place: double bypass in 2008, back surgery; gallbladder and appendix - Immunization History Date of Influenza Vaccine: fall 2016 Infectious Disease History: No Infectious Disease History: Denies: Hx Clostridium Difficile, Hx Hepatitis, Hx Human Immunodeficiency Virus (HIV), Hx of Known/Suspected MRSA, Hx Shingles, Hx Tuberculosis, Hx Known/ Suspected VRE, Hx Known/Suspected VRSA, History Other Infectious Disease, Traveled Outside the [place] in Last 30 Days - Family History Known Family History: Positive: Cardiac Disease - Social History Alcohol Use: Daily Alcohol Amount: WINE WITH DINNER Hx Substance Use: No Substance Use Type: Reports: None Hx Tobacco Use: Yes Smoking Status (MU): Former Smoker Type: Cigarettes Length of Time of Smoking/Using Tobacco: 20 Have You Smoked in the Last Year: No Review of Systems Negative: Fever, Chills Positive: Rash, Other - pruritus All Other Systems Reviewed And Are Negative: Yes Physical Exam - Summary Physical Exam Summary: GENERAL: Patient is a well-developed and nourished female who is lying comfortable in the stretcher. Patient is not in any acute respiratory distress. HEAD AND FACE: Normocephalic EYES: PERRLA, EOMI x 2. EARS: Hearing grossly intact. MOUTH: Oropharynx within normal limits. NECK: Supple, trachea is midline, no adenopathy, no JVD, no carotid bruit. CHEST: Symmetric, no tenderness at palpation LUNGS: Clear to auscultation bilaterally. No wheezing or crackles. CVS: Regular rate and rhythm, S1 and S2 present, no murmurs or gallops appreciated. ABDOMEN: Soft, non-tender. Bowel sounds are normal. No abnormal abdominal pulsations. EXTREMITIES: Full ROM in all major joints, no edema, no cyanosis or clubbing. NEURO: Alert and oriented x 3. No acute neurological deficits. Speech is normal and follows commands. SKIN: Dry and warm. Petechial rash on bilateral LE with 2+ pitting edema bilaterally. Triage Information Reviewed: Yes Vital Signs On Initial Exam: Initial Vitals Temp Pulse Resp BP Pulse Ox 99.3 F 78 17 153/67 95 08/18/18 15:43 08/18/18 15:43 08/18/18 15:43 08/18/18 15:43 08/18/18 15:43 Vital Signs Reviewed: Yes Diagnostics - Vital Signs Vital Signs Temp Pulse Resp BP Pulse Ox 08/18/18 17:31 99.3 F 84 16 143/55 96 08/18/18 15:43 99.3 F 78 17 153/67 95 - Laboratory Result Diagrams: 08/18/18 19:27 08/18/18 19:27 Lab Statement: Any lab studies that have been ordered have been reviewed, and results considered in the medical decision making process. Re-Evaluation - Re-Evaluation 1st re-eval Re-Evaluation Time: 21:45 Change: Improved Comment: I spoke with Dr. Joshua who stated that she believes it is an allergic reaction. I discussed the results with the patient. She is stable and agreeable with the plan. Course/Dx - Course Course Of Treatment: Pt is an 82 y/o F presenting to the ED with a chief complaint of a rash that initially came on on her L foot over the weekend. It has gotten worse over the past couple of days, and she reports pruritus, erythema, and pain. She denies fevers or chills. Her physical exam shows a petechial rash on bilateral LE with 2+ pitting edema bilaterally. Pts chemistry shows BUN of 27, Creatinine of 1.25, BUN/Creatinine ratio of 21.6, Calcium of 10.4, and BNP of 205. Pts hematology shows MCH of 32 and plt count of 129. Her UA shows a UTI. I asked Dr. Joshua to evaluate the pt at 2057 and she agreed. I spoke with Dr. Joshua at around 2144 who stated that she believes it is an allergic reaction. I discussed the results with the patient. She is stable and agreeable with the plan. I discussed results with patient, and she reports feeling better. She is hemodynamically stable and safe for discharge. Strict return precautions given and she will otherwise follow up with her PCP. - Diagnoses Provider Diagnoses: UTI (urinary tract infection), Allergic reaction Discharge - Sign-Out/Discharge Documenting (check all that apply): Patient Departure Patient Received Moderate/Deep Sedation with Procedure: No - Discharge Plan Condition: Stable Disposition: HOME Prescriptions: Cephalexin CAP* [Keflex CAP*] 500 mg PO BID #14 cap hydrOXYzine HCl [Hydroxyzine HCl] 50 mg PO BID PRN #14 tablet PRN Reason: Allergy Symptoms predniSONE [Prednisone 20 MG TAB] 20 mg PO DAILY #4 tablet Referrals: Lucien Milligan MD [Primary Care Provider] - Additional Instructions: Please take your prescribed medications as instructed. Follow up with your primary care provider within the next 1-3 days. Return to the emergency department with any new or worsening symptoms. - Billing Disposition and Condition Condition: STABLE Disposition: Home - Attestation Statements Document Initiated by Scribe: Yes Documenting Scribe: Lisa Damon Provider For Whom Vee is Documenting (Include Credential): Delmy Bailey MD. Scribe Attestation: ILisa, scribed for Delmy Bailey MD. on 08/18/18 at 2149. Scribe Documentation Reviewed: Yes Provider Attestation: The documentation as recorded by the scribeLisa accurately reflects the service I personally performed and the decisions made by , Daryn Bailey MD. Status of Scribe Document: Viewed Consult Consult: 2057 - I spoke with Dr. Joshua who agreed to come and evaluate the patient.
[2018-08-18 19:33] LABS: ABS Eosinophils 0.1 10^3/ul (0-0.6); ABS Lymphocytes 0.6 10^3/ul (1.0-4.8); ABS Monocytes 0.3 10^3/ul (0-0.8); ABS Neutrophils 3.9 10^3/ul (1.5-7.7); Eosinophil % 2.2 %; Hematocrit 46 % (35-47); Hemoglobin 15.5 g/dL (12.0-16.0); Lymphocyte % 11.5 %; Mean Corpuscular HGB Conc 34 g/dL (31-36); Mean Corpuscular Hemoglobin 32 pg (27-31); Mean Corpuscular Volume 96 fL (80-97); Mean Platelet Volume 8.8 fL (7.4-10.4); Platelet Count 129 10^3/uL (150-450); Red Cell Distribution Width 14 % (10.5-15)
[2018-08-18 19:43] LABS: Activated Partial Thrombo Time 34.6 seconds (26.0-36.3); INR 0.98 (0.82-1.09)
[2018-08-18 19:50] LABS: Albumin 4.6 g/dL (3.2-5.2); Albumin/Globulin Ratio 1.6 (1-3); BUN/Creatinine Ratio 21.6 (8-20); Calcium 10.4 mg/dL (8.6-10.3); EGFR African American 49.5 (>60); EGFR Non-African American 40.9 (>60); Globulin 2.9 g/dL (2-4); Potassium 3.8 mmol/L (3.5-5.0); Total Bilirubin 0.9 mg/dL (0.2-1.0); Total Protein 7.5 g/dL (6.4-8.9)
[2018-08-18 20:44] LABS: Urine Appearance Cloudy; Urine Bacteria 1+ (Absent); Urine Bilirubin Negative (Negative); Urine Blood 1+ (Negative); Urine Color Yellow; Urine Glucose Negative (Negative); Urine Ketones Negative (Negative); Urine Nitrite Positive (Negative); Urine Protein Negative (Negative); Urine Red Blood Cell 2+(6-10/hpf) (Absent); Urine Specific Gravity 1.011 (1.010-1.030); Urine Squamous Epithelial Cell Present (Absent); Urine Transitional Epithelial Present (Absent); Urine Urobilinogen Negative (Negative); Urine White Blood Cell 3+(>20/hpf) (Absent)
[2018-08-18] MEDS ORDERED: Cephalexin CAP* 500 MG PO ONE (21:21)
[2018-08-18 22:18] VITALS: BP 132/84
--- NOTE | 2018-08-20 01:38 | CONS ---
AMENDED REPORT NOW INCLUDES DATE OF CONSULT - ESIGNED BEFORE ADJUSTMENT [facility] MEDICINE CONSULTATION REPORT: DATE OF CONSULT: 08/19/18 PROVIDER: Lauren Mcdonald NP. ATTENDING PHYSICIAN: Dr. Bailey. PRIMARY CARE PHYSICIAN: Dr. Milligan. CONSULTING PHYSICIAN: Dr. Lisa Joshua (dictated by Lauren Mcdonald NP). REASON FOR CONSULT: Rash. HISTORY OF PRESENT ILLNESS: Ms. Reyes is an 82-year-old female with past medical history significant for hypertension, coronary artery disease, depression, falls , COPD, osteoporosis, AFib, diverticulitis, arthritis, who presented to the emergency room with complains of progressively worsening rash. The patient reports that she has rash that started on bilateral feet on Wednesday. She reports that it was red and itchy. She reports that this rash progressively has gotten worse and now has traveled up her legs to her thighs and now is on her trunk as well as her upper extremities. Due to the progressively worsening rash, the patient presented to the emergency room for further evaluation. The patient reports that she was seen by her primary care doctor earlier in the week and reports that her primary care thought that the rash was related to the use of new socks. At that time, she was told to stop wearing her new compression socks. The patient reports that the rash continued to get worse, so she presented to Urgent Care for further evaluation, and from Urgent Care was sent to the emergency room for further evaluation. The patient denies any fever, chills, nausea, or vomiting. Denies any new soaps, laundry detergents or any changes in daily routines. She denies any chest pain, edema, cough, hemoptysis, or shortness of breath. She denies any nausea or vomiting. She does report she has diarrhea on and off which is not new. Denies any abdominal pain. She denies any gross hematuria. She does report some pain with urination and frequency. Denies any weakness or sensory loss. She denies any dysphagia, arthralgias, or myalgias. She does report an itchy rash to bilateral lower extremities as well as trunk and upper extremities. She denies any psychosis or anxiety. Due to the concerning rash, we were asked to see her in consultation. PAST MEDICAL HISTORY: 1. Hypertension. 2. CAD. 3. Depression. 4. Falls. 5. COPD. 6. Osteoporosis. 7. Atrial fibrillation. 8. Diverticulitis. 9. Arthritis. PAST SURGICAL HISTORY: 1. History of back surgery. 2. Mitral valve leaflet replacement. 2. CABG. 3. Cholecystectomy. HOME MEDICATIONS: 1. Celebrex 100 mg p.o. daily. 2. Covert-3 fatty acid 1000 mg p.o. daily. 3. Nitroglycerin 0.4 mg sublingual as needed. 4. Furosemide 20 mg p.o. daily. 5. Lotrisone cream topically b.i.d. 6. Vitamin D3 5000 units p.o. daily. ALLERGIES: 1. EDIE INHIBITORS. 2. AMIODARONE. 3. CODEINE. 4. HYDROCODONE. 5. IV CONTRAST. 6. LISINOPRIL. 7. MACROLIDE ANTIBIOTICS. 8. METOPROLOL. 9. MORPHINE. 10. OXYCODONE. 11. PIMECROLIMUS. 12. SIROLIMUS. 13. TACROLIMUS. 14. TRAMADOL. 15. AMBIEN. FAMILY HISTORY: Father at the age of 55 from a heart attack. Brother in the 70s of a heart attack. Mother at the age of 79 from an DC. Mother with a history of diabetes. No reported history of cancer. SOCIAL HISTORY: The patient quit smoking approximately 10 years ago. She has a 65- pack-year history of smoking. Denies any illicit drug use. She lives in an apartment at [place]. Surrogate decision maker in the event she is unable to make her own decisions is her daughter Ellie. She is a DNR/DNI. REVIEW OF SYSTEMS: A 14-point review of systems was completed. All pertinent positives are mentioned in the HPI, otherwise were negative. PHYSICAL EXAM: General: At this time, Ms. Reyes is an 82-year-old female. She is alert and oriented, resting on the stretcher in the emergency room. She is in no acute distress. HEENT: Head is atraumatic, normocephalic. Eyes: EOMs are intact. Sclerae anicteric and not pale. Oral mucosa appeared to be moist. Neck is supple. Lungs are clear to auscultation bilaterally. No wheezes, rales, or rhonchi. Cardiac: S1, S2. Regular rate and rhythm. No murmurs, rubs, or gallops. Abdomen is soft and nontender. Bowel sounds are present x4. Extremities: She is able to move all 4 extremities with 5/5 strength. There is no clubbing or cyanosis. Pedal pulses are +2 bilaterally. Neurologic: She is awake, alert, oriented x3. Speech is clear. Thought process is intact. There is no gross focal deficits. Skin: She does have a flat blanchable red rash noted to bilateral feet that is also noted to bilateral lower extremities, trunk, back, and upper extremities. DIAGNOSTIC STUDIES/LAB DATA: WBCs were 5.0, RBCs 4.80, hemoglobin 15.5, hematocrit was 46, platelet count 129. INR 0.98. Chemistry, sodium 142, potassium 3.8, chloride 102, carbon dioxide 31, anion gap of 9, BUN was 27, creatinine 1.25, BNP was 205. Urine was cloudy. PH was 5.0, specific gravity 1.011. Urine protein was negative, ketones were negative, blood was 1+, nitrites were positive. Bilirubin was negative. Urobilinogen was negative. Urine leukocyte esterase was 3+, wbc's were 3+, rbc's were 2+, squamous epithelial cells were present. Transitional epithelial cells were present. Bacteria was 1+. Hyaline casts were present. ASSESSMENT AND PLAN: Ms. Reyes is an 82-year-old female with past medical history significant for hypertension, coronary artery disease, depression, falls , chronic obstructive pulmonary disease, osteoporosis, atrial fibrillation, diverticulitis, and arthritis, who presented to emergency room with a complaint of progressively worsening rash since Wednesday. We were asked to see and evaluate the patient due to her rash by the emergency room physician. Our recommendations are as follows: 1. Rash. The patient has a flat, red, blanchable rash noted to her feet, lower extremities, trunk, back and upper extremities. The rash has an appearance of urticaria. I suspect this could possibly be allergic reaction to new compression socks that the patient reports she has recently started wearing. I would recommend to give the patient Atarax p.r.n. as needed for itching and to stop the use of the new compression socks. I would also recommend that if the patient develops shortness of breath, throat tightness, tongue swelling, chest pain or any other symptoms, she return to the emergency room for further evaluation. 2. Other underlying medical conditions per management of the emergency room. Dr. Bailey will provide recommendation on treatment of her urinary tract infection. TIME SPENT: Time spent on this consultation is approximately 45 minutes, more than half the time was spent at the bedside reviewing the events leading thus far to her hospitalization, performing my physical exam, and reviewing my plan of care. I have discussed this with my attending Lisa Joshua and Dr. Bailey in the emergency room, has been given recommendations. LAUREN MCDONALD, [employer] [employer] [id number]/CPS #: [id number] SEAN
--- NOTE | 2018-08-21 05:39 | PN ---
Progress Note - Progress Note Date of Service: 08/18/18 Note: Preliminary urine culture growing >100,000 e. coli. Pt. treated with keflex. Pending final sensitivity.
--- NOTE | 2018-08-22 07:51 | PN ---
Progress Note - Progress Note Date of Service: 08/18/18 Note: Urine culture final grew Escherichia coli 100,000 Patient was placed on Keflex prior to discharge This is sensitive to organism Nothing further at this time
== END 2018-08-18 22:17 | disposition home or self-care (01) ==
LOC: ED 15:39
DX: T78.40XA Allergy, unspecified, initial encounter (principal); X58.XXXA Exposure to other specified factors, initial encounter; N39.0 Urinary tract infection, site not specified; Z87.891 Personal history of nicotine dependence; Z88.5 Allergy status to narcotic agent
CPT/HCPCS: 36415; 80053; 81003; 81015; 83880; 85025; 85610; 85730; 87077; 87086; 87186; 96361; 96374; 96375; 99283; A9270-GY; J1100; J1200

== ENCOUNTER 2019-01-23 10:17 | Emergency (ER) | payer MEDICARE, OTHER ==
--- OUTSIDE RECORDS SUMMARY | 2019-01-23 10:26 | XMS REPORT | Continuity of Care Document ---
:1935 External Reference #:[id number] Author Name NIK Miller Address [address] [place] [address] Care Team Providers Name Role Phone [facility] - Diagnostic Care Team Information Cranberry Grower [phone] Radiology Jeff Mckeon MD - Cardiovascular Care Team Information Cranberry Grower [phone] Disease Iqra Harris MD - Facial Plastic Care Team Information Cranberry Grower [phone] Surgery Ta Vinson MD - Gastroenterology Care Team Information Cranberry Grower Ole Daniel - Pain Care Team Information Cranberry Grower [phone] Problems Active Problems Provider Date Essential hypertension Evans Chavez M.D. Onset: 09/17/1998 Osteoarthritis Evans Chavez M.D. Onset: 09/17/1998 Deficiency anemias Lucien Milligan M.D. Onset: 03/17/2011 Acute sinusitis Lucien Milligan M.D. Onset: 06/01/2011 Blister of hip with infection Lucien Milligan M.D. Onset: 09/28/2011 Transient altered mental status Lucien Milligan M.D. Onset: 11/24/2011 Backache Lucien Milligan M.D. Onset: 01/19/2012 Skin sensation disturbance Lucien Milligan M.D. Onset: 01/19/2012 Depressive disorder Lucien Milligan M.D. Onset: 02/23/2012 Sprain of elbow and forearm Lucien Milligan M.D. Onset: 04/19/2012 Weight decreased Lucien Milligan M.D. Onset: 04/19/2012 Multiple joint pain Lucien Milligan M.D. Onset: 2012 Abrasion and/or friction burn of lower limb Lucien Milligan M.D. Onset: without infection Urge incontinence of urine Lucien Milligan M.D. Onset: 12/06/2012 Peripheral vascular disease Lucien Milligan M.D. Onset: 08/02/2013 Edema Lucien Milligan M.D. Onset: 09/08/2013 Malaise and fatigue Lucien Milligan M.D. Onset: 06/26/2014 Open wound of hand except fingers without Lucien Milligan M.D. Onset: 11/2014 complication Open wound of knee and/or leg and/or ankle Lucien Milligan M.D. Onset: 11/2014 Urinary incontinence Lucien Milligan M.D. Onset: 01/08/2015 Nervous system symptoms Lucien Milligan M.D. Onset: 02/28/2015 Drug-induced hypotension Lucien Milligan M.D. Onset: 02/28/2015 Superficial foreign body of finger without Lucien Milligan M.D. Onset: major open wound AND without infection Type 2 diabetes mellitus Lucien Milligan M.D. Onset: 09/22/2016 Low back pain Lucien Milligan M.D. Onset: 09/22/2016 Neck pain Lucien Milligan M.D. Onset: 03/16/2017 Chronic obstructive lung disease Lucien Milligan M.D. Onset: 06/08/2017 Influenza due to identified novel influenza Lucien Milligan M.D. Onset: A virus with other respiratory manifestations Urinary tract infectious disease Lucien Milligan M.D. Onset: 07/20/2017 Dizziness and giddiness Lucien Milligan M.D. Onset: 11/02/2017 Constipation Lucien Milligan M.D. Onset: 03/08/2018 Social History Type Date Description Comments Sex Unknown Tobacco Use Start: Unknown Nonsmoker Tobacco Use Start: Unknown End: Former Cigarette Smoker 1ppd since teenager; Unknown quit 8 years ago Tobacco Use Start: Unknown End: Patient is a former smoker Unknown Allergies, Adverse Reactions, Alerts Active Allergies Reaction Severity Comments Date Biaxin Nausea 09/20/2000 Zithromax ineffective per pt 10/29/2000 Codeine vomiting 01/24/2001 Xray Dye mouth swelled up 01/24/2001 Midrin 02/14/2002 Lisinopril,Prinivil Tongue Swelling 06/13/2002 Avelox 12/09/2004 Oxycodone HCL 10/16/2008 Tramadol HCL 10/16/2008 Doxycycline Urticaria, diarrhea 01/14/2010 Clindamycin diarrhea 01/14/2010 Ambien 2012 Meclizine Insomina 12/04/2016 Medications Active Medications SIG Qnty Indications Ordering Date Provider Flonase use 2 sprays in 16gm Lucien Cortes 06/07/2018 50mcg/Act each nostril one Mya Milligan Suspension time a day as needed Celecoxib Take 1 Capsule By 30mecca Mccullough 09/14/2017 200mg Mouth Every Day NIK Mensah Capsules Advair Diskus Inhale 1 puff By 60units Lucien Cortes 09/04/2017 Mouth Two Times Mya Milligan 250-50mcg/Dose Daily - Rinse Aerosol Mouth Well After Each Use Ventolin HFA take 1-2 puffs 8gm Lizzie Chavis 08/05/2017 inhaled every 4 FRANCESCA Hernandez 108(90Base) mcg/Act hours as needed Aerosol for wheezing or tightness in the chest Aerochamber Plus dispense one for Lizzie Mccullough 08/02/2017 use with albuterol NIK Mensah Misc inhaler Lasix 3 by mouth every 90tabs Lucien Cortes 07/20/2017 20mg Tablets in the morning Mya Milligan Fish Oil take one capsule 30caps Lucien Cortes 12/18/2016 1000mg by mouth every day Mya Milligan Capsules (heart health) Nitrostat 1 under tongue as 25tabs Lucien Cortes 03/13/2014 0.4mg needed repeat Mya Milligan Tablets Sub every 5 minutes upto 3 tabs,call 911. Vitamin D3 Maximum daily Lucien Cortes 03/13/2014 Strength Mya Milligan 5000Unit Capsules Imodium A-D 2 capsules by Unknown 2mg mouth after 1st Capsules loose stool and 1 cap after each additional loose stool up to max 8 caps per day. Clotrimazole/Betamet apply to affected Unknown hasone Dipropionate area twice a day 1-0.05% Cream History Medications Cipro 1 by mouth twice 10tabs Lucien Milligan, 10/25/2018 - 250mg Tablets a day Mya 12/20/2018 Medications Administered in Office Medication SIG Qnty Indications Ordering Provider Date H1N1 MDCR vaccine any route Lucien Milligan M.D. 03/26/2009 Injection Injection Subcutaneous Or Lucien Milligan M.D. 12/20/2006 Intramuscular Injection Immunizations CPT Code Status Date Vaccine Lot # [id number] Given 12/17/2017 Influenza Vac, Quadriv[place], [place] [address] Given 01/08/2016 High-Dose, Influenza Virus Vacccine-fluzone 65 [id number] and older 07052 Given 01/08/2015 Pneumococcal Conjugate Vacc-13 [id number] 42392 Given 01/08/2015 High-Dose, Influenza Virus Vacccine-fluzone 65 [id number] and older 63038 Given 01/19/2012 High-Dose, Influenza Virus Vacccine-fluzone 65 [id number] and older 44147 Given 12/27/2010 DO Not Use Split Influenza Virus Vaccine 74680 Given 08/06/2008 Pneumococcal Immunization [id number] 76358 Given 01/25/2007 DO Not Use Split Influenza Virus Vaccine [id number] 05090 Given 12/20/2006 Tetanus And Diptheria Adult Preservative Free [id number] >7Yrs 06123 Given 06/15/2006 Zostivax [id number] 62905 Given 02/08/2006 DO Not Use Split Influenza Virus Vaccine [id number] 29788 Given 02/09/2005 DO Not Use Split Influenza Virus Vaccine 55190 Given 01/24/2004 Influenza Virus Vaccine, Live For Intranasla Use 38899 Given 01/03/2003 DO Not Use Split Influenza Virus Vaccine 28621 Given 01/03/2003 DO Not Use Split Influenza Virus Vaccine 54805 Given 02/14/2002 DO Not Use Split Influenza Virus Vaccine 05332 Given 02/14/2002 DO Not Use Split Influenza Virus Vaccine For Children 6-35 Months 31317 Given 01/24/2001 DO Not Use Split Influenza Virus Vaccine 21518 Given 01/08/2000 DO Not Use Split Influenza Virus Vaccine 32996 Given 01/17/1999 DO Not Use Split Influenza Virus Vaccine 65086 Given 12/31/1998 Pneumococcal Immunization 95265 Given 01/25/1998 Influenza Immunization 47582 Given 12/13/1997 Td Immunization, For Use In Individuals 7 Years Or Older 19663 Given 01/01/1997 Influenza Immunization Vital Signs Date Vital Result Comment 12/20/2018 1:07pm BP Systolic 118 mmHg BP Diastolic 82 mmHg Heart Rate 72 /min Body Temperature 98.2 F Respiratory Rate 16 /min Weight 125.00 lb 10/25/2018 2:36pm BP Systolic 110 mmHg BP Diastolic 70 mmHg Heart Rate 68 /min Body Temperature 99.6 F Respiratory Rate 16 /min Weight 132.00 lb Results Test Date Facility Test Result H/L Range Note Ua - Micro (a) 10/25/2018 [facility] Medicine Appearance CLOUDY (607)- - Color YELLOW Glucose, Urine (a/[facility]) NEG Bilirubin NEG Ketones NEG SP Grav 1.015 Blood SMALL PH 5.5 Protein TRACE Urobil 0.2 Nitrite POS Leukocytes (a/[facility]rex) LARGE Hyaline - /Lpf Granular - /Lpf WBC (a,[facility]) >75 RBC 3-5 Mucus (a/CBC/[facility]) SM AMT /Lpf Epith FEW /Lpf Bacteria 4+ /Hpf Amorphous (a/[facility]) - /Lpf Crystals, Fluid (a[place] - Urinalysis Profile 08/18/2018 [facility] [place]rine Color Yellow Urine Appearance Cloudy Urine Specific [place] 1.011 Normal 1.010-1.030 Urine pH 5.0 Normal 5-9 Urine Urobilinogen Negative Negative Urine Ketones Negative Negative Urine Protein Negative Negative Urine Leukocytes 3+ Abnormal Negative Urine Blood 1+ Abnormal Negative Urine Nitrite Positive Abnormal Negative Urine Bilirubin Negative Negative Urine Glucose Negative Negative Urine White Blood Cell 3+(>20/hpf) Abnormal Absent Urine Red Blood Cell 2+(6-10/hpf) Abnormal Absent Urine Bacteria 1+ Abnormal Absent Urine Squamous Epithelial Cell Present Abnormal Absent Urine Transitional Epithelial Present Abnormal Absent Urine Hyaline Casts Present Abnormal Absent Urine Culture And 08/18/2018 [facility] [place] Culture SEE RESULT 1 Sensitivities BELOW CBC Auto Diff 08/18/2018 [facility] White Blood 5.0 10^3/uL Normal 3.5-10.8 Count Red Blood Count 4.80 10^6/uL Normal 3.70-4.87 Hemoglobin 15.5 g/dL Normal 12.0-16.0 Hematocrit 46 % Normal 35-47 Mean Corpuscular Volume 96 fL Normal 80-97 Mean Corpuscular Hemoglobin 32 pg High 27-31 Mean Corpuscular HGB Conc 34 g/dL Normal 31-36 Red Cell Distribution Width 14 % Normal 10.5-15 Platelet Count 129 10^3/uL Low 150-450 Mean Platelet Volume 8.8 fL Normal 7.4-10.4 Abs Neutrophils 3.9 10^3/uL Normal 1.5-7.7 Abs Lymphocytes 0.6 10^3/uL Low 1.0-4.8 Abs Monocytes 0.3 10^3/uL Normal 0-0.8 Abs Eosinophils 0.1 10^3/uL Normal 0-0.6 Abs Basophils 0.0 10^3/uL Normal 0-0.2 Abs Nucleated RBC 0.0 10^3/uL Granulocyte % 78.6 % Lymphocyte % 11.5 % Monocyte % 7.0 % Eosinophil % 2.2 % Basophil % 0.7 % Nucleated Red Blood Cells % 0.0 Inr/Protime 08/18/2018 [facility] [place] 0.98 Normal 0.82-1.09 2 Laboratory test 08/18/2018 [facility] Partial Thrombo 34.6 seconds Normal 26.0- 36.3 finding Time PTT Comp Metabolic Panel 08/18/2018 [facility] Sodium 142 mmol/L Normal 135-145 Potassium 3.8 mmol/L Normal 3.5-5.0 Chloride 102 mmol/L Normal 101-111 Co2 Carbon Dioxide 31 mmol/L Normal 22-32 Anion Gap 9 mmol/L Normal 2-11 Glucose 137 mg/dL High 70-100 Blood Urea Nitrogen 27 mg/dL High 6-24 Creatinine 1.25 mg/dL High 0.51-0.95 BUN/Creatinine Ratio 21.6 High 8-20 Calcium 10.4 mg/dL High 8.6-10.3 Total Protein 7.5 g/dL Normal 6.4-8.9 Albumin 4.6 g/dL Normal 3.2-5.2 Globulin 2.9 g/dL Normal 2-4 Albumin/Globulin Ratio 1.6 Normal 1-3 Total Bilirubin 0.90 mg/dL Normal 0.2-1.0 Alkaline Phosphatase 71 U/L Normal 34-104 Alt 8 U/L Normal 7-52 Ast 18 U/L Normal 13-39 Egfr Non- 40.9 >60 Egfr 49.5 >60 3 Laboratory test finding 08/18/2018 [facility] B-Type Natriuretic 205 pg/mL High <=100 Peptide BNP 1 SEE RESULT BELOW Name: TRAN PERKINS : [address]: Daryn Bailey MD Acct: [id number] Unit: [id number] AGE: 82 Location: ED Re08/18/18 SEX: F Status: DEP ER SPEC: [id number] CATHY: 08/18/[address]: Delmy Bailey MD REQ: [id number] RECD: 08/18/18 STATUS: LISA WAGNER DR: Lucien Milligan MD _ SOURCE: URINE SPDESC: ORDERED: Urine Culture Procedure Result Reported Site Urine Culture Final 08/21/18- 08 ML Organism 1 ESCHERICHIA COLI [place] Count >100,000 (Many) CFU/ML 1. ESCHERICHIA COLI M.I.C. RX --------- ------ Ampicillin 8 S Cefazolin <=4 S Cefepime <=1 S Ceftriaxone <=1 S Ciprofloxacin <=0.25 S Gentamicin <=1 S Levofloxacin <=0.12 S Meropenem <=0.25 S Nitrofurantoin <=16 S Tetracycline 2 S Pipercillin/Tazobactam <=4 S Trimethoprim/Sulfamethoxazole <=20 S Amoxicillin/Clavulanic Acid 4 S Aztreonam <=1 S Contact the Microbiology Department for any additional antibiotic reporting. * [facility] - Main Lab . END OF REPORT DEPARTMENT OF PATHOLOGY, [address] [place] [address] Evans Sanders M.D. Director [facility] # [id number] 2 Standard intensity warfarin therapeutic range: 2.0-3.0 High intensity warfarin therapeutic range: 2.5-3.5 3 Because ethnic data is not always readily available, this report includes an eGFR for both -Americans and non- Americans. The National Kidney Disease Education Program (NKDEP) does not endorse the use of the MDRD equation for patients that are not between the ages of 18 and 70, are , have extremes of body size, muscle mass, or nutritional status, or are non- or non-. According to the National Kidney Foundation, irrespective of diagnosis, the stage of the disease is based on the level of kidney function: Stage Description GFR(mL/min/1.73 m(2)) 1 Kidney damage with normal or decreased GFR 90 2 Kidney damage with mild decrease in GFR 60-89 3 Moderate decrease in GFR 30-59 4 Severe decrease in GFR 15-29 5 Kidney failure <15 (or dialysis) Procedures Date Code Description Status 06/02/2011 [id number] Mammogram Completed 01/23/2011 [id number] Colonoscopy Completed 02/10/2010 [id number] Mammogram Completed 09/22/2007 [id number] Mammogram Completed 09/10/2006 [id number] Diabetic Retinal Eye Exam Completed 05/13/2006 897990133 Bone Mineral Density Test Completed 12/03/2005 [id number] Colonoscopy Completed 09/17/2005 [id number] Mammogram Completed Medical Devices Description No Information Available Encounters Type Date Location Provider Dx Diagnosis Office Visit 10/25/2018 [facility] Office Lucien Cortes I10 Essential (primary) 2:20p Mya Milligan hypertension N39.0 Urinary tract infection, site not specified K59.00 Constipation, unspecified J44.9 Chronic obstructive pulmonary disease, unspecified Office Visit 08/22/2018 2:00p Main Office Lucien Milligan, R60.0 Localized edema OsitoDKaz I10 Essential (primary) hypertension N39.0 Urinary tract infection, site not specified R21 Rash and other nonspecific skin eruption Office Visit 08/15/2018 11:40a [facility] Lucien Garnica R60.0 Localized edema MD Denise Assessments Date Code Description Provider 12/20/2018 H10.89 Other conjunctivitis NIK Miller 12/20/2018 R60.0 Localized edema ISIDRO MillerP 12/20/2018 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, NIK Miller stage 2 12/20/2018 H02.105 Unspecified ectropion of left lower Sadia Rodrick, ANALYTICAL STATISTICIAN eyelid 10/25/2018 I10 Essential (primary) hypertension Lucien Milligan M.D. 10/25/2018 N39.0 Urinary tract infection, site not Lucien Milligan M.D. specified 10/25/2018 K59.00 Constipation, unspecified Lucien Milligan M.D. 10/25/2018 J44.9 Chronic obstructive pulmonary disease, Lucien Milligan M.D. unspecified 08/22/2018 R60.0 Localized edema Lucien Milligan M.D. 08/22/2018 I10 Essential (primary) hypertension Lucien Milligan M.D. 08/22/2018 N39.0 Urinary tract infection, site not Lucien Milligan M.D. specified 08/22/2018 R21 Rash and other nonspecific skin eruption Lucien Milligan M.D. 08/15/2018 R60.0 Localized edema Lucien Walker MD Plan of Treatment Future Appointment(s):01/03/2019 9:40 am - Lucien Mill[facility] M.D[facility] at [facility]12/20/2018 - Sadia Mensah, FNPH10.89 Other rsirdklulcnpdmW09.0 Localized gdklrO49.302 Pressure ulcer of unspecified buttock , stage 2H02.105 Unspecified ectropion of left lower eyelidAllComments: Medication Management Patient Understands medications he 's taking? Yes No Are there Barriers to Adherence? Yes No Has the patient been asked about herbal supplements and therapies, and[facility] med[facility]? Yes No As always, we strongly encourage a healthy diet and making physical activity a part of your every day life. If you have questions about how or where to start, please contact the office. Functional Status Description No Information Available Mental Status Description No Information Available Referrals Description No Information Available
[2019-01-23 10:32] VITALS: BP 117/70
--- NOTE | 2019-01-23 11:26 | UC ---
Eye Complaint HPI - HPI Summary HPI Summary: 83-year-old woman comes in with a chief complaint of right upper eyelid swelling and eye discharge. Been going on for several days. She has a history of styes in the past she's been using antibiotic eyedrops she's run out of the antibiotic eyedrops. Also using warm moist compresses. No upper respiratory tract infection symptoms. - History of Current Complaint Chief Complaint: UCEye Stated Complaint: EYE ISSUE Time Seen by Provider: 01/23/19 11:08 Pain Intensity: 5 - Allergies/Home Medications Allergies/Adverse Reactions: Allergies Allergy/AdvReac Type Severity Reaction Status Date / Time EDIE Inhibitors Allergy Unknown Verified 01/23/19 10:33 Reaction Details amiodarone Allergy Unknown Verified 01/23/19 10:33 Reaction Details codeine Allergy Nausea And Verified 01/23/19 10:33 Vomiting hydrocodone Allergy Nausea And Verified 01/23/19 10:33 Vomiting Iodinated Contrast Media Allergy Swelling Verified 01/23/19 10:33 [Iodinated Contrast- Oral and IV Dye] lisinopril Allergy Swelling Verified 01/23/19 10:33 Macrolide Antibiotics Allergy Unknown Verified 01/23/19 10:33 Reaction Details metoprolol Allergy Fatigue Verified 01/23/19 10:33 morphine Allergy Unknown Verified 01/23/19 10:33 Reaction Details oxycodone Allergy Nausea And Verified 01/23/19 10:33 Vomiting pimecrolimus Allergy Unknown Verified 01/23/19 10:33 Reaction Details sirolimus Allergy Unknown Verified 01/23/19 10:33 Reaction Details tacrolimus Allergy Unknown Verified 01/23/19 10:33 Reaction Details tramadol Allergy Swelling Verified 01/23/19 10:33 zolpidem Allergy See Comment Verified 01/23/19 10:33 Home Medications: Home Medications Acetaminophen [APAP] 325 mg PO DAILY 01/23/19 [History Confirmed 01/23/19] PMH/Surg Hx/FS Hx/Imm Hx Previously Healthy: Yes Cardiovascular History: Cardiac Disease, Hypertension Respiratory History: COPD Other History Of: Negative For: Anticoagulant Therapy - Surgical History Surgical History: Yes Surgery Procedure, Year, and Place: double bypass in 2008, back surgery; gallbladder and appendix - Family History Known Family History: Positive: Cardiac Disease - Social History Alcohol Use: Daily Alcohol Amount: WINE WITH DINNER Substance Use Type: None Smoking Status (MU): Former Smoker Type: Cigarettes Length of Time of Smoking/Using Tobacco: 20 Have You Smoked in the Last Year: No When Did the Patient Quit Smoking/Using Tobacco: 8 yrs ago - Immunization History Most Recent Tetanus Shot: Dr Milligan's office - UTD Review of Systems All Other Systems Reviewed And Are Negative: Yes Constitutional: Positive: Negative Skin: Positive: Other - see hpi Eyes: Positive: Drainage, Other - see hpi ENT: Positive: Negative Respiratory: Positive: Negative Cardiovascular: Positive: Negative Gastrointestinal: Positive: Negative Motor: Positive: Negative Neurovascular: Positive: Negative Musculoskeletal: Positive: Negative Neurological: Positive: Negative Psychological: Positive: Negative Is Patient Immunocompromised?: No Physical Exam Triage Information Reviewed: Yes Appearance: Well-Appearing, No Pain Distress, Well-Nourished Vital Signs: Initial Vital Signs Temp 99.4 F 01/23/19 10:22 Pulse 63 01/23/19 10:22 Resp 18 01/23/19 10:22 BP 117/70 01/23/19 10:22 Pulse Ox 97 01/23/19 10:22 Vital Signs Reviewed: Yes Eyes: Positive: Conjunctiva Inflamed - rt, Discharge, Other: - On the right upper eyelid there is swelling consistent with a stye. ENT: Negative: Nasal congestion, Nasal drainage Neck: Positive: Supple Respiratory: Positive: Lungs clear, Normal breath sounds, No respiratory distress Cardiovascular: Positive: RRR Musculoskeletal: Positive: Strength Intact, ROM Intact Neurological: Positive: Alert Psychological: Positive: Normal Response To Family, Age Appropriate Behavior Skin Exam: Normal Eye Complaint Course/Dx - Differential Dx/Diagnosis Provider Diagnosis: [facility] Discharge ED - Sign-Out/Discharge Documenting (check all that apply): Patient Departure All imaging exams completed and their final reports reviewed: No Studies - Discharge Plan Condition: Stable Disposition: HOME Prescriptions: Tobramycin 0.3% OPHTH.JUAN JOSE* 1 drop RIGHT EYE Q4H #1 btl Patient Education Materials: [facility] (ED) Referrals: Lucien Milligan MD [Primary Care Provider] - Additional Instructions: FOLLOW UP WITH YOUR DOCTOR IF NOT COMPLETELY IMPROVED. GET RECHECKED SOONER IF YOUR CONDITION WORSENS OR ANY QUESTIONS OR CONCERNS. - Billing Disposition and Condition Condition: STABLE Disposition: Home
== END 2019-01-23 11:29 | disposition home or self-care (01) ==
LOC: UCEAST 10:17
DX: H00.011 Hordeolum externum right upper eyelid (principal); I10 Essential (primary) hypertension; J44.9 Chronic obstructive pulmonary disease, unspecified; Z88.5 Allergy status to narcotic agent; Z88.8 Allergy status to other drugs, medicaments and biological substances; Z88.1 Allergy status to other antibiotic agents; Z91.041 Radiographic dye allergy status; Z87.891 Personal history of nicotine dependence
CPT/HCPCS: 99212; G0463

== ENCOUNTER 2019-02-13 15:26 | Inpatient (IN) | payer MEDICARE, OTHER ==
--- OUTSIDE RECORDS SUMMARY | 2019-02-13 15:39 | XMS REPORT | Continuity of Care Document ---
:1935 External Reference #:[id number] Author Name ASHIA Sanchez Address [address] [place] [address] Care Team Providers Name Role Phone [facility] - Diagnostic Care Team Information Licensed Guide Radiology Jeff Mckeon MD - Cardiovascular Care Team Information Licensed Guide Disease Iqra Harris MD - Facial Plastic Care Team Information Licensed Guide [phone] Surgery Ta Vinson MD - Gastroenterology Care Team Information Licensed Guide Ole Daniel - Pain Care Team Information Licensed Guide [phone] Problems Active Problems Provider Date Essential hypertension [...] since teenager; Unknown quit 8 years ago Smoking Status Reviewed: 02/13/19 Former Cigarette Smoker 1ppd since teenager; quit 8 years ago Tobacco Use Start: [...] as needed Celecoxib Take 1 Capsule By gissel Mccullough 09/14/2017 200mg Mouth Every Day Rodrick, [employer] Capsules Advair Diskus Inhale 1 puff By 60units Lucien Cortes 09/04/2017 Mouth Two Times Mya Milligan 250-50mcg/Dose Daily - Rinse Aerosol Mouth Well After Each Use Ventolin HFA take 1-2 puffs 8gm R05 Lucila C. 08/05/2017 inhaled every 4 FRANCESCA Hernandez 108(90Base) mcg/Act hours as needed Aerosol for wheezing or tightness in the chest Aerochamber Plus dispense one for 5 Sadia 08/02/2017 use with albuterol Rodrick, [employer] Misc inhaler Lasix 3 by mouth every 90tabs Lucien Cortes 07/20/2017 20mg Tablets in the morning Mya Milligan Fish Oil take one capsule 30capbeba Cortes 12/18/2016 1000mg by mouth every day Mya Milligan Capsules ([employer] [facility]) Nitrostat 1 under tongue as 25tabs Lucien Cortes 03/13/2014 0.4mg needed repeat Mya Milligan Tablets Sub every 5 minutes upto 3 tabs,call 911. Vitamin D3 Maximum daily Lucien Cortes 03/13/2014 Hawa Milligan M.D. 5000Unit Capsules Imodium A-D 2 capsules by [...] CPT Code Status Date Vaccine Lot # [id number] Given 01/03/2019 High-Dose, Influenza Virus Vacccine-fluzone 65 [id number] and older 10342 Given 12/17/2017 Influenza Vac, Quad[place], [place] [address] Given 01/08/2016 High-Dose, Influenza Virus Vacccine-fluzone 65 [id number] and older 53067 Given 01/08/2015 Pneumococcal Conjugate Vacc-13 [id number] 92461 Given 01/08/2015 High-Dose, Influenza Virus Vacccine-fluzone 65 [id number] and older 48154 Given 01/19/2012 High-Dose, Influenza Virus Vacccine-fluzone 65 [id number] and older 71262 Given 12/27/2010 DO Not Use Split Influenza Virus Vaccine 02261 Given 08/06/2008 Pneumococcal Immunization [id number] 66155 Given 01/25/2007 DO Not Use Split Influenza Virus Vaccine [id number] 79418 Given 12/20/2006 Tetanus And Diptheria Adult Preservative Free [id number] >7Yrs 65414 Given 06/15/2006 Zostivax [id number] 79729 Given 02/08/2006 DO Not Use Split Influenza Virus Vaccine [id number] 62786 Given 02/09/2005 DO Not Use Split Influenza Virus Vaccine 16534 Given 01/24/2004 Influenza Virus Vaccine, Live For Intranasla Use 73192 Given 01/03/2003 DO Not Use Split Influenza Virus Vaccine 47004 Given 01/03/2003 DO Not Use Split Influenza Virus Vaccine 94162 Given 02/14/2002 DO Not Use Split Influenza Virus Vaccine 14853 Given 02/14/2002 DO Not Use Split Influenza Virus Vaccine For Children 6-35 Months 14474 Given 01/24/2001 DO Not Use Split Influenza Virus Vaccine 46345 Given 01/08/2000 DO Not Use Split Influenza Virus Vaccine 61511 Given 01/17/1999 DO Not Use Split Influenza Virus Vaccine 39421 Given 12/31/1998 Pneumococcal Immunization 46104 Given 01/25/1998 Influenza Immunization 10748 Given 12/13/1997 Td Immunization, For Use In Individuals 7 Years Or Older 72936 Given 01/01/1997 Influenza Immunization Vital Signs Date Vital Result Comment 02/13/2019 1:08pm BP Systolic 104 mmHg BP Diastolic 60 mmHg Heart Rate 52 /min Body Temperature 97.0 F Respiratory Rate 16 /min O2 % BldC Oximetry 93 % Height 67 inches 5'7" Weight 132.00 lb BMI (Body Mass Index) 20.7 kg/m2 01/03/2019 9:40am BP Systolic 138 mmHg BP Diastolic 78 mmHg Heart Rate 58 /min Body Temperature 98.1 F Respiratory Rate 17 /min Height 67 inches 5'7" Weight 126.00 lb BMI (Body Mass Index) 19.7 kg/m2 Results Test Date Facility Test Result H/L Range Note Laboratory test 02/13/2019 [facility] Brain Natural <pending> <100 finding (607)- - Peptide pg/mL Ua - Micro (Fma) 02/13/2019 [facility] Medicine Appearance <pending> (607)- - Color <pending> Glucose, Urine (Fma/CMC/CTX) <pending> Bilirubin <pending> Ketones <pending> SP Grav <pending> Blood <pending> PH <pending> Protein <pending> Urobil <pending> Nitrite <pending> Leukocytes (Fma/CMC/Centrex) <pending> Hyaline <pending> /Lpf Granular <pending> /Lpf WBC (Fma,Centrex) <pending> RBC <pending> Mucus (Fma/CBC/Centrex) <pending> /Lpf Epith <pending> /Lpf Bacteria <pending> /Hpf Amorphous (Fma/CMC/Centrex) <pending> /Lpf Crystals, Fluid (Fma/CMC/CTX) <pending> Z#Comments <pending> Basic Metabolic Profile 01/03/2019 [facility]) Sodium 144 mEq/L 134-149 Potassium 3.8 mEq/L 3.6-5.5 Chloride 102 mEq/L 94-112 Carbon Dioxide 27 mEq/L 21-32 Glucose 115 mg/dL High 70-105 BUN 25 mg/dL 6-26 Creatinine 1.2 mg/dL 0.6-1.4 BUN/Creat Ratio 20.8 CALC 8.0-36.0 Calcium 10.1 mg/dL 8.6-10.2 GFR Non- 45 ml/min/1.73m^ Low >=60 GFR 55 ml/min/1.73m^ Low >=60 Ua - Micro ([facility]) 10/25/2018 [facility] Appearance CLOUDY (607)- - Color YELLOW Glucose, Urine (Fma/CMC/CTX) NEG Bilirubin NEG Ketones NEG SP Grav 1.015 Blood SMALL PH 5.5 Protein TRACE Urobil 0.2 Nitrite POS Leukocytes (a/CMC/Centrex) LARGE Hyaline - /Lpf Granular - /Lpf WBC (a,Centrex) >75 RBC 3-5 Mucus (a/CBC/Centrex) SM AMT /Lpf Epith FEW /Lpf Bacteria 4+ /Hpf Amorphous (Fma/CMC/Centrex) - /Lpf Crystals, Fluid (Fma/CMC/CTX) - Urinalysis Profile 08/18/[address] [facility] Urine Color Yellow Urine Appearance Cloudy Urine Specific [place] 1.011 Normal 1.010-1.030 Urine pH 5.0 Normal [...] Present Abnormal Absent Urine Culture And 08/18/[address] [facility] Urine Culture SEE RESULT 1 Sensitivities BELOW CBC Auto Diff 08/18/[address] [facility] White Blood 5.0 10^3/uL Normal 3.5-10.8 Count [...] Red Blood Cells % 0.0 Inr/Protime 08/18/[address] [facility] Inr 0.98 Normal 0.82-1.09 2 Laboratory test 08/18/[address] [facility] Partial Thrombo 34.6 seconds Normal 26.0- 36.3 finding Time PTT Comp Metabolic Panel 08/18/[address] [facility] Sodium 142 mmol/L Normal 135-145 Potassium 3.8 [...] [address]: Daryn Bailey MD Acct: [id number] Unit: [id number] AGE: 82 Location: ED Re08/18/18 SEX: F Status: DEP ER SPEC: [id number] CATHY: 08/18/[address] [facility] [address]: Delmy Bailey MD REQ: [id number] RECD: 08/18/18 STATUS: LISA WAGNER DR: Lucien Milligan MD _ SOURCE: URINE SPDESC: ORDERED: Urine Culture Procedure Result Reported Site Urine Culture Final 08/21/18- 0844 ML Organism 1 ESCHERICHIA COLI [place] Count >100,000 (Many) CFU/ML 1. ESCHERICHIA COLI [...] . END OF REPORT DEPARTMENT OF PATHOLOGY, [address] [place] [address] Evans Sanders M.D. Director [facility] # [id number] 2 Standard intensity warfarin therapeutic range: 2.0-3.0 [...] dialysis) Procedures Date Code Description Status 06/02/2011 69958649 Mammogram Completed 01/23/2011 [id number] Colonoscopy Completed 02/10/2010 [id number] Mammogram Completed 09/22/2007 [id number] Mammogram Completed 09/10/2006 148596521 Diabetic Retinal Eye Exam Completed 05/13/2006 844609042 Bone Mineral Density Test Completed 12/03/2005 [id number] Colonoscopy Completed 09/17/2005 [id number] Mammogram Completed Medical Devices Description No Information Available Encounters Type Date Location Provider Dx Diagnosis Office Visit 01/03/2019 [facility] Office Lucien Milligan, R60.0 Localized edema 9:40a M.D. 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 Office Visit 10/25/2018 2:20p [place] [facility] Lucien Cortes I10 Essential ( primary) Mya Milligan hypertension N39.0 Urinary tract infection, site not specified K59.00 Constipation, unspecified J44.9 Chronic obstructive pulmonary disease, unspecified Office Visit 08/22/2018 2:00p Main Office Lucien Milligan R60.0 Localized edema M.DKaz I10 Essential (primary) hypertension N39.0 Urinary tract infection, site not specified R21 Rash and other nonspecific skin eruption Office Visit 08/15/2018 11:40a [facility] Lucien Granica R60.0 Localized edema MD Denise Assessments Date Code Description Provider 02/13/2019 R60.0 Localized edema ASHIA Sanchez 02/13/2019 I48.91 Unspecified atrial fibrillation ASHIA Sanchez 01/03/2019 R60.0 Localized edema Lucien Milligan M.D. 01/03/2019 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, Lucien Milligan M.D. stage 2 01/03/2019 I10 Essential (primary) hypertension Lucien Milligan M.D. 01/03/2019 Z23 Encounter for immunization Lucien Milligan M.D. 12/20/2018 H10.89 Other conjunctivitis Sadiaophelia Mensah, [facility] 12/20/2018 R60.0 Localized edema Sadia Mensah, [facility] 12/20/2018 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, Sadia Mensah , [facility] stage 2 12/20/2018 H02.105 Unspecified ectropion of left lower Sadiaophelia Mensah, [facility] eyelid 10/25/2018 I10 Essential (primary) hypertension Lucien [...] Lucien Walker MD Plan of Treatment Future Appointment(s):05/09/2019 9:40 am - Lucien Milligan M.D. at [facility]02/13/2019 - Maddison Garcias, PAR60.0 Localized aixueS39.91 Unspecified atrial fibrillationComments:Patient will be sent to the Emergency room for further evaluation. Sent via [facility].AllComments: PCMHMedication Management Patient Understands medications he's taking? Yes Are there Barriers to Adherence? No Has the patient been asked about herbal supplements and therapies, and OTC meds? Yes Care Plan1. Patient has been queried about patient's goals/preferences and functional/ lifestyle goals at relevant visits. Yes If relevant, describe: N/A2. Treatment goals as explained to the patient: above3. Are there barriers to meeting treatment goals? No If Yes, please describe:4. Self-Management goals as described to the patient: Yes As always, we strongly encourage a healthy diet and making physical activity a part of your every day life. If you have questions about how or where to start, please contact the office. Functional Status Description No Information Available Mental Status Description No Information Available Referrals Refer to Reason for Referral Status Appt Date Visiting Nurse Services Consult and treat. LT Sent [address] [place] [address] [phone]
--- OUTSIDE RECORDS SUMMARY | 2019-02-13 15:40 | XMS REPORT | Continuity of Care Document ---
:1935 External Reference #:[id number] Author Name ASHIA Sanchez Address [address] [place] [address] Care Team Providers Name Role Phone [facility] - Diagnostic Care Team Information Metal Storage Worker [phone] Radiology Jeff Mckeon MD - Cardiovascular Care Team Information Metal Storage Worker [phone] Disease Iqra Harris MD - Facial Plastic Care Team Information Metal Storage Worker Surgery Ta Vinson MD - Gastroenterology Care Team Information Metal Storage Worker Ole Daniel - Pain Care Team Information Metal Storage Worker [phone] Problems Active Problems Provider Date Essential hypertension [...] Mccullough 09/14/2017 200mg Mouth Every Day Rodrick, [employer] Capsules Advair Diskus Inhale 1 puff By [...] 5 Sadia 08/02/2017 use with albuterol Rodrick, [employer] Misc inhaler Lasix 3 by mouth every 90tabs Lucien Cortes 07/20/2017 20mg Tablets in the morning Mya Milligan Fish Oil take one capsule 30capbeba Cortes 12/18/2016 1000mg by mouth every day Mya Milligan Capsules ([employer] [facility]) Nitrostat 1 under tongue as 25tabs [...] CPT Code Status Date Vaccine Lot # [id number] Given 01/03/2019 High-Dose, Influenza Virus Vacccine-fluzone 65 [id number] and older 33142 Given 12/17/2017 Influenza Vac, [place]riv[place], [place] [address] Given 01/08/2016 High-Dose, Influenza Virus Vacccine-fluzone 65 [id number] and older 86092 Given 01/08/2015 Pneumococcal Conjugate Vacc-13 [id number] 36817 Given 01/08/2015 High-Dose, Influenza Virus Vacccine-fluzone 65 [id number] and older 59422 Given 01/19/2012 High-Dose, Influenza Virus Vacccine-fluzone 65 [id number] and older 62610 Given 12/27/2010 DO Not Use Split Influenza Virus Vaccine 92065 Given 08/06/2008 Pneumococcal Immunization [id number] 23502 Given 01/25/2007 DO Not Use Split Influenza Virus Vaccine [id number] 71581 Given 12/20/2006 Tetanus And Diptheria Adult Preservative Free [id number] >7Yrs 25920 Given 06/15/2006 Zostivax [id number] 15395 Given 02/08/2006 DO Not Use Split Influenza Virus Vaccine [id number] 50119 Given 02/09/2005 DO Not Use Split Influenza Virus Vaccine 07822 Given 01/24/2004 Influenza Virus Vaccine, Live For Intranasla Use 27802 Given 01/03/2003 DO Not Use Split Influenza Virus Vaccine 09527 Given 01/03/2003 DO Not Use Split Influenza Virus Vaccine 93042 Given 02/14/2002 DO Not Use Split Influenza Virus Vaccine 56066 Given 02/14/2002 DO Not Use Split Influenza Virus Vaccine For Children 6-35 Months 32906 Given 01/24/2001 DO Not Use Split Influenza Virus Vaccine 95903 Given 01/08/2000 DO Not Use Split Influenza Virus Vaccine 40463 Given 01/17/1999 DO Not Use Split Influenza Virus Vaccine 37505 Given 12/31/1998 Pneumococcal Immunization 05131 Given 01/25/1998 Influenza Immunization 09930 Given 12/13/1997 Td Immunization, For Use In Individuals 7 Years Or Older 79918 Given 01/01/1997 Influenza Immunization Vital Signs Date [...] Date Facility Test Result H/L Range Note Basic Metabolic 01/03/2019 [facility]) Sodium 144 mEq/L 134-149 Profile Potassium 3.8 mEq/L 3.6-5.5 Chloride 102 mEq/L 94-112 Carbon Dioxide 27 mEq/L 21-32 Glucose 115 mg/dL High 70-105 BUN 25 mg/dL 6-26 Creatinine 1.2 mg/dL 0.6-1.4 BUN/Creat Ratio 20.8 CALC 8.0-36.0 Calcium 10.1 mg/dL 8.6-10.2 GFR Non- 45 ml/min/1.73m^ Low >=60 GFR 55 ml/min/1.73m^ Low >=60 Ua - Micro (Fma) 10/25/2018 Family [facility] Appearance CLOUDY (607)- - Color YELLOW Glucose, Urine (Fma/CMC/CTX) NEG Bilirubin NEG Ketones NEG SP Grav 1.015 Blood SMALL PH 5.5 Protein TRACE Urobil 0.2 Nitrite POS Leukocytes (Fma/CMC/Centrex) LARGE Hyaline - /Lpf Granular - /Lpf WBC (a,Centrex) >75 RBC 3-5 Mucus (Fma/CBC/Centrex) SM AMT /Lpf Epith FEW /Lpf Bacteria 4+ /Hpf Amorphous (Fma/CMC/Centrex) - /Lpf Crystals, Fluid (a/CMC/CTX) - Urinalysis Profile 08/18/2018 [facility] Urine Color Yellow Urine Appearance Cloudy Urine Specific [place] 1.011 Normal 1.010-1.030 Urine pH 5.0 Normal [...] Present Abnormal Absent Urine Culture And 08/18/2018 [facility] Urine Culture SEE RESULT 1 Sensitivities BELOW CBC Auto Diff 08/18/2018 [facility] White Blood 5.0 10^3/uL Normal 3.5-10.8 Count [...] Red Blood Cells % 0.0 Inr/Protime 08/18/2018 [facility] Inr 0.98 Normal 0.82-1.09 2 Laboratory test 08/18/2018 [facility] Partial Thrombo 34.6 seconds Normal 26.0- 36.3 finding Time PTT Comp Metabolic Panel 08/18/2018 [facility] Sodium 142 mmol/L Normal 135-145 Potassium 3.8 [...] 49.5 >60 3 Laboratory test finding 08/18/2018 [facility] B-Type Natriuretic 205 pg/mL High <=100 Peptide BNP 1 SEE RESULT BELOW Name: TRAN PERKINS : [address]: Daryn Bailey MD Acct: [id number] Unit: [id number] AGE: 82 Location: ED Re08/18/18 SEX: F Status: DEP ER SPEC: [id number] CATYH: 08/18/[address]: Delmy Bailey MD REQ: [id number] RECD: 08/18/18 STATUS: LISA WAGNER DR: Lucien Milligan MD _ SOURCE: URINE SPDESC: ORDERED: Urine Culture Procedure Result Reported Site Urine Culture Final 08/21/18- 0844 ML Organism 1 ESCHERICHIA COLI [place] Count >100,000 (Many) CFU/ML 1. ESCHERICHIA COLI [...] . END OF REPORT DEPARTMENT OF PATHOLOGY, [address] [place] [address] Evans Sanders M.D. Director [facility] # [id number] 2 Standard intensity warfarin therapeutic range: 2.0-3.0 [...] dialysis) Procedures Date Code Description Status 06/02/2011 [id number] Mammogram Completed 01/23/2011 [id number] Colonoscopy Completed 02/10/2010 [id number] Mammogram Completed 09/22/2007 [id number] Mammogram Completed 09/10/2006 883538388 Diabetic Retinal Eye Exam Completed 05/13/2006 [id number] Bone Mineral Density Test Completed 12/03/2005 [id number] Colonoscopy Completed 09/17/2005 [id number] Mammogram Completed Medical Devices Description No Information Available Encounters Type Date Location Provider Dx Diagnosis Office Visit 01/03/2019 [facility] Lucien Milligan R60.0 Localized edema 9:40a M.DKaz 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, stage 2 I10 Essential (primary) hypertension Z23 Encounter for immunization Office Visit 12/20/2018 1:00p Main Office Sadia H10.89 Other conjunctivitis Rodrick, [employer] R60.0 Localized edema 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, stage 2 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 01/03/2019 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, Lucien Milligan M.D. stage 2 01/03/2019 I10 Essential (primary) hypertension Lucien Milligan M.D. 01/03/2019 Z23 Encounter for immunization Lucien Milligan M.D. 12/20/2018 H10.89 Other conjunctivitis Sadia Rodrick, [employer] 12/20/2018 R60.0 Localized edema Sadia Rodrick, [employer] 12/20/2018 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, Sadiarajat Mensah , [employer] stage 2 12/20/2018 H02.105 Unspecified ectropion of left lower Sadia Rodrick, [employer] eyelid 10/25/2018 I10 Essential (primary) hypertension Lucien [...] 9:40 am - Lucien Milligan M.D. at [facility]02/13/2019 - Maddison Garcias, PAR60.0 Localized edemaNew Labs: Brain Natural Peptide, Ordered: 02/13/19Ua - Micro ([facility]), Ordered: AllComments:PCMHMedication Management Patient Understands medications he's taking? Yes Are there Barriers to Adherence? No Has the patient been asked about herbal supplements and therapies, and OTC meds? Yes Care Plan1. Patient has been queried about patient's goals/preferences and functional/lifestyle goals at relevant visits. Yes If relevant, [...] Nurse Services Consult and treat. LT Sent [address] [place] [phone]
--- NOTE | 2019-02-13 15:47 | ED ---
HPI Cardiac - HPI Summary HPI Summary: Patient is a 83 y/o F presenting to [facility] via EMS with new onset afib. Patient reports that she has been having BLE edema. Patient's intensive care ambulance paramedic reports that she had increased her diauretic medication dose from 2 to 3 tablets. The patient is also reported to have been having intermittent SOB that is worse on exertion. This morning, , the patient had an exacerbation of her BLE edema. catalogue and special products manager brought the patient to PCP office. Patient was noted to be in afib and was sent to ED for evaluation. The care-taker also reports that the patient had an increase of her weight from 122 lbs to 132 lbs. Patient is not on a blood thinner. Pain is denied. She denies any worsening of SOB while lying flat. FMHx of afib is noted. Home medications and allergies are reviewed. - History of Current Complaint Stated Complaint: NEW ONSET A-FIB PER EMS Time Seen by Provider: 02/13/19 15:36 Hx Obtained From: Patient, Family/Land Title Examiner Onset/Duration: Started Days Ago, Still Present, Worse Since Timing: Constant, Lasting Days Current Severity: None - pain denied Pain Scale Used: 0-10 Numeric Aggravating Factor(s): Exertion Associated Signs and Symptoms: Positive: Shortness of Breath, Edema - BLE, Other : - weight gain - Additional Pertinent History Primary Care Physician: DESIRE - Allergy/Home Medications Allergies/Adverse Reactions: Allergies Allergy/AdvReac Type Severity Reaction Status Date / Time EDIE Inhibitors Allergy Unknown Verified 01/23/19 10:33 Reaction Details amiodarone Allergy Unknown Verified 01/23/19 10:33 Reaction Details codeine Allergy Nausea And Verified 01/23/19 10:33 Vomiting hydrocodone Allergy Nausea And Verified 01/23/19 10:33 Vomiting Iodinated Contrast Media Allergy Swelling Verified 01/23/19 10:33 [Iodinated Contrast- Oral and IV Dye] lisinopril Allergy Swelling Verified 01/23/19 10:33 Macrolide Antibiotics Allergy Unknown Verified 01/23/19 10:33 Reaction Details metoprolol Allergy Fatigue Verified 01/23/19 10:33 morphine Allergy Unknown Verified 01/23/19 10:33 Reaction Details oxycodone Allergy Nausea And Verified 01/23/19 10:33 Vomiting pimecrolimus Allergy Unknown Verified 01/23/19 10:33 Reaction Details sirolimus Allergy Unknown Verified 01/23/19 10:33 Reaction Details tacrolimus Allergy Unknown Verified 01/23/19 10:33 Reaction Details tramadol Allergy Swelling Verified 01/23/19 10:33 zolpidem Allergy See Comment Verified 01/23/19 10:33 PMH/Surg Hx/FS Hx/Imm Hx Endocrine/Hematology History: Denies: Hx Anticoagulant Therapy, Hx Diabetes, Hx Thyroid Disease Cardiovascular History: Reports: Other Cardiovascular Problems/Disorders - MITRAL VALVE REPACEMENT Denies: Hx Hypertension, Hx Pacemaker/ICD Respiratory History: Reports: Hx Chronic Obstructive Pulmonary Disease (COPD) Denies: Hx Asthma GI History: Denies: Hx Ulcer History: Denies: Hx Renal Disease Musculoskeletal History: Reports: Hx Osteoporosis Sensory History: Reports: Hx Contacts or Glasses Denies: Hx Hearing Aid Opthamlomology History: Reports: Hx Contacts or Glasses Neurological History: Denies: Hx Dementia, Hx Seizures Psychiatric History: Denies: Hx Substance Abuse - Surgical History Surgery Procedure, Year, and Place: double bypass in 2008, back surgery; gallbladder and appendix - Immunization History Date of Influenza Vaccine: fall 2016 Infectious Disease History: Denies: Hx Clostridium Difficile, Hx Hepatitis, Hx Human Immunodeficiency Virus (HIV), Hx of Known/Suspected MRSA, Hx Shingles, Hx Tuberculosis, Hx Known/ Suspected VRE, Hx Known/Suspected VRSA, History Other Infectious Disease, Traveled Outside the [place] in Last 30 Days - Family History Known Family History: Positive: Cardiac Disease - Social History Alcohol Use: Daily Alcohol Amount: WINE WITH DINNER Hx Substance Use: No Substance Use Type: Reports: None Hx Tobacco Use: Yes Smoking Status (MU): Former Smoker Type: Cigarettes Length of Time of Smoking/Using Tobacco: 20 Have You Smoked in the Last Year: No Review of Systems Constitutional: Other - positive - weight gain Positive: Shortness Of Breath Positive: Edema All Other Systems Reviewed And Are Negative: Yes Physical Exam - Summary Physical Exam Summary: Appearance: The patient is well-nourished in no acute distress and in no acute pain. Skin: The skin is warm and dry, and skin color reflects adequate perfusion. HEENT: The head is normocephalic and atraumatic. The pupils are equal and reactive. The conjunctivae are clear and without drainage. Nares are patent and without drainage. Mouth reveals moist mucous membranes, and the throat is without erythema and exudate. The external ears are intact. The ear canals are patent and without drainage. The tympanic membranes are intact. Neck: The neck is supple with full range of motion and non-tender. There are no carotid bruits. There is no neck vein distension. Respiratory: Chest is non-tender. Lungs are clear to auscultation and breath sounds are symmetrical and equal. Cardiovascular: Heart is irregularly irregular. There is no murmur or rub auscultated. There is BLE pitting edema. Pulses are symmetrical and equal. Abdomen: The abdomen is soft and non-tender. There are normal bowel sounds heard in all four quadrants and there is no organomegaly palpated. Musculoskeletal: Pitting BLE edema is noted. There is no back tenderness noted. Extremities are non-tender with full range of motion. There is good capillary refill. There is no calf tenderness elicited. Neurological: Patient is alert and oriented to person, place and time. The patient has symmetrical motor strength in all four extremities. Cranial nerves are grossly intact. Deep tendon reflexes are symmetrical and equal in all four extremities. Psychiatric: The patient has an appropriate affect and does not exhibit any anxiety or depression. Triage Information Reviewed: Yes Vital Signs Reviewed: Yes Procedures - Sedation Patient Received Moderate/Deep Sedation with Procedure: No Diagnostics - Laboratory Result Diagrams: 02/13/19 16:39 02/13/19 16:39 Lab Statement: Any lab studies that have been ordered have been reviewed, and results considered in the medical decision making process. - Radiology CXR Radiology Interpretation Completed By: Radiologist Summary of Radiographic Findings: IMPRESSION: 1. HYPERINFLATION. 2. CARDIOMEGALY. THIS REPORT WAS REVIEWED BY DR. MCCARTHY. - EKG 1556 Cardiac Rate: Other Rate - afib with rate of 67 BPM EKG Rhythm: Atrial Fibrillation Ectopy: PVCs Summary of EKG Findings: EKG showed afib with rate of 67 BPM, PVCs. This EKG was reviewed and interpreted by Dr. Mccarthy. Re-Evaluation - Re-Evaluation First Eval Re-Evaluation Time: 19:12 Comment: With ambulation from bed to stretcher, patient's o2 sat dropped to 87%. Disposition - Course Course Of Treatment: Ms. Reyes presented complaining of increased shortness of breath especially with exertion. She also had swelling of her ankles. She went to her doctor's and was found to be a new onset atrial fibrillation was sent over here. Her lab and x-ray evaluation here revealed her to be reasonably stable. She was in atrial fibrillation with a controlled response. She dropped her pulse ox down when ambulated. She was given a dose of Lasix in the hospitalist service was contacted for evaluation the hospital. - Diagnoses Provider Diagnoses: Atrial fibrillation, new onset, Pulmonary edema - Critical Care Time Critical Care Time: 30-74 min Discharge ED - Sign-Out/Discharge Documenting (check all that apply): Patient Departure - Discharge Plan Condition: Stable Disposition: ADMITTED TO [facility] Referrals: Lucien Milligan MD [Primary Care Provider] - - Billing Disposition and Condition Condition: STABLE Disposition: Admitted to [facility] - Attestation Statements Document Initiated by Vee: Yes Documenting Scribe: Tc Madrid Provider For Whom Vee is Documenting (Include Credential): Srinath Lala Attestation: Tc Carrillo, scribed for Srinath Mccarthy on 02/13/19 at 2100. Scribe Documentation Reviewed: Yes Provider Attestation: The documentation as recorded by the Tc lala accurately reflects the service I personally performed and the decisions made by Srinath andino Status of Scribe Document: Viewed
[2019-02-13 16:48] LABS: ABS Basophils 0.1 10^3/ul (0-0.2); ABS Eosinophils 0.1 10^3/ul (0-0.6); ABS Lymphocytes 0.9 10^3/ul (1.0-4.8); ABS Monocytes 0.5 10^3/ul (0-0.8); ABS Neutrophils 3.4 10^3/ul (1.5-7.7); Eosinophil % 1.4 %; Hematocrit 43 % (35-47); Hemoglobin 14.5 g/dL (12.0-16.0); Lymphocyte % 18.7 %; Mean Corpuscular HGB Conc 34 g/dL (31-36); Mean Corpuscular Hemoglobin 33 pg (27-31); Mean Corpuscular Volume 97 fL (80-97); Mean Platelet Volume 8.5 fL (7.4-10.4); Nucleated Red Blood Cells % 0.1; Platelet Count 120 10^3/uL (150-450); Red Blood Count 4.46 10^6 /uL (3.70-4.87); Red Cell Distribution Width 14 % (10-15); White Blood Count 4.9 10^3/uL (3.5-10.8)
[2019-02-13 17:05] LABS: INR 0.97 (0.82-1.09)
[2019-02-13 17:34] LABS: ALT 9 U/L (7-52); AST 19 U/L (13-39); Albumin/Globulin Ratio 1.5 (1-3); Alkaline Phosphatase 61 U/L (34-104); Anion Gap 9 mmol/L (2-11); BUN/Creatinine Ratio 25.9 (8-20); Blood Urea Nitrogen 30 mg/dL (6-24); C Reactive Protein < 1.00 mg/L (<8.01); CO2 Carbon Dioxide 28 mmol/L (22-32); Calcium 9.5 mg/dL (8.6-10.3); Chloride 106 mmol/L (101-111); EGFR African American 53.9 (>60); EGFR Non-African American 44.5 (>60); Globulin 2.7 g/dL (2-4); Glucose 89 mg/dL (70-100); Potassium 3.9 mmol/L (3.5-5.0); Sodium 143 mmol/L (135-145); Total Protein 6.7 g/dL (6.4-8.9)
[2019-02-13] MEDS ORDERED: Furosemide IV* 10 MG/ML VIAL (40 MG) IV SLOW PU ONE (19:15)
[2019-02-13] MEDS ORDERED: Ondansetron INJ* 2 MG/ML VIAL IV PRN (20:25)
[2019-02-13 20:59] LABS: Urine Appearance Cloudy; Urine Bacteria 1+ (Absent); Urine Bilirubin Negative (Negative); Urine Blood 1+ (Negative); Urine Color Yellow; Urine Glucose Negative (Negative); Urine Ketones Negative (Negative); Urine Nitrite Positive (Negative); Urine Protein Negative (Negative); Urine Red Blood Cell Trace(0-2/hpf) (Absent); Urine Specific Gravity 1.008 (1.010-1.030); Urine Squamous Epithelial Cell Present (Absent); Urine Urobilinogen Negative (Negative); Urine White Blood Cell 3+(>20/hpf) (Absent)
[2019-02-13] MEDS ORDERED: Melatonin 3 MG TAB PO PRN (21:00)
[2019-02-13] MEDS ORDERED: Apixaban* 5 MG TAB PO SCH (21:00)
--- NOTE | 2019-02-13 22:39 | HP ---
CC: Dr. Lucien Milligan; Dr. Jeff Mckeon * ADMISSION HISTORY AND PHYSICAL: DATE OF ADMISSION: 02/13/19 PRIMARY CARE PROVIDER: Dr. Lucien Milligan. MY ATTENDING WHILE IN THE HOSPITAL: Dr. Ezequiel Munguia.* (DICTATED BY ASHIA DEVINE) OUTPATIENT OPERATIONS TEAM LEADER: Dr. Jeff Mckeon. CHIEF COMPLAINT: Increased lower extremity swelling, weight gain, shortness of breath x3 weeks. HISTORY OF PRESENT ILLNESS: Ms. Charline Reyes is an 83-year-old female with past medical history significant for hypertension, coronary artery disease and remote history of postoperative atrial fibrillation, who presented to the emergency department after approximately 3 weeks ago she began to feel more fatigued and get more short of breath. The patient had no functional limitations per her aide's report and that they used to be able to walk all day without her getting short of breath and at this point, she is not able to walk over approximately 50 feet without having to stop to rest due to dyspnea. The patient also has had worsening swelling in her legs with tenderness and erythema. The patient is on Lasix, initially was at 20 mg daily, now she is up to 60 mg daily and has not had a significant change in her lower extremity edema. The patient has had no chest pain with this, but occasionally does feel dizzy when she is ambulating. The patient denies fevers or chills. The patient has had no chest pain. The patient states her breathing is worse when she lies flat. The patient has had no diarrhea, abdominal pain. The patient has no palpitations, but states she has had them when she was younger, but cannot elucidate on this. The patient does not fall frequently. She intermittently walks with her aide and holds her arm when she walks, and the patient has never had a history of a GI bleed. The patient has no increased urinary frequency, no dysuria, no hematuria, but due to concern for shortness of breath the patient was referred to her primary care provider's nurse practitioner office today and there she was found to be in atrial fibrillation and have a urinalysis consistent with urinary tract infection and was referred to the emergency department for treatment. In the emergency department, the patient was given one dose of IV Lasix and was found to desaturate while walking and we were asked to evaluate the patient for admission to the hospital due to these concerns. The patient has had no recent long immobilization, no trips and no history of blood clots. PAST MEDICAL HISTORY: Hypertension, coronary artery disease, history of postoperative atrial fibrillation, depression, COPD, osteoporosis, diverticulitis, mild cognitive impairment. PAST SURGICAL HISTORY: Mitral valve repair, two-vessel CABG. MEDICATIONS: 1. Celebrex 100 mg p.o. daily. 2. Lasix 60 mg p.o. daily. 3. Vitamin D 1000 units p.o. daily. 4. Fish oil 1000 mg p.o. daily. 5. Tylenol 325 mg p.o. daily. ALLERGIES: EDIE INHIBITORS, AMIODARONE, CODEINE, HYDROCODONE, IV CONTRAST, LISINOPRIL, MACROLIDES, METOPROLOL, MORPHINE, OXYCODONE, PIMECROLIMUS, SIROLIMUS , TACROLIMUS, TRAMADOL, ZOLPIDEM. FAMILY HISTORY: Both the patient's parents and her brother of heart disease. The patient has a brother who is alive and also has heart disease of unknown type. SOCIAL HISTORY: The patient smoked from when she was 13 to the mid 20s. The patient has a glass of wine daily. The patient denies illicit drug use. 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 The patient has 2 daughters. The patient still lives in [place] and her surrogate decision maker will be her aide, Honey Weir. REVIEW OF SYSTEMS: A 10-point review of systems was reviewed and is negative except as above in the HPI. PHYSICAL EXAMINATION GENERAL: The patient is an 83-year-old female, who appears stated age and sitting in the bed, in no acute distress. VITAL SIGNS: Temperature 97.3, pulse rate 72, respiratory rate 21, oxygen saturation 92% on room air, blood pressure 112/85. HEENT: Head: Normocephalic, atraumatic. Sclerae anicteric. No conjunctival injection. Nasal mucosa moist. Oral mucosa moist. No pharyngeal erythema, discharge, or exudate. NECK: Supple, nontender. No lymphadenopathy. No carotid bruits auscultated. No JVD. RESPIRATORY: Clear to auscultation bilaterally. No wheezes, rales, or rhonchi. Good air exchange bilaterally. CARDIAC: Irregularly irregular rhythm. No clicks, murmurs, gallops, or rubs. Pulses are 2+ in the bilateral dorsalis pedis, posterior tibialis, and radial areas. Bilateral calf tenderness with 2+ lower extremity edema. ABDOMEN: Soft, nontender, nondistended. Bowel sounds present and normoactive in all 4 quadrants. No hepatosplenomegaly. No abdominal bruits auscultated. No hepatojugular reflux. GENITOURINARY: No suprapubic tenderness. No CVA tenderness. NEURO: Cranial nerves II through XII intact. No focal deficits. Alert and oriented x3, but sometimes forgetful. PSYCHIATRIC: Pleasant and cooperative. SKIN: Clean, dry, and intact. Chronic venous stasis changes of bilateral lower extremities. DIAGNOSTIC STUDIES/LAB DATA: White blood cell count 4.9, hemoglobin 14.5, platelet count 120,000. INR 0.97. Sodium 143, potassium 3.9, chloride 106, carbon dioxide 28, anion gap 9, creatinine 1.16, glucose 89, lactic acid 0.9, calcium 9.5. Bilirubin 0.6, AST 19, ALT 9, alkaline phosphatase 61. Troponin 0.00. CRP less than 1. BNP 299. Protein 6.7, albumin 4.0, globulin 2.7. Studies: Chest x-ray read as hyperinflation and cardiomegaly. EKG shows atrial fibrillation, rate of 67, 2 PVCs present, QTc of 434. No ST segment elevation or depression. No hypertrophy or enlargement. Right axis deviation. Compared to previous exam, atrial fibrillation is new. ASSESSMENT AND PLAN: Impression: Ms. Reyes is an 83-year-old female with past medical history significant for hypertension, coronary artery disease, one episode of postoperative atrial fibrillation as well as mild cognitive impairment, who presents to the emergency department with a 3-week history of worsening shortness of breath on exertion, lower extremity edema with recurrent atrial fibrillation and congestive heart failure, who will be admitted for diuresis and optimization of atrial fibrillation care. 1. New onset atrial fibrillation. The patient's rate is controlled off of medications. This patient will not be started on rate control medication. The patient will be started on Eliquis. The patient's CHADS-VASc score is 6 and her HAS-BLED score is 2 indicating a much higher risk of stroke than bleeding. The patient has not fallen recently. The risks and benefits of treatment were discussed with the patient and she opted for treatment. The patient will be started on Eliquis 5 mg p.o. b.i.d. The patient's atrial fibrillation may be contributing to her heart failure. If the patient is unable to be optimized on her heart failure regimen while she is in atrial fibrillation, a cardioversion may be considered, though based on her age this might not be a successful procedure. 2. Heart failure. Unknown ejection fraction. The patient will have an echocardiogram tomorrow. The patient will be diuresed with Lasix 40 mg p.o. b.i.d. The patient has not responded to dose escalation of her home oral Lasix. Again, if the patient is unable to be optimized while in atrial fibrillation, cardioversion may be considered for this. If the patient had a low ejection fraction, then the patient should be treated with beta-blockers, EDIE INHIBITORS and spironolactone as tolerated, though the patient does have an EDIE INHIBITOR allergy. 3. Coronary artery disease. The patient is not on aspirin for unclear reason. We will not start this at this time as the patient is started on Eliquis. The patient should follow up for routine care and secondary prevention of myocardial infarction with her primary care provider and primary filler operator. 4. Chronic obstructive pulmonary disease. The patient is not in exacerbation. The patient does not have an inhaler and does not need one for a long period of time. 5. DVT prophylaxis: The patient will be started on Eliquis. 6. FEN: The patient will have a heart healthy diet without caffeine. Fluids not indicated at this time. 7. Disposition: The patient is admitted to observation in the hospital. TIME SPENT: Approximately 60 minutes were spent on the admission of this patient, 30 of which was spent [id number] with the patient obtaining history and physical and discussing treatment plan. This plan was discussed with my attending, Dr. Ezequiel Munguia, and he is in agreement. ASHIA DEVINE [id number]/CPS #: [id number] MTDD
[2019-02-13] MEDS: cefTRIAXone(*) 1 GM in NS 0.9% 50 ML* 50 ML IVPB SCH (23:07)
[2019-02-14] MEDS: Apixaban* 2.5 MG TAB PO SCH ×3 (00:10→20:06)
[2019-02-14 05:50] LABS: ABS Eosinophils 0.1 10^3/ul (0-0.6); ABS Monocytes 0.6 10^3/ul (0-0.8); ABS Neutrophils 4.8 10^3/ul (1.5-7.7); Eosinophil % 2.2 %; Hematocrit 41 % (35-47); Hemoglobin 13.8 g/dL (12.0-16.0); Lymphocyte % 14.8 %; Mean Corpuscular HGB Conc 34 g/dL (31-36); Mean Corpuscular Hemoglobin 32 pg (27-31); Mean Corpuscular Volume 96 fL (80-97); Mean Platelet Volume 8.3 fL (7.4-10.4); Platelet Count 116 10^3/uL (150-450); Red Blood Count 4.25 10^6 /uL (3.70-4.87); Red Cell Distribution Width 14 % (10-15); White Blood Count 6.5 10^3/uL (3.5-10.8)
[2019-02-14 05:52] LABS: BUN/Creatinine Ratio 24.6 (8-20); Calcium 9.1 mg/dL (8.6-10.3); EGFR African American 54.9 (>60); EGFR Non-African American 45.4 (>60); Magnesium 1.9 mg/dL (1.9-2.7); Potassium 3.5 mmol/L (3.5-5.0)
[2019-02-14 06:09] LABS: TSH (Thyroid Stimulating Horm) 3.65 mcIU/mL (0.34-5.60)
[2019-02-14] MEDS ORDERED: OMEGA-3 FATTY ACIDS (NF) 1,000 MG CAP PO SCH (09:00)
[2019-02-14] MEDS ORDERED: celeCOXIB CAP* 100 MG PO SCH ×2 (09:00)
[2019-02-14] MEDS: CMCS:OMEGA-3 FATTY ACIDS (NF) 1,000 MG CAP PO SCH (09:40)
[2019-02-14] MEDS: Furosemide IV* 10 MG/ML VIAL (40 MG) IV SLOW PU SCH ×2 (09:40→17:14)
[2019-02-14] MEDS: Cholecalciferol TAB* 1000 UNITS PO SCH (09:43)
--- NOTE | 2019-02-14 12:19 | PN ---
Subjective Date of Service: 02/14/19 Interval History: Ms. Reyes c/o GUIDO, PND, b/l LE edema, which has decreased with IV lasix administration. She states she was up walking hallways and did not feel SOB. She feels b/l LE edema has improved. She c/o intermittent diarrhea vs constipation, which she states is constant. No other complaints today. Objective Active Medications: Acetaminophen (Tylenol Tab*) 650 mg PO Q6H PRN PRN Reason: MILD PAIN or TEMP > 100.4 Apixaban (Eliquis*) 2.5 mg PO BID [facility] Last Admin: 02/14/19 09:41 Dose: 2.5 mg Cholecalciferol (Vitamin D Tab*) 5,000 units PO DAILY [facility] Last Admin: 02/14/19 09:43 Dose: 5,000 units Fish Oil (Fish Oil (Nf)) 1,000 mg PO DAILY [facility]; Protocol Last Admin: 02/14/19 09:40 Dose: 1,000 mg Furosemide (Lasix Iv*) 40 mg IV SLOW PU 0800,1700 [facility] Last Admin: 02/14/19 09:40 Dose: 40 mg Ceftriaxone Sodium 1 gm/ (Sodium Chloride) 50 mls @ 100 mls/hr IVPB Q24HR@2000 [facility] Last Admin: 02/13/19 23:07 Dose: 100 mls/hr Melatonin (Melatonin) 3 mg PO BEDTIME PRN PRN Reason: INSOMNIA Last Admin: 02/13/19 23:06 Dose: 3 mg Ondansetron HCl (Zofran Inj*) 4 mg IV Q6H PRN PRN Reason: NAUSEA Vital Signs: Temp Pulse Resp BP Pulse Ox 98.9 F 73 20 113/58 97 02/14/19 15:15 02/14/19 15:15 02/14/19 15:15 02/14/19 15:15 02/14/19 15:15 Oxygen Devices in Use Now: None Appearance: Ms. Reyes is an older white woman who is sitting up in bed, in no acute distress. Eyes: No Scleral Icterus, PERRLA Ears/Nose/Mouth/Throat: NL Teeth, Lips, Gums, Clear Oropharnyx, Mucous Membranes Moist Neck: NL Appearance and Movements; NL JVP, Trachea Midline Respiratory: Symmetrical Chest Expansion and Respiratory Effort, Clear to Auscultation Cardiovascular: NL Sounds; No Murmurs; No JVD, - - Irregular Abdominal: NL Sounds; No Tenderness; No Distention, No Hepatosplenomegaly Extremities: No Clubbing, Cyanosis, - - b/l LE edema with venous stasis skin changes; lateral RLE with mildly increased edema, erythema, warmth. Neurological: Alert and Oriented x 3 Result Diagrams: 02/14/19 05:09 02/14/19 05:09 Assess/Plan/Problems-Billing Assessment: - Patient Problems (1) Atrial fibrillation Comment: -new onset AF -AF rate controlled without agents -continue Eliquis (new) -continue tele monitor (2) Heart failure Comment: -GUIDO, PND, LE edema, weight gain -echo EF 55-60% -Lasix 40 BID with improvement in SOB, LE edema -goal weight 122-125# -I/O, daily weights (3) UTI (urinary tract infection) Comment: -UA 3+ LE, + nitrates, 1+ bacteria -BC NGTD -Ceftriaxone (4) Cellulitis Comment: -lateral RLE with midly increased erythema, edema, warmth -probable cellulitis covered by ceftriaxone for UTI (5) COPD (chronic obstructive pulmonary disease) Comment: -stable, not in acute exacerbation -does not appear to be on home rx (6) CAD (coronary artery disease) Comment: -d/c asa; continue AC (7) DVT prophylaxis Comment: -apixaban (8) DNR (do not resuscitate)
--- NOTE | 2019-02-14 15:48 | ECHO ---
*[facility]* [place] [address] Fax #: [phone] Transthoracic Echocardiogram Patient: Charline Reyes : 1935 Study Date: 02/14/2019 Age: 83 Gender: F HR: 81 bpm Height: 66 in /167.6 cm BSA: 1.68 m^2 Weight: 131.7 lb /59.9 kg BMI: 21.3 kg/m^2 *Hydroelectric Machinery Mechanic: * Lizz Francis RDCS RN *Referring Physician: * Hill Mendoza *Reading Physician: * Jeff Mckeon MD Indications: Congestive Heart Failure. History: Atrial fibrillation. Coronary artery disease. Chronic obstructive pulmonary disease. Risk factors: Former tobacco use. Hypertension. Dyslipidemia. Labs, prior tests, procedures, and surgery: Coronary artery bypass grafting. Mitral valve repair. Patent foramen ovale closure. Conclusions Summary: - Left ventricle: Systolic function is normal. The estimated ejection fraction is 55-60%. Wall motion is normal; there are no regional wall motion abnormalities. - Right ventricle: Systolic function is normal. - Mitral valve: The mitral valve has been repaired. The leaflets are moderately thickened with restricted mobility. The findings are consistent with mild to moderate stenosis. There is mild regurgitation. The pressure half-time is 103 ms. The mean diastolic gradient is 5.0 mm Hg. The valve area by pressure half-time is 2.3 cm^2. The valve area (LVOT continuity) is 1.1 cm^2. - Aortic valve: The valve is trileaflet. The leaflets are mildly thickened with moderate thickening and decreased mobility of the NCC. The findings are consistent with mild stenosis. There is trace to mild regurgitation. The mean systolic gradient is 3.0 mm Hg. The LVOT to aortic valve VTI ratio is 0.6. The valve area by the velocity-time integral method is 1.88 cm^2. The valve area by the peak velocity method is 2.19 cm^2. - Tricuspid valve: There is mild-moderate regurgitation. - Pericardium, extracardiac: There is no significant pericardial effusion. - Pulmonary arteries: Systolic pressure is estimated to be 30 mm Hg. Pulmonary artery pressure may be underestimated - Compared to study of 08/06/17. There is little change. Study data: Transthoracic echocardiogram. Procedure: Transthoracic echocardiography was performed. Image quality was fair. The study was technically limited due to chest wall deformity and COPD. Complete 2D, spectral Doppler, and color flow Doppler. Location: Bedside. Patient status: Observation. Patient room number: 446-02. Rhythm: Atrial fibrillation. PVCs. Findings Left ventricle: The cavity size is normal. Wall thickness is moderately increased. Systolic function is normal. The estimated ejection fraction is 55-60%. Wall motion is normal; there are no regional wall motion abnormalities. Doppler parameters are consistent with abnormal left ventricular relaxation (grade 1 diastolic dysfunction). Right ventricle: The cavity size is normal. Systolic function is normal. Ventricular septum: Ventricular septal wall motion has a postoperative appearance. The outflow septum has a sigmoid appearance, measuring 1.6 cm. Left atrium: The atrium is moderately dilated. Right atrium: The atrium is mildly to moderately dilated. Mitral valve: The mitral valve has been repaired. The leaflets are moderately thickened with restricted mobility. The findings are consistent with mild to moderate stenosis. There is mild regurgitation. Aortic valve: The valve is trileaflet. The leaflets are mildly thickened with moderate thickening and decreased mobility of the NCC. The findings are consistent with mild stenosis. There is trace to mild regurgitation. Tricuspid valve: The valve is structurally normal. There is no evidence of stenosis. There is mild-moderate regurgitation. Pulmonic valve: The valve is structurally normal. There is no evidence of stenosis. There is trace to mild regurgitation. Aorta: Aortic root: The aortic root is not dilated. Ascending aorta: The ascending aorta is not visualized. Aortic arch: The aortic arch is not visualized. Pericardium: There is no significant pericardial effusion. Pulmonary arteries: Not well visualized. Systolic pressure is estimated to be 30 mm Hg. Pulmonary artery pressure may be underestimated Systemic veins: Inferior vena cava: The vessel is normal in size. There is (>= 50%) respiratory change in the IVC dimension. Measurements Left ventricle Value Ref Right atrium continued Value Ref SID, LAX 5.1 cm 3.8 - 5.2 SI dim, ES, A4C 5.1 cm 3.4 - 5.3 ESD, LAX (H) 3.7 cm 2.2 - 3.5 Estimated RAP 3 mm Hg --------- FS, LAX 28 % 27 - 45 PW, ED (H) 1.3 cm 0.6 - 0.9 Aortic valve Value Ref IVS/PW, ED 1.1 Gale diam, ED 2.0 cm --------- Qs 6.1 L/min Gale diam/bsa, ED 1.2 cm/m^2 --------- E', lat gale, TDI (L) 5.9 cm/sec >=10.0 Peak v, S 0.98 m/sec - -------- E/e', lat gale, 31 VTI, S 22.6 cm ---- ----- TDI Mean grad, S 3.0 mm Hg --------- E', med gale, TDI (L) 5.2 cm/sec >=7.0 Peak grad, S 4.0 mm Hg - -------- E/e', med gale, 35 LVOT/AV, VTI ratio 0.6 ---- ----- TDI AURELIO, VTI 1.88 cm^2 --------- E', avg, TDI 5.6 cm/sec AURELIO, Vmax 2.19 cm^2 ---- ----- E/e', avg, TDI (H) 33 <=14 Mitral valve Value Ref LVOT Value Ref Peak E 1.83 m/sec --------- Diam, S 2.00 cm Decel time 279 ms --------- Area 3.1 cm^2 PHT 103 ms --------- Peak avery, S 0.69 m/sec Mean grad, D 5.0 mm Hg --------- VTI, S 13.5 cm Peak grad, D 13.0 mm Hg --------- Mean grad, S 1 mm Hg MVA, PHT 2.3 cm^2 --------- SV 42 ml SV/bsa 25 ml/m^2 Pulmonic valve Value Ref Peak v, S 0.62 m/sec --------- Ventricular septum Value Ref Peak grad, S 2.0 mm Hg --------- IVS, ED (H) 1.4 cm 0.6 - 0.9 Tricuspid valve Value Ref Right ventricle Value Ref Peak RV-RA grad, S 27 mm Hg --------- SID minor ax, A4C 3.1 cm 1.9 - 3.5 Max TR avery 2.6 m/sec --------- mid Pressure, S 30 mm Hg Aortic root Value Ref Root diam 3.1 cm <3.9 Left atrium Value Ref AP dim, ES (H) 4.90 cm 2.70 - Pulmonary artery Value Ref 3.80 Pressure, S 28.0 mm Hg --------- ML dim, A4C 4.7 cm SI dim, A4C 5.2 cm Inferior vena cava Value Ref Vol/bsa, ES, 1-p (H) 44 ml/m^2 11 - 40 Diam 1.8 cm --------- A4C Vol/bsa, ES, A/L (H) 55 ml/m^2 16 - 34 Right atrium Value Ref ML dim, ES, A4C 4.4 cm 2.6 - 4.4 Legend: (L) and (H) adrian values outside specified reference range. Prepared and electronically signed by Jeff Mckeon MD 02/14/2019 15:48
[2019-02-14] MEDS: cefTRIAXone(*) 1 GM in NS 0.9% 50 ML* 50 ML IVPB SCH (20:01)
[2019-02-15] MEDS: CMCS:OMEGA-3 FATTY ACIDS (NF) 1,000 MG CAP PO SCH (08:27)
[2019-02-15] MEDS: Cholecalciferol TAB* 1000 UNITS PO SCH (08:28)
[2019-02-15] MEDS: Apixaban* 2.5 MG TAB PO SCH ×2 (08:28→20:10)
[2019-02-15] MEDS: Acetaminophen TAB* 325 MG PO PRN (08:28)
[2019-02-15] MEDS: Furosemide IV* 10 MG/ML VIAL (40 MG) IV SLOW PU SCH ×2 (08:29→16:36)
--- NOTE | 2019-02-15 18:38 | PN ---
Subjective Date of Service: 02/15/19 Interval History: Ms. Reyes c/o abdominal, back pain this a.m., which is chronic and now gone. She was up with PT/OT without GUIDO and denies PND. She c/o continued swelling in LE. No other complaints today. Objective Active Medications: Acetaminophen (Tylenol Tab*) 650 mg PO Q6H PRN PRN Reason: MILD PAIN or TEMP > 100.4 Last Admin: 02/15/19 08:28 Dose: 650 mg Apixaban (Eliquis*) 2.5 mg PO BID [facility] Last Admin: 02/15/19 08:28 Dose: 2.5 mg Cholecalciferol (Vitamin D Tab*) 5,000 units PO DAILY [facility] Last Admin: 02/15/19 08:28 Dose: 5,000 units Fish Oil (Fish Oil (Nf)) 1,000 mg PO DAILY [facility]; Protocol Last Admin: 02/15/19 08:27 Dose: 1,000 mg Furosemide (Lasix Iv*) 40 mg IV SLOW PU 0800,1700 [facility] Last Admin: 02/15/19 16:36 Dose: 40 mg Ceftriaxone Sodium 1 gm/ (Sodium Chloride) 50 mls @ 100 mls/hr IVPB Q24HR@2000 [facility] Last Admin: 02/14/19 20:01 Dose: 100 mls/hr Melatonin (Melatonin) 3 mg PO BEDTIME PRN PRN Reason: INSOMNIA Last Admin: 02/13/19 23:06 Dose: 3 mg Ondansetron HCl (Zofran Inj*) 4 mg IV Q6H PRN PRN Reason: NAUSEA Last Admin: 02/15/19 08:29 Dose: 4 mg Vital Signs: Temp Pulse Resp BP Pulse Ox 97.9 F 70 20 118/57 94 02/15/19 15:30 02/15/19 15:30 02/15/19 15:30 02/15/19 15:30 02/15/19 15:30 Oxygen Devices in Use Now: None Appearance: Ms. Reyes is an older white female who is sitting up in chair with LE at floor. She appears comfortable, in no acute distress. Eyes: No Scleral Icterus, PERRLA Ears/Nose/Mouth/Throat: NL Teeth, Lips, Gums, Clear Oropharnyx, Mucous Membranes Moist Neck: NL Appearance and Movements; NL JVP, Trachea Midline Respiratory: Symmetrical Chest Expansion and Respiratory Effort, - - faint bibasilar rales Cardiovascular: NL Sounds; No Murmurs; No JVD, No Edema, - - Irregular Abdominal: NL Sounds; No Tenderness; No Distention, No Hepatosplenomegaly Extremities: No Edema, No Clubbing, Cyanosis, - - 1+ pedal edema b/l; b/l venous stasis changes; lat RLE with edema, very mild erythema Neurological: Alert and Oriented x 3 Result Diagrams: 02/14/19 05:09 02/14/19 05:09 Microbiology and Other Data: Microbiology 02/13/19 20:41 Urine Culture - Preliminary Urine Escherichia Coli 02/13/19 16:39 Aerobic Blood Culture - Preliminary Blood Venous No Growth Day 2 Anaerobic Blood Culture - Preliminary No Growth Day 2 02/13/19 16:39 Aerobic Blood Culture - Preliminary Blood Venous No Growth Day 2 Anaerobic Blood Culture - Preliminary No Growth Day 2 Assess/Plan/Problems-Billing Assessment: - Patient Problems (1) Heart failure Comment: -GUIDO, PND, LE edema, weight gain -echo EF 55-60% -Lasix 40 BID with improvement in SOB, LE edema; continue -goal weight 122-125# -I/O, daily weights (2) Atrial fibrillation Comment: -new onset AF -AF rate controlled without agents -continue Eliquis (new) -continue tele monitor (3) UTI (urinary tract infection) Comment: -UA 3+ LE, + nitrates, 1+ bacteria; culture shows E. coli -BC NGTD -Ceftriaxone (4) Cellulitis Comment: -lateral RLE with midly increased erythema, edema, warmth -ceftriaxone (5) COPD (chronic obstructive pulmonary disease) Comment: -stable, not in acute exacerbation -does not appear to be on home rx (6) CAD (coronary artery disease) Comment: -d/c asa; continue AC (7) DVT prophylaxis Comment: -apixaban (8) DNR (do not resuscitate)
[2019-02-15] MEDS: cefTRIAXone(*) 1 GM in NS 0.9% 50 ML* 50 ML IVPB SCH (20:10)
[2019-02-16] MEDS: CMCS:OMEGA-3 FATTY ACIDS (NF) 1,000 MG CAP PO SCH (08:04)
[2019-02-16] MEDS: Furosemide IV* 10 MG/ML VIAL (40 MG) IV SLOW PU SCH ×2 (08:04→16:19)
[2019-02-16] MEDS: Cholecalciferol TAB* 1000 UNITS PO SCH (08:05)
[2019-02-16] MEDS: Apixaban* 2.5 MG TAB PO SCH ×2 (08:05→20:05)
[2019-02-16] MEDS: Acetaminophen TAB* 325 MG PO PRN (08:05)
--- NOTE | 2019-02-16 20:02 | PN ---
Subjective Date of Service: 02/16/19 Interval History: Patient tells me she feels well. She denies SOB at rest or with exertion, chest pain, lightheadedness/dizziness, abd pain, fever/chills. When ambulating with nursing staff, no observed dyspnea. Objective Active Medications: Acetaminophen (Tylenol Tab*) 650 mg PO Q6H PRN PRN Reason: MILD PAIN or TEMP > 100.4 Last Admin: 02/16/19 08:05 Dose: 650 mg Apixaban (Eliquis*) 2.5 mg PO BID [facility] Last Admin: 02/16/19 08:05 Dose: 2.5 mg Cholecalciferol (Vitamin D Tab*) 5,000 units PO DAILY [facility] Last Admin: 02/16/19 08:05 Dose: 5,000 units Fish Oil (Fish Oil (Nf)) 1,000 mg PO DAILY [facility]; Protocol Last Admin: 02/16/19 08:04 Dose: 1,000 mg Furosemide (Lasix Iv*) 40 mg IV SLOW PU 0800,1700 [facility] Last Admin: 02/16/19 16:19 Dose: 40 mg Ceftriaxone Sodium 1 gm/ (Sodium Chloride) 50 mls @ 100 mls/hr IVPB Q24HR@2000 [facility] Last Admin: 02/15/19 20:10 Dose: 100 mls/hr Melatonin (Melatonin) 3 mg PO BEDTIME PRN PRN Reason: INSOMNIA Last Admin: 02/13/19 23:06 Dose: 3 mg Ondansetron HCl (Zofran Inj*) 4 mg IV Q6H PRN PRN Reason: NAUSEA Last Admin: 02/15/19 08:29 Dose: 4 mg Vital Signs - 8 hr 02/16/19 02/16/19 12:41 15:15 Temperature 98.7 F Pulse Rate 69 Respiratory 20 Rate Blood Pressure 124/66 (mmHg) O2 Sat by Pulse 95 93 Oximetry Oxygen Devices in Use Now: None Appearance: Thin, elderly white female, laying upright in bed, appearing in NAD Eyes: No Scleral Icterus, - - PERRL Ears/Nose/Mouth/Throat: Mucous Membranes Moist Neck: - - neck supple Respiratory: Symmetrical Chest Expansion and Respiratory Effort, Clear to Auscultation Cardiovascular: NL Sounds; No Murmurs; No JVD, RRR Abdominal: - - abd soft, nontender, nondistended Extremities: No Edema, No Clubbing, Cyanosis Skin: - - faint erythema to right lower extremity; chronic brown skin changes to bilateral LEs Neurological: NL Muscle Strength and Tone, - - alert and oriented to self and location Result Diagrams: 02/14/19 05:09 02/14/19 05:09 Microbiology and Other Data: Microbiology 02/13/19 20:41 Urine Culture - Preliminary Urine Escherichia Coli 02/13/19 16:39 Aerobic Blood Culture - Preliminary Blood Venous No Growth Day 2 Anaerobic Blood Culture - Preliminary No Growth Day 2 02/13/19 16:39 Aerobic Blood Culture - Preliminary Blood Venous No Growth Day 2 Anaerobic Blood Culture - Preliminary No Growth Day 2 Assess/Plan/Problems-Billing Assessment: 83 yo female with pMHx HTN, CAD, depression, COPD, and memory loss presents with SOB and lower extremity edema. - Patient Problems (1) Acute congestive heart failure Current Visit: Yes Status: Acute Code(s): I50.9 - HEART FAILURE, UNSPECIFIED SNOMED Code(s): 63113998 Comment: -presented with bilateral LE edema, shortness of breath -echo demonstrates grade I diastolic dysfunction -great improvement with IV lasix. LE edema resolved, SOB resolved, however lung function not optimized as she had O2 sat of 83% with ambulation today -will continue further IV lasix 40mg BID (2) Atrial fibrillation Current Visit: Yes Status: Acute Code(s): I48.91 - UNSPECIFIED ATRIAL FIBRILLATION SNOMED Code(s): 39653107 Comment: -new onset AF -AF rate controlled without agents -continue Eliquis (new) -continue tele monitor (3) Cellulitis Current Visit: Yes Status: Acute Code(s): L03.90 - CELLULITIS, UNSPECIFIED SNOMED Code(s): 005624324 Comment: -lateral RLE with midly increased erythema, edema, warmth -continue ceftriaxone (4) UTI (urinary tract infection) Current Visit: Yes Status: Acute Comment: -UA 3+ LE, + nitrates, 1+ bacteria; culture shows E. coli -BC NGTD -continue ceftriaxone (5) CAD (coronary artery disease) Current Visit: No Status: Chronic Code(s): I25.10 - ATHSCL HEART DISEASE OF [place] CORONARY ARTERY W/O ANG PCTRS SNOMED Code(s): 50525370 Comment: -d/c asa; continue AC -not on BB (6) COPD (chronic obstructive pulmonary disease) Current Visit: No Status: Chronic Code(s): J44.9 - CHRONIC OBSTRUCTIVE PULMONARY DISEASE, UNSPECIFIED SNOMED Code(s): 74470357 Comment: -stable, not in acute exacerbation -does not appear to be on home rx (7) DNR (do not resuscitate) Current Visit: Yes Status: Acute (8) DVT prophylaxis Current Visit: No Status: Acute Code(s): RJE7365 - SNOMED Code(s): 320610889 Comment: -apixaban Status and Disposition: pending improvement with further IV diuresis
[2019-02-16] MEDS: cefTRIAXone(*) 1 GM in NS 0.9% 50 ML* 50 ML IVPB SCH (20:05)
[2019-02-17] MEDS: CMCS:OMEGA-3 FATTY ACIDS (NF) 1,000 MG CAP PO SCH (10:06)
[2019-02-17] MEDS: Cholecalciferol TAB* 1000 UNITS PO SCH (10:07)
[2019-02-17] MEDS: Apixaban* 2.5 MG TAB PO SCH (10:07)
[2019-02-17] MEDS: Furosemide IV* 10 MG/ML VIAL (40 MG) IV SLOW PU SCH (10:08)
[2019-02-17 14:19] VITALS: BP 108/64
--- NOTE | 2019-02-17 21:10 | DS ---
CC: Dr. Milligan * DISCHARGE SUMMARY: DATE OF ADMISSION: 02/13/19 DATE OF DISCHARGE: 02/17/19 ATTENDING PHYSICIAN WHILE IN THE HOSPITAL: Dr. Moncho Lo * (dictated by ASHIA Castillo). PRIMARY CARE PROVIDER: Dr. Milligan. PRIMARY DIAGNOSES: 1. Acute decompensation of congestive heart failure with preserved ejection fraction. 2. Persistent atrial fibrillation. 3. Right lower extremity cellulitis. 4. Urinary tract infection. SECONDARY DIAGNOSES: 1. Coronary artery disease, status post 2-vessel coronary artery bypass graft. 2. Hypertension. 3. Previous history of postoperative atrial fibrillation. 4. Depression. 5. Chronic obstructive pulmonary disease. 6. Osteoporosis. 7. History of diverticulitis. 8. Mild cognitive impairment. STUDIES WHILE IN THE HOSPITAL: Transthoracic echocardiogram on 02/14/19, EF is 55% to 60%, wall motion is normal. There is no regional wall motion abnormalities. Doppler parameters are consistent with abnormal left ventricular relaxation (grade 1 diastolic dysfunction). Ventricular septal wall motion has a postoperative appearance. Chest x-ray on admission on 02/13/19, cardiomegaly and hyperinflation. Per my read, there does appear to be some pulmonary edema. HISTORY OF PRESENT ILLNESS/HOSPITAL COURSE: Charline Reyes is an 83-year-old white female with past medical history significant for hypertension, coronary artery disease status post CABG, history of postoperative atrial fibrillation, who presented to the emergency department on 02/13/19 due to increased bilateral lower extremity swelling, weight gain, and shortness of breath progressing over the course of 3 weeks. For further details, please see the admitting history and physical written by ASHIA Mack, from 02/13/19. The patient was found to be in persistent atrial fibrillation during this hospital stay. The risks and benefits of starting oral anticoagulation were discussed with her and her healthcare proxy and ultimately starting Eliquis was decided. She was started on lower dose due to her weight and her age. Her transthoracic echocardiogram confirmed diastolic heart failure and she was treated with IV Lasix twice a day. During her hospital stay, she was requiring oxygen with ambulation as there was one point where ambulating on room air caused the patient to have an oxygen saturation of 83%. On the day of discharge, this has resolved and she ambulated with oxygen saturation well over 90% on room air. Her lower extremity edema has resolved. There is a small area of erythema on day of discharge to her right lower extremity. It is possible this is a cellulitis. However, she also appeared to have skin changes consistent with chronic vascular insufficiency and this erythema may just be related to this. Given the possibility of cellulitis, though, we will continue to treat. She was treated with ceftriaxone for this during her hospital stay and this selection also covered her UTI, which is positive for pansensitive E. coli. At this point, this has been treated fully with a 5-day course. She was afebrile during the entirety of her hospital stay and was without leukocytosis as well. On day of discharge, the patient is feeling well, she has no complaints. She denies chest pain, palpitations, difficulty breathing. She denies fever, chills. She and her healthcare proxy, Honey Weir, are agreeable with the discharge. PHYSICAL EXAM ON THE DAY OF DISCHARGE: General: Thin elderly white female, lying upright in hospital bed, appearing comfortable, in no acute distress. Eyes: PERRLA. Sclerae anicteric. ENT: Mucous membranes are moist. Neck: Supple without JVD. Lungs: Clear to auscultation throughout. Chest expansion is symmetrical with respirations. Cardio: Regular rate and regular rhythm without murmurs, rubs, or gallops appreciated. Abdomen: Soft, nontender, nondistended. Extremities: No clubbing, cyanosis, or edema. Neuro: The patient is alert and oriented to self and location. Able to move all extremities. No focal deficits. No tremors. Skin: Brown skin changes to bilateral lower extremities consistent with chronic venous changes approximately 3-inch diameter area of erythema in the right lower extremity in the distal aspect of her calf. It is blanchable. DISCHARGE PLAN: Diet: Heart healthy diet. Activity: The patient may return to normal activity as tolerated. The patient is advised to return to emergency department if she is experiencing shortness of breath, severe lower extremity swelling, chest pain, rapid heart rate, fevers or chills, blood in her urine. She is advised to continue weighing herself daily. She is advised to call her primary care office if she experiences a 3- to 5- pound weight gain in a 24-hour period. For now, I am increasing her Lasix from 20 to 40 mg and I would like to see if it prevents further decompensation in this patient. I recommend a followup BMP when she follows up with Dr. Milligan in approximately a week regarding this hospitalization to ensure renal function is tolerating this. She is advised to finish a full course of her antibiotics. DISCHARGE MEDICATIONS: New medications: 1. Apixaban 2.5 mg p.o. b.i.d. 2. Lasix 40 mg p.o. daily. 3. Cefdinir 300 mg p.o. b.i.d. x11 doses. Continued home medications: 1. Tylenol 325 mg p.o. daily. 2. Fish oil 1000 mg p.o. daily. 3. Vitamin D3 cap 5000 units p.o. daily. Discontinued home medications: 1. Celebrex 100 mg p.o. daily. 2. Lasix 20 mg p.o. daily. CONDITION ON DISCHARGE: Stable. DISPOSITION: Home. TIME SPENT: Approximately 40 minutes were spent on this discharge, approximately half of this time was spent at the bedside evaluating the patient and discussing the plan of care. ASHIA CASTILLO [id number]/[facility] #: [id number] MTDD
== END 2019-02-17 15:15 | disposition home or self-care (01) | DRG 292 ==
LOC: ED 15:26 → MEDTELE 20:25 → OBSVTOIN 02-14 11:00
PROVIDERS: ADMIT Internal Medicine; ATTEND Internal Medicine
DX: I11.0 Hypertensive heart disease with heart failure (principal); I48.19 Other persistent atrial fibrillation; L03.115 Cellulitis of right lower limb; N39.0 Urinary tract infection, site not specified; I50.33 Acute on chronic diastolic (congestive) heart failure; J44.9 Chronic obstructive pulmonary disease, unspecified; M81.0 Age-related osteoporosis without current pathological fracture; F32.9 Major depressive disorder, single episode, unspecified; I25.10 Atherosclerotic heart disease of native coronary artery without angina pectoris; G31.84 Mild cognitive impairment of uncertain or unknown etiology; Z66 Do not resuscitate; G89.29 Other chronic pain; R10.9 Unspecified abdominal pain; M54.9 Dorsalgia, unspecified; B96.20 Unspecified Escherichia coli [E. coli] as the cause of diseases classified elsewhere; I99.8 Other disorder of circulatory system; Z88.8 Allergy status to other drugs, medicaments and biological substances; Z88.5 Allergy status to narcotic agent; Z88.6 Allergy status to analgesic agent; Z91.041 Radiographic dye allergy status; Z95.2 Presence of prosthetic heart valve; Z95.1 Presence of aortocoronary bypass graft; Z87.891 Personal history of nicotine dependence; Z72.89 Other problems related to lifestyle; Z79.01 Long term (current) use of anticoagulants; Z79.899 Other long term (current) drug therapy
CPT/HCPCS: 36415; 71045; 80048; 80053; 81003; 81015; 83605; 83735; 83880; 84443; 84484; 85025; 85610; 86140; 87040; 87077; 87086; 87186; 93005; 93306; 96374; 96375; 97530; 99284; A9270-GY; G0378; G8978-GP-CI; G8979-GP-CI; G8980-GP-CI; J0696; J1940; J2405